=== PATIENT | male | born 1945 | race Caucasian/White ===

== ENCOUNTER 2016-06-21 17:43 | Inpatient (IN) | payer MEDICARE ==
[2016-06-21 18:20] LABS: Anisocytosis Slight; Basophils % (A) 0 %; CHCM 33.1; Eosinophils # (A) 0.1 k/uL (0-0.7); Eosinophils % (A) 1 %; HCT 38.8 % (39.0-53.0); HDW 3.35; HGB 12.5 gm/dL (13.0-17.5); Hypochromasia Slight; Luc % (Auto) 1; Lymphocytes # (A) 0.4 k/uL (1.0-4.8); Lymphocytes % (A) 4 %; MCH 30.6 pg (25.0-35.0); MCHC 32.2 g/dL (31.0-37.0); MCV 94.8 fL (80.0-100.0); Mean Platelet Volume 7.1; Monocytes # (A) 0.4 k/uL (0-1.0); Monocytes % (A) 4 %; Neutrophils # (A) 8.6 k/uL (1.3-7.7); Neutrophils % (A) 89 %; RBC 4.09 m/uL (4.30-5.90); RDW 16.4 % (11.5-15.5); WBC 9.7 k/uL (3.8-10.6)
[2016-06-21 18:33] LABS: ALT 31 U/L (21-72); AST 35 U/L (17-59); Alkaline Phosphatase 177 U/L (38-126); Anion Gap 12 mmol/L; Blood Urea Nitrogen 54 mg/dL (9-20); Carbon Dioxide 29 mmol/L (22-30); Chloride 91 mmol/L (98-107); Glucose 104 mg/dL (74-99); INR 1.4 (<1.1); Magnesium 2.4 mg/dL (1.6-2.3); Non-African American GFR(MDRD) 56 (>60 ml/min/1.73 sqM); Partial Thromboplastin Time 28.6 sec (22.0-30.0); Potassium 5.3 mmol/L (3.5-5.1); Sodium 132 mmol/L (137-145); Total Bilirubin 1.3 mg/dL (0.2-1.3)
[2016-06-21 18:52] LABS: Troponin I 0.028 ng/mL (0.000-0.034)
--- NOTE | 2016-06-21 19:21 | ED ---
General Adult HPI - General Chief complaint: Extremity Problem,Nontraumatic Stated complaint: SOB Time Seen by Provider: 06/21/16 17:52 Source: EMS, RN notes reviewed, old records reviewed Mode of arrival: EMS Limitations: physical limitation - History of Present Illness Initial comments: This is a 71-year-old male ER for this. Patient. This patient today presents for evaluation of heart failure. Patient has significant swelling significant shortness of breath and suspected fluid overload with history of heart failure. Patient does have history of liver failure, hypertension, high cholesterol, heart disease, A. fib with RVR and DVT. She has a sinus IHS pain, does admit to infection of his left arm and bilateral legs. Increased weight gain mostly in his abdomenhad prior abdominal paracentesis before. Patient believes his liver failure is due to a call. Patient denies any fevers at this time, mild shortness of breath and cough, patient is on home O2 - Related Data Home Medications Medication Instructions Recorded Confirmed Albuterol Nebulized [Ventolin 2.5 mg INHALATION RT-BID 06/21/16 06/21/16 Nebulized] Albuterol Sulfate [Proair Hfa] 2 puff INHALATION RT-Q6H PRN 06/21/16 06/21/16 Atorvastatin [Lipitor] 10 mg PO HS 06/21/16 06/21/16 Furosemide [Lasix] 80 mg PO BID 06/21/16 06/21/16 Metoprolol Tartrate [Lopressor] 50 mg PO Q12H 06/21/16 06/21/16 Spironolactone 50 mg PO DAILY 06/21/16 06/21/16 Allergies Allergy/AdvReac Type Severity Reaction Status Date / Time No Known Allergies Allergy Verified 06/21/16 18:33 Review of Systems ROS Statement: Those systems with pertinent positive or pertinent negative responses have been documented in the HPI. ROS Other: All systems not noted in ROS Statement are negative. Past Medical History Past Medical History: Atrial Fibrillation, Coronary Artery Disease (CAD), Heart Failure, Deep Vein Thrombosis (DVT), Hyperlipidemia, Hypertension, Liver Disease , Skin Disorder History of Any Multi-Drug Resistant Organisms: MRSA Past Surgical History: No Surgical Hx Reported Past Psychological History: No Psychological Hx Reported Smoking Status: Current every day smoker Past Alcohol Use History: Daily Past Drug Use History: None Reported General Exam Limitations: physical limitation General appearance: alert, in no apparent distress Head exam: Present: atraumatic, normocephalic, normal inspection Eye exam: Present: normal appearance, PERRL, EOMI. Absent: scleral icterus, conjunctival injection, periorbital swelling ENT exam: Present: normal exam, mucous membranes moist Neck exam: Present: normal inspection. Absent: tenderness, meningismus, lymphadenopathy Respiratory exam: Present: normal lung sounds bilaterally. Absent: respiratory distress, wheezes, rales, rhonchi, stridor Cardiovascular Exam: Present: regular rate, normal rhythm, normal heart sounds. Absent: systolic murmur, diastolic murmur, rubs, gallop, clicks GI/Abdominal exam: Present: soft, normal bowel sounds. Absent: distended, tenderness, guarding, rebound, rigid Extremities exam: Present: normal inspection, full ROM, normal capillary refill. Absent: tenderness, pedal edema, joint swelling, calf tenderness Back exam: Present: normal inspection Neurological exam: Present: alert, oriented X3, CN II-XII intact Psychiatric exam: Present: normal affect, normal mood Skin exam: Present: warm, dry, intact, normal color. Absent: rash Course Vital Signs 06/21/16 06/21/16 06/21/16 17:44 17:55 19:27 Temperature 96.7 F L Pulse Rate 94 128 H Respiratory 24 25 H 24 Rate Blood Pressure 142/76 107/68 O2 Sat by Pulse 100 90 L Oximetry EKG Findings - EKG Comments: EKG Findings:: EKG shows A. fib with RVR rate 1:30, QRS 132, QTC 518 Medical Decision Making - Medical Decision Making 71 male here for evaluation of some studs awaking, patient is of bilateral lower leg cellulitis with left arm cellulitis, patient also has kindly liver failure secondary to EtOH with diffuse ascites, severe weight gain, significant shortness of breath. Patient is on home O2 and currently requiring 5 L of oxygen to maintain pulse ox. Patient will be admitted for both cardiac and GI evaluation patient also in A. fib with RVR which is corrected with Cardizem push - Lab Data Result diagrams: 06/21/16 18:08 06/21/16 18:08 Lab Results 06/21/16 06/21/16 06/21/16 Range/Units 18:08 18:08 18:08 WBC 9.7 (3.8-10.6) k/uL RBC 4.09 L (4.30-5.90) m/uL Hgb 12.5 L (13.0-17.5) gm/dL Hct 38.8 L (39.0-53.0) % MCV 94.8 (80.0-100.0) fL MCH 30.6 (25.0-35.0) pg MCHC 32.2 (31.0-37.0) g/dL RDW 16.4 H (11.5-15.5) % Plt Count 267 (150-450) k/uL Neutrophils % 89 % Lymphocytes % 4 % Monocytes % 4 % Eosinophils % 1 % Basophils % 0 % Neutrophils # 8.6 H (1.3-7.7) k/uL Lymphocytes # 0.4 L (1.0-4.8) k/uL Monocytes # 0.4 (0-1.0) k/uL Eosinophils # 0.1 (0-0.7) k/uL Basophils # 0.0 (0-0.2) k/uL Hypochromasia Slight Anisocytosis Slight PT (9.0-12.0) sec INR (<1.1) APTT (22.0-30.0) sec Sodium 132 L (137-145) mmol/L Potassium 5.3 H (3.5-5.1) mmol/L Chloride 91 L (98-107) mmol/L Carbon Dioxide 29 (22-30) mmol/L Anion Gap 12 mmol/L BUN 54 H (9-20) mg/dL Creatinine 1.27 H (0.66-1.25) mg/dL Est GFR (MDRD) Af Amer >60 (>60 ml/min/1.73 sqM) Est GFR (MDRD) Non-Af 56 (>60 ml/min/1.73 sqM) Glucose 104 H (74-99) mg/dL Calcium 9.0 (8.4-10.2) mg/dL Phosphorus 4.0 (2.5-4.5) mg/dL Magnesium 2.4 H (1.6-2.3) mg/dL Total Bilirubin 1.3 (0.2-1.3) mg/dL AST 35 (17-59) U/L ALT 31 (21-72) U/L Alkaline Phosphatase 177 H (38-126) U/L Total Creatine Kinase 125 (55-170) U/L CK-MB (CK-2) 10.0 H* (0.0-2.4) ng/mL CK-MB (CK-2) Rel Index 8.0 Troponin I 0.028 (0.000-0.034) ng/mL NT-Pro-B Natriuret Pep pg/mL Total Protein 7.0 (6.3-8.2) g/dL Albumin 3.6 (3.5-5.0) g/dL 06/21/16 06/21/16 Range/Units 18:08 18:08 WBC (3.8-10.6) k/uL RBC (4.30-5.90) m/uL Hgb (13.0-17.5) gm/dL Hct (39.0-53.0) % MCV (80.0-100.0) fL MCH (25.0-35.0) pg MCHC (31.0-37.0) g/dL RDW (11.5-15.5) % Plt Count (150-450) k/uL Neutrophils % % Lymphocytes % % Monocytes % % Eosinophils % % Basophils % % Neutrophils # (1.3-7.7) k/uL Lymphocytes # (1.0-4.8) k/uL Monocytes # (0-1.0) k/uL Eosinophils # (0-0.7) k/uL Basophils # (0-0.2) k/uL Hypochromasia Anisocytosis PT 14.0 H (9.0-12.0) sec INR 1.4 (<1.1) APTT 28.6 (22.0-30.0) sec Sodium (137-145) mmol/L Potassium (3.5-5.1) mmol/L Chloride (98-107) mmol/L Carbon Dioxide (22-30) mmol/L Anion Gap mmol/L BUN (9-20) mg/dL Creatinine (0.66-1.25) mg/dL Est GFR (MDRD) Af Amer (>60 ml/min/1.73 sqM) Est GFR (MDRD) Non-Af (>60 ml/min/1.73 sqM) Glucose (74-99) mg/dL Calcium (8.4-10.2) mg/dL Phosphorus (2.5-4.5) mg/dL Magnesium (1.6-2.3) mg/dL Total Bilirubin (0.2-1.3) mg/dL AST (17-59) U/L ALT (21-72) U/L Alkaline Phosphatase (38-126) U/L Total Creatine Kinase (55-170) U/L CK-MB (CK-2) (0.0-2.4) ng/mL CK-MB (CK-2) Rel Index Troponin I (0.000-0.034) ng/mL NT-Pro-B Natriuret Pep 05629 pg/mL Total Protein (6.3-8.2) g/dL Albumin (3.5-5.0) g/dL - Radiology Data Radiology results: report reviewed (Chest x-ray negative for acute disease), image reviewed Disposition Clinical Impression: Cellulitis, Left arm cellulitis, Bilateral lower leg cellulitis, Ascites, CHF ( congestive heart failure), Atrial fibrillation with RVR Disposition: ADMITTED IP TO THIS HOSP Condition: Poor
[2016-06-21] MEDS ORDERED: IV VANCOMYCIN PER PHARMACY 1 EACH MISC MISCELLANE PRN (19:48)
[2016-06-21] MEDS: FUROSEMIDE 10 MG/ML 4 ML VIAL IV SCH (20:00)
[2016-06-21] MEDS ORDERED: VANCOMYCIN 1,750 MG in SODIUM CHLORIDE 0.9% 250 ML IVPB ONE (20:00)
[2016-06-21] MEDS ORDERED: HEPARIN SODIUM,PORCINE 5,000 UNIT/ML 1 ML VIAL IV PRN (20:15)
[2016-06-21] MEDS ORDERED: LEVALBUTEROL NEB 1.25 MG/3 ML AMP INHALATION STA (20:15)
[2016-06-21] MEDS ORDERED: HEPARIN SODIUM,PORCINE 5,000 UNIT/ML 1 ML VIAL IV ONE (20:15)
[2016-06-21] MEDS ORDERED: IPRATROPIUM 0.5 MG/2.5 ML NEBU INHALATION STA (20:15)
[2016-06-21] MEDS ORDERED: HEPARIN SODIUM,PORCINE/D5W PMX 25,000 UNIT in DEXTROSE/WATER 1 500ML.BAG IV SCH (20:15)
--- NOTE | 2016-06-21 20:15 | XR ---
EXAMINATION TYPE: XR chest 2V DATE OF EXAM: 06/21/2016 8:09 PM COMPARISON: NONE HISTORY: Shortness of breath TECHNIQUE: Frontal and lateral views of the chest are obtained. FINDINGS: Scattered senescent parenchymal changes noted. Hyperinflation compatible with COPD. Right basilar pleural effusion with associated atelectasis or infiltrate difficult to exclude. Heart size is enlarged without evidence for overt failure at this time. Mediastinal structures are stable and grossly unremarkable. No evidence for hilar prominence. Degenerative changes dorsal spine. IMPRESSION: 1. Right basilar pleural effusion with associated atelectasis or infiltrate difficult to exclude.
[2016-06-21] MEDS ORDERED: ALBUTEROL INHALER 60 PUFF/8 GM INHALER INHALATION PRN (21:52)
[2016-06-21] MEDS: METOPROLOL TARTRATE 50 MG TAB PO SCH (23:46)
[2016-06-21] MEDS: ATORVASTATIN 10 MG TAB PO SCH (23:47)
[2016-06-22] MEDS ORDERED: IPRATROPIUM-ALBUTEROL 3 ML NEB INHALATION SCH
[2016-06-22 02:35] LABS: Appearance,Urine Clear (Clear); Bilirubin,Urine Negative (Negative); Glucose,Urine (UA) Negative (Negative); Ketones,Urine Negative (Negative); Leukocyte Esterase,Urine Negative (Negative); Nitrite,Urine Negative (Negative); Protein,Urine Trace (Negative); Specific Gravity,Urine 1.011 (1.001-1.035); UA Billing (MACRO vs. MICRO) CHEM
[2016-06-22 02:44] LABS: Anisocytosis Slight; Basophils # (A) 0.1 k/uL (0-0.2); Basophils % (A) 1 %; CH 30.8; CHCM 31.4; Eosinophils # (A) 0.1 k/uL (0-0.7); Eosinophils % (A) 1 %; HDW 3.25; HGB 12.2 gm/dL (13.0-17.5); Hypochromasia Moderate; Luc # (Auto) 0.12; Luc % (Auto) 1; Lymphocytes # (A) 0.5 k/uL (1.0-4.8); Lymphocytes % (A) 4 %; MCH 29.6 pg (25.0-35.0); MCHC 29.9 g/dL (31.0-37.0); MCV 99.1 fL (80.0-100.0); Macrocytosis Slight; Mean Platelet Volume 7.9; Monocytes # (A) 0.6 k/uL (0-1.0); Monocytes % (A) 6 %; Neutrophils % (A) 87 %; RBC 4.13 m/uL (4.30-5.90); RDW 16.5 % (11.5-15.5); WBC 10.3 k/uL (3.8-10.6); WBC (Perox) 10.61
[2016-06-22] MEDS: FUROSEMIDE 10 MG/ML 4 ML VIAL IV SCH (07:23)
[2016-06-22] MEDS ORDERED: ALBUTEROL NEBULIZED 2.5 MG/3 ML INHALATION SCH (08:00)
[2016-06-22] MEDS: IPRATROPIUM-ALBUTEROL 3 ML NEB INHALATION SCH ×4 (08:21→20:45)
[2016-06-22] MEDS ORDERED: ENOXAPARIN 40 MG/0.4 ML SYRINGE SQ SCH (09:00)
[2016-06-22] MEDS ORDERED: SPIRONOLACTONE 25 MG TAB PO SCH ×2 (09:00)
[2016-06-22] MEDS: METOPROLOL TARTRATE 50 MG TAB PO SCH (09:50)
--- NOTE | 2016-06-22 10:08 | P.CRDCN ---
History of Present Illness Consult date: 06/22/16 Requesting physician: Constantin Zaldivar Consult reason: shortness of breath Chief complaint: Shortness of breath History of present illness: This is a 71-year-old gentleman with known history of EtOH abuse, nicotine dependence, ascites, liver failure, hypertension, hyperlipidemia, COPD with home O2 use,, he presents to the hospital with symptoms of progressive shortness of breath as well as significant fluid overload abdominally. Patient has undergone prior paracentesis in the past at [facility]. Cardiology consultation was requested because of a possible congestive cardiac failure. Patient also has history of chronic persistent atrial fibrillation, EKG on admission shows atrial fibrillation with rapid ventricular response and a right bundle branch block pattern. He is not on anticoagulation at home. Blood pressure on arrival here 142/76, temperature 96.7, heart rate initially in the 90s, up into the 120s, fluctuating. Lab data reviewed, hemoglobin 12.2, platelet count 240, calcium 5.3, BUN 54, creatinine 1.2. Magnesium level II.4. Troponin 0.028, 0.043, 0.052. BNP level 36,900. Chest x-ray reveals right basilar pleural effusion with associated atelectasis. Patient was initiated on IV Lasix in the emergency room, urine output is minimal. Past Medical History Past Medical History: Atrial Fibrillation, Coronary Artery Disease (CAD), Heart Failure, Deep Vein Thrombosis (DVT), Hyperlipidemia, Hypertension, Liver Disease , Skin Disorder History of Any Multi-Drug Resistant Organisms: MRSA Date of last positivie culture/infection: unknown MDRO Source:: unknown Past Surgical History: No Surgical Hx Reported Past Anesthesia/Blood Transfusion Reactions: No Reported Reaction Past Psychological History: No Psychological Hx Reported Smoking Status: Current every day smoker Past Alcohol Use History: Daily Past Drug Use History: None Reported - Past Family History Father History Unknown: Yes Mother History Unknown: Yes Brother(s) Additional Family Medical History / Comment(s): polio Medications and Allergies Home Medications Medication Instructions Recorded Confirmed Type Albuterol Nebulized [Ventolin 2.5 mg INHALATION RT-BID 06/21/16 06/21/16 History Nebulized] Albuterol Sulfate [Proair Hfa] 2 puff INHALATION RT-Q6H PRN 06/21/16 06/21/16 History Atorvastatin [Lipitor] 10 mg PO HS 06/21/16 06/21/16 History Furosemide [Lasix] 80 mg PO BID 06/21/16 06/21/16 History Metoprolol Tartrate [Lopressor] 50 mg PO Q12H 06/21/16 06/21/16 History Spironolactone 50 mg PO DAILY 06/21/16 06/21/16 History Allergies Allergy/AdvReac Type Severity Reaction Status Date / Time No Known Allergies Allergy Verified 06/21/16 22:31 Physical Exam Vitals: Vital Signs Temp Pulse Pulse Resp BP BP Pulse Ox 06/22/16 08:46 118 H 06/22/16 08:33 120 H 20 90 L 06/22/16 04:00 102 H 20 118/76 90 L 06/22/16 00:00 98.3 F 118 H 24 112/70 91 L 06/21/16 21:50 119 H 24 119/77 90 L 06/21/16 21:09 145 H 06/21/16 21:00 112 H 24 122/74 90 L Intake and Output 06/21/16 06/22/16 06/22/16 22:59 06:59 14:59 Intake Total 171.222 Output Total 150 Balance -150 171.222 Intake: IV 60 0.9 60 Intake, IV Titration 111.222 Amount Heparin Sodium,Porcine/ 111.222 D5w Pmx 25,000 unit In Dextrose/Water 1 500ml. bag @ 9.03 UNITS/KG/HR 19 .98 mls/hr IV .Q24H [facility] Rx#:[id number] Output: Urine 150 Other: Voiding Method Urinal # Voids 1 # Bowel Movements 1 Weight 111 kg PHYSICAL EXAMINATION: HEENT: Head is atraumatic, normocephalic. Pupils equal, round. Neck is supple. There is elevated jugular venous pressure. HEART EXAMINATION: Heart S1 and S2 irregular irregular a systolic murmur is heard. CHEST EXAMINATION: Lungs reveal scattered coarse wheezes throughout with diminished air entry to bilateral bases. ABDOMEN: Distended, firm, bowel sounds heard. . EXTREMITIES: 1+ peripheral pulses with 2+ evidence of peripheral edema and no calf tenderness noted. Evidence of venous stasis and chronic ulcerations bilaterally. NEUROLOGIC patient is awake, alert and oriented -3. . Results 06/22/16 02:24 06/21/16 18:08 Cardiac Enzymes 06/22/16 Range/Units 02:24 Troponin I 0.043 H* (0.000-0.034) ng/mL Coagulation 06/22/16 Range/Units 02:24 APTT 50.9 H (22.0-30.0) sec CBC 06/22/16 Range/Units 02:24 WBC 10.3 (3.8-10.6) k/uL RBC 4.13 L (4.30-5.90) m/uL Hgb 12.2 L (13.0-17.5) gm/dL Hct 41.0 (39.0-53.0) % Plt Count 240 (150-450) k/uL Current Medications Generic Name Dose Route Start Last Admin Trade Name Freq PRN Reason Stop Dose Admin Albuterol/Ipratropium 3 ml 06/22/16 08:00 06/22/16 08:21 Duoneb 0.5 Mg-3 Mg/3 Ml Soln INHALATION 3 ml RT-QID [facility] Administration Albuterol/Ipratropium 3 ml 06/21/16 20:29 Duoneb 0.5 Mg-3 Mg/3 Ml Soln INHALATION RT-Q2H PRN Shortness Of Breath Or Wheezing Atorvastatin Calcium 10 mg 06/21/16 22:00 06/21/16 23:47 Lipitor PO 10 mg HS [facility] Administration Furosemide 40 mg 06/21/16 19:45 06/22/16 07:23 Lasix IV 40 mg Q12H [facility] Administration Heparin Sodium (Porcine) 0 unit 06/21/16 20:15 Heparin IV PER PROTOCOL PRN Low PTT Protocol Vancomycin HCl 1,750 mg/ 250 mls @ 125 mls/hr 06/22/16 12:00 Sodium Chloride IVPB Q16H [facility] Heparin Sodium/Dextrose 25,000 500 mls @ 19.98 mls/hr 06/21/16 20:15 02:54 unit/ IV Solution IV 9.03 units/kg/hr .Q24H [facility] 19.98 mls/hr Protocol Titration 9.03 UNITS/KG/HR Metoprolol Tartrate 50 mg 06/21/16 22:00 06/21/16 23:46 Lopressor PO 50 mg Q12H [facility] Administration Spironolactone 25 mg 06/22/16 09:00 Aldactone PO DAILY [facility] Intake and Output 06/21/16 06/22/1606/22/17 22:59 06:59 14:59 Intake Total 171.222 Output Total 150 Balance -150 171.222 Intake: IV 60 0.9 60 Intake, IV Titration 111.222 Amount Heparin Sodium,Porcine/ 111.222 D5w Pmx 25,000 unit In Dextrose/Water 1 500ml. bag @ 9.03 UNITS/KG/HR 19 .98 mls/hr IV .Q24H [facility] Rx#:[id number] Output: Urine 150 Other: Voiding Method Urinal # Voids 1 # Bowel Movements 1 Weight 111 kg 06/22/16 02:24 EKG Interpretations (text) EKG shows atrial fibrillation with a rapid ventricular response, right bundle branch block pattern. Assessment and Plan Plan: Assessment and plan #1 congestive cardiac failure, unsure at this time if it is diastolic or systolic in nature. Patient is on IV Lasix. #2 ascites, patient has history of liver failure with prior paracentesis in the past. #3 hypertension #4 COPD # 5 hyperlipidemia #6 chronic persistent atrial fibrillation, not on anticoagulation at home. Currently on IV heparin. #7 nicotine dependence #8 EtOH abuse #9 hyperkalemia #10 troponin abnormality, not consistent with acute coronary syndrome, likely secondary to oxygen supply and demand mismatch. Plan We will obtain an echocardiogram with Doppler study. We will also discontinue the IV push Lasix and start the patient on a Lasix drip. Monitor intake and output and daily weights, along with daily lytes BUN and creatinine closely. Check free T4 and TSH. We will also hold the patient's Aldactone at this time because of elevated potassium. Patient was seen in consultation by GI service and plans are being made to perform paracentesis. Further recommendations to follow. DNP note has been reviewed, I agree with a documented findings and plan of care. Patient was seen and examined.
[2016-06-22] MEDS: FUROSEMIDE 250 MG in SODIUM CHLORIDE 0.9% 225 ML IVP SCH (10:55)
--- NOTE | 2016-06-22 11:39 | P.CONS ---
History of Present Illness - Reason for Consult Consult date: 06/22/16 ascites Requesting physician: Constantin Zaldivar - History of Present Illness 71-year-old gentleman patient of Dr. Andersen with a past medical history of chronic atrial fibrillation, alcohol liver cirrhosis, EtOH abuse with active daily alcohol consumption, portal hypertension, ascites with paracentesis, COPD O2 dependent, CAD, heart failure, DVT, hypertension, hyperlipidemia, MRSA, and nicotine cigarette dependency. Admitted with shortness of breath and ascites. He's had a few paracentesis is done over the last year at [facility] last paracentesis about 5-6 months ago. Patient requested for ascites. Patient has a distended abdomen as well as lower extremities. He is receiving intravenous heparin as well as diuretics. Troponin 0.028-0.052. BMP 36,000. Afebrile. No reports of hematemesis, hematochezia, or melena. Receiving IV vancomycin for suspected cellulitis of the extremities. Hemoglobin 12.2. Platelet 240. INR 1.4. BUN 54. Creatinine 1.2. Potassium 5.3. Magnesium 2.4. Repeat comprehensive metabolic panel pending today. Admission transaminases total bilirubin 1.3. AST 35. ALT 31. Alkaline phosphatase 177. Review of Systems All systems: negative (See HPI) Past Medical History Past Medical History: Atrial Fibrillation, Coronary Artery Disease (CAD), Heart Failure, Deep Vein Thrombosis (DVT), Hyperlipidemia, Hypertension, Liver Disease , Skin Disorder History of Any Multi-Drug Resistant Organisms: MRSA Year Discovered:: unknown MDRO Source:: unknown Past Surgical History: No Surgical Hx Reported Past Anesthesia/Blood Transfusion Reactions: No Reported Reaction Past Psychological History: No Psychological Hx Reported Smoking Status: Current every day smoker Past Alcohol Use History: Daily Past Drug Use History: None Reported - Past Family History Father History Unknown: Yes Mother History Unknown: Yes Brother(s) Additional Family Medical History / Comment(s): polio Medications and Allergies Home Medications Medication Instructions Recorded Confirmed Type Albuterol Nebulized [Ventolin 2.5 mg INHALATION RT-BID 06/21/16 06/21/16 History Nebulized] Albuterol Sulfate [Proair Hfa] 2 puff INHALATION RT-Q6H PRN 06/21/16 06/21/16 History Atorvastatin [Lipitor] 10 mg PO HS 06/21/16 06/21/16 History Furosemide [Lasix] 80 mg PO BID 06/21/16 06/21/16 History Metoprolol Tartrate [Lopressor] 50 mg PO Q12H 06/21/16 06/21/16 History Spironolactone 50 mg PO DAILY 06/21/16 06/21/16 History Allergies Allergy/AdvReac Type Severity Reaction Status Date / Time No Known Allergies Allergy Verified 06/21/16 22:31 Physical Exam Vitals: Vital Signs Temp Pulse Pulse Resp BP BP Pulse Ox 06/22/16 11:28 90 06/22/16 11:16 90 06/22/16 10:23 92 91 L 06/22/16 09:15 95 F L 92 20 100/58 85 L 06/22/16 08:46 118 H 06/22/16 08:33 120 H 20 90 L 06/22/16 08:00 20 06/22/16 04:00 102 H 20 118/76 90 L 06/22/16 00:00 98.3 F 118 H 24 112/70 91 L 06/21/16 21:50 119 H 24 119/77 90 L 06/21/16 21:09 145 H 06/21/16 21:00 112 H 24 122/74 90 L Intake and Output 06/21/16 06/22/16 06/22/16 22:59 06:59 14:59 Intake Total 171.222 Output Total 150 Balance -150 171.222 Intake: IV 60 0.9 60 Intake, IV Titration 111.222 Amount Heparin Sodium,Porcine/ 111.222 D5w Pmx 25,000 unit In Dextrose/Water 1 500ml. bag @ 9.03 UNITS/KG/HR 19 .98 mls/hr IV .Q24H [facility] Rx#:[id number] Output: Urine 150 Other: Voiding Method Urinal Urinal # Voids 1 # Bowel Movements 1 Weight 111 kg General appearance: The patient is alert, oriented, mild shortness of breath. HET: Head is normocephalic and atraumatic. Pupils are equal and reactive. Oropharynx is clear without lesions. Neck: Supple without lymphadenopathy. Trachea midline. Heart: S1 S2. Regular rate and rhythm. Lungs: Managed bilaterally. Abdomen: Distended tense with ascites with bowel sounds sounds. No peritoneal signs. No palpable organomegaly or masses. Extremities: Diffuse scaly skin multiple hyperkeratosis areas on all extremities , face with telangiectasia. No asterixis. +2/+3 bilaterally lower extremity edema. Neurological: No focal deficits. Strength and sensation are grossly intact. Results CBC & Chem 7: 06/22/16 02:24 06/21/16 18:08 Labs: Abnormal Lab Results - Last 24 Hours (Table) 06/22/16 06/22/16 06/22/16 Range/Units 00:00 02:24 02:24 RBC (4.30-5.90) m/uL Hgb (13.0-17.5) gm/dL MCHC (31.0-37.0) g/dL RDW (11.5-15.5) % Neutrophils # (1.3-7.7) k/uL Lymphocytes # (1.0-4.8) k/uL APTT 50.9 H (22.0-30.0) sec Troponin I 0.043 H* (0.000-0.034) ng/mL Urine Protein Trace H (Negative) 06/22/16 06/22/16 Range/Units 02:24 08:20 RBC 4.13 L (4.30-5.90) m/uL Hgb 12.2 L (13.0-17.5) gm/dL MCHC 29.9 L (31.0-37.0) g/dL RDW 16.5 H (11.5-15.5) % Neutrophils # 9.0 H (1.3-7.7) k/uL Lymphocytes # 0.5 L (1.0-4.8) k/uL APTT (22.0-30.0) sec Troponin I 0.052 H* (0.000-0.034) ng/mL Urine Protein (Negative) Assessment and Plan (1) Ascites Narrative/Plan: Acute on chronic Status: Chronic (2) Alcoholic liver disease Status: Chronic (3) Portal hypertension Status: Chronic (4) Coagulopathy Status: Chronic (5) ETOH abuse Status: Chronic (6) Atrial fibrillation with RVR Status: Acute (7) CHF (congestive heart failure) Status: Acute (8) MRSA (methicillin resistant Staphylococcus aureus) Narrative/Plan: History of MRSA Status: Chronic Plan: 1. IV diuretics. Recommend Aldactone 100 mg daily once potassium improves. 2. Consult interventional radiology. Ultrasound abdomen evaluation of ascites and proceed with therapeutic diagnostic paracentesis. 3. Ammonia level in the a.m. Supportive measures. Alcohol abstinence strongly advised. Thank you for this kind referral and the opportunity to participate in the care of your patient. This consultation was discussed with Dr. Rodríguez. The impression and plan of care have been directed as dictated.
[2016-06-22] MEDS: SPIRONOLACTONE 25 MG TAB PO SCH ×2 (12:21→22:29)
[2016-06-22] MEDS: VANCOMYCIN 1,750 MG in SODIUM CHLORIDE 0.9% 250 ML IVPB SCH (12:27)
[2016-06-22 12:30] LABS: INR 1.5 (<1.1); Prothrombin Time 14.4 sec (9.0-12.0)
--- NOTE | 2016-06-22 13:01 | HP ---
DATE OF ADMISSION: 06/21/2016 PRESENTING COMPLAINT: Short of breath, swelling. HISTORY OF PRESENTING COMPLAINT: This is a 71-year-old patient of Dr. Darien Andersen. Patient is a poor historian with ( ) medical history of hyperlipidemia, hypertension, liver disease. The patient is a smoker, says he drinks 2 beers but probably drank much more in the past. He has been told he had got liver disease. He did see Dr. Andersen about a month ago. Progressively his abdomen has got distended, lower extremity edema, short of breath. Patient is cyanosed. The patient is started on a Lasix drip. The patient is also short of breath. REVIEW OF SYSTEMS: CONSTITUTIONAL: Weak, tired. HEENT: None. RESPIRATORY: Short of breath slight cough. CARDIOVASCULAR: No chest pain. GASTROINTESTINAL: Abdominal distention. GENITOURINARY: None. MUSCULOSKELETAL: None. DERMATOLOGICAL: Chronic change lower extremity and some redness. PSYCHIATRY: None. NEUROLOGICAL: Decreased sensation in the feet. PAST MEDICAL HISTORY: Questionable atrial fibrillation, coronary artery disease, CHF, DVT, hyperlipidemia, hypertension, liver disease. PAST SURGICAL HISTORY: None reported. SOCIAL HISTORY: The patient smokes a pack and a half day and drinks 2 or 3 beers a day more so in the past. Lives by himself. FAMILY HISTORY: Reviewed noncontributory on presentation. HOME MEDICATIONS: 1. Aldactone 50 mg a day. 2. Lopressor 50 mg p.o. q.12. 3. Lasix 80 mg b.i.d. 4. Lipitor 10 mg q.h.s. 5. ProAir 2 puffs q.6 p.r.n. 6. Ventolin nebulizer b.i.d. ALLERGIES: None. ON EXAMINATION: VITAL SIGNS ON PRESENTATION: Temperature 96.7, pulse 120, respirations 25, blood pressure 142/76, pulse ox 100% on 2 L, repeat is 90% on 4 L. GENERAL APPEARANCE: Very disheveled. BMI 32.3. Lying in bed. EYES: Pupils equal. Conjunctivae ( ) appearing. HEENT: Patient got facial discoloration with scaling. Oral cavity poor dental hygiene. NECK: JVD. Neck veins are prominent. Mass not palpable. RESPIRATORY: Effort increased. LUNGS: Diminished breath sounds, poor air entry. CARDIOVASCULAR: Sounds are muffled. Edema present. ABDOMEN: Distended, tense, minimal tenderness. Liver and spleen unable to palpate. LYMPHATIC: No lymph node palpable in the neck or axillae. PSYCHIATRY: Awake, answering questions. DERMATOLOGICAL: Gross discoloration of lower extremity with cyanosis, central cyanosis and distal cyanosis. Nails are onychomycosis and also there is discoloration of lower extremity with lichenification. NEUROLOGICAL: Decreased sensation, especially distally. Also the patient upper extremity similar findings are present. INVESTIGATIONS: White count 9.7, hemoglobin 12.5, platelets 267. Pro time 14. Potassium 5.3. BUN 54, creatinine 1.27. Bilirubin 1.3. Pro-BNP 36,900. Albumin 3.6. EKG shows atrial fibrillation, rate about 130. Chest x-ray shows gross cardiomegaly, pulmonary edema. ASSESSMENT: 1. Acute on chronic congestive heart failure exacerbation, severe. 2. Acute respiratory failure, hypoxic, present on admission, from underlying chronic obstructive pulmonary disease/congestive heart failure. 3. Acute chronic obstructive pulmonary disease exacerbation in a smoker. 4. Chronic nicotine dependence. Patient is a smoker. 5. Persistent atrial fibrillation with rapid ventricular rate. 6. Possibly chronic kidney disease. 7. History of chronic alcoholism. 8. Troponin leak probably from hemodynamic mismatch. 9. Acute cellulitis, both upper in upper extremities and lower extremities. 10. Tense ascites, could be combination from cor pulmonale and from liver disease. PLAN: Patient was put on Lasix drip. Will also add ( ). A 2-D echocardiogram is ordered. Also, patient was put on nebulized bronchodilator, will give a nicotine patch. Patient clinically also got tense ascites, which will need to be tapped. The patient also got some evidence of cellulitis, will be put on antibiotics for the same.
--- NOTE | 2016-06-22 14:45 | P.CNPUL ---
History of Present Illness Consult date: 06/22/16 Requesting physician: Constantin Zaldivar Reason for consult: pleural effusion, abnormal CXR/CT Chief complaint: Lower extremity edema and shortness of breath History of present illness: This is a 71-year-old gentleman who follows with Dr. Andersen as his primary care physician. He has a past medical history of hyperlipidemia, hypertension, atrial fibrillation, congestive heart failure, DVT and alcoholic liver disease. He has had paracentesis in the past, most recently 5-6 months ago at [facility]. He also has a 50 pack per day smoking history and he only utilizes pro-air in the outpatient setting. He is oxygen dependent at home, usually 3-4 L. The patient appears chronically ill. He has significant lower extremity edema with weeping and redness with suspected cellulitis. He has significant abdominal distention. He is also found to be in atrial fibrillation with a rapid ventricular response. His proBNP level was greater than 36,000, TSH 11.0. His chest x-ray does reveal a right basilar pleural effusion with associated atelectasis and possible infiltrate. Abdominal ultrasound is pending. He may require paracentesis on this admission. Presently he is seen in the selective care unit. He is awake and alert and slight respiratory distress. He is maintaining O2 saturations in the low 90s on 10 L of high flow nasal cannula. His been initiated on Lasix drip currently at 10 mg per hour. He is also on Aldactone. We will continue with bronchodilators and antibiotics in the form of vancomycin. Review of Systems 14 point review of system was conducted. All negative other than as mentioned in HPI. Past Medical History Past Medical History: Atrial Fibrillation, Coronary Artery Disease (CAD), Heart Failure, Deep Vein Thrombosis (DVT), Hyperlipidemia, Hypertension, Liver Disease , Skin Disorder History of Any Multi-Drug Resistant Organisms: MRSA Date of last positivie culture/infection: unknown MDRO Source:: unknown Past Surgical History: No Surgical Hx Reported Past Anesthesia/Blood Transfusion Reactions: No Reported Reaction Past Psychological History: No Psychological Hx Reported Smoking Status: Current every day smoker Past Alcohol Use History: Daily Past Drug Use History: None Reported - Past Family History Father History Unknown: Yes Mother History Unknown: Yes Brother(s) Additional Family Medical History / Comment(s): polio Medications and Allergies Home Medications Medication Instructions Recorded Confirmed Type Albuterol Nebulized [Ventolin 2.5 mg INHALATION RT-BID 06/21/16 06/21/16 History Nebulized] Albuterol Sulfate [Proair Hfa] 2 puff INHALATION RT-Q6H PRN 06/21/16 06/21/16 History Atorvastatin [Lipitor] 10 mg PO HS 06/21/16 06/21/16 History Furosemide [Lasix] 80 mg PO BID 06/21/16 06/21/16 History Metoprolol Tartrate [Lopressor] 50 mg PO Q12H 06/21/16 06/21/16 History Spironolactone 50 mg PO DAILY 06/21/16 06/21/16 History Allergies Allergy/AdvReac Type Severity Reaction Status Date / Time No Known Allergies Allergy Verified 06/21/16 22:31 Physical Exam Vitals: Vital Signs Temp Pulse Pulse Resp BP BP Pulse Ox 06/22/16 12:20 100 93 L 06/22/16 11:35 98 24 102/65 75 L 06/22/16 11:28 90 06/22/16 11:16 90 06/22/16 10:23 92 91 L 06/22/16 09:15 95 F L 92 20 100/58 85 L 06/22/16 08:46 118 H 06/22/16 08:33 120 H 20 90 L 06/22/16 08:00 20 06/22/16 04:00 102 H 20 118/76 90 L 06/22/16 00:00 98.3 F 118 H 24 112/70 91 L 06/21/16 21:50 119 H 24 119/77 90 L 06/21/16 21:09 145 H 06/21/16 21:00 112 H 24 122/74 90 L Intake and Output 06/21/16 06/22/16 06/22/16 22:59 06:59 14:59 Intake Total 171.222 200 Output Total 150 Balance -150 171.222 200 Intake: IV 60 0.9 60 Intake, IV Titration 111.222 Amount Heparin Sodium,Porcine/ 111.222 D5w Pmx 25,000 unit In Dextrose/Water 1 500ml. bag @ 9.03 UNITS/KG/HR 19 .98 mls/hr IV .Q24H [facility] Rx#:[id number] Oral 200 Output: Urine 150 Other: Voiding Method Urinal Urinal # Voids 1 # Bowel Movements 1 Weight 111 kg GENERAL EXAM: Alert, comfortable at rest in no acute distress. HEAD: Normocephalic. EYES: Normal reaction of pupils, equal size. NOSE: Clear with pink turbinates. THROAT: No erythema or exudates. NECK: No masses, positive JVD. CHEST: No chest wall deformity. LUNGS: Equal air entry with crackles in the bilateral posterior bases, more so on the right. CVS: S1 and S2 normal with no audible murmurs, regular rhythm. ABDOMEN: Distended, positive fluid wave. Normal bowel sounds, no guarding or rigidity. Extremities: There is 2-3+ lower extremity peripheral edema. Redness and changes of chronic venous stasis. Peripheral pulses are intact. Results - Laboratory Findings CBC and BMP: 06/22/16 02:24 06/21/16 18:08 PT/INR, D-dimer PT 14.4 sec (9.0-12.0) H 06/22/16 02:24 INR 1.5 (<1.1) 06/22/16 02:24 Abnormal lab findings: Abnormal Labs 06/22/16 06/22/16 06/22/16 00:00 02:24 02:24 RBC Hgb MCHC RDW Neutrophils # Lymphocytes # PT APTT 50.9 H Troponin I 0.043 H* TSH Urine Protein Trace H 06/22/16 06/22/16 06/22/16 02:24 02:24 08:20 RBC 4.13 L Hgb 12.2 L MCHC 29.9 L RDW 16.5 H Neutrophils # 9.0 H Lymphocytes # 0.5 L PT 14.4 H APTT Troponin I 0.052 H* TSH Urine Protein 06/22/16 08:20 RBC Hgb MCHC RDW Neutrophils # Lymphocytes # PT APTT Troponin I TSH 11.000 H Urine Protein - Diagnostic Findings Chest x-ray: image reviewed Assessment and Plan Plan: Impression: #1 Dyspnea, multifactorial in a patient found to have significant abdominal ascites, acute exacerbation of chronic obstructive pulmonary disease complicated by suspected right lower lobe atelectasis/infiltrate, acute exacerbation of suspected diastolic congestive heart failure, atrial fibrillation with rapid ventricular response. #2 Acute exacerbation of suspected chronic obstructive pulmonary disease. #3 50+ year pack per day smoking history. #4 Basilar pleural effusion with associated atelectasis/infiltrate. #5 ascites secondary to alcoholic liver disease. #6 Daily alcohol use. #7 Atrial fibrillation with rapid ventricular response, not anticoagulated in the outpatient setting. #8 Chronic lower extremity edema or #9 Acute on chronic suspected diastolic versus systolic congestive heart failure. #10 Hyperlipidemia. #11 History of DVT. #12 Hyperlipidemia. #13 Coronary artery disease. #14 Poor overall functional performance secondary to the above-mentioned multiple comorbidities. Plan: The patient was seen and evaluated by Dr. Copeland. His chest x-ray and labs were reviewed. We suspect the patient has a significant amount of chronic obstructive pulmonary disease secondary to his chronic and ongoing tobacco dependence. We'll continue with bronchodilators for now. We'll add Pulmicort and Perforomist inhalations twice a day. A NicoDerm patch will be applied. He is educated regarding the importance of complete smoking cessation is along with complete alcohol cessation. He remains on vancomycin. We'll continue to diurese the patient. The plan is for a paracentesis to be performed by interventional radiology. Anticoagulants are on hold. We'll repeat his chest x -ray in the a.m. We'll continue to follow make further recommendations based on his clinical status.
--- NOTE | 2016-06-22 16:11 | US ---
Limited abdomen ultrasound HISTORY: Ascites Evaluation of the abdomen performed to evaluate for ascites. Moderate ascites is present. IMPRESSION: Ascites
[2016-06-22 16:34] LABS: ALT 33 U/L (21-72); AST 34 U/L (17-59); Alkaline Phosphatase 166 U/L (38-126); Anion Gap 15 mmol/L; Blood Urea Nitrogen 57 mg/dL (9-20); Calcium 9.2 mg/dL (8.4-10.2); Carbon Dioxide 25 mmol/L (22-30); Chloride 94 mmol/L (98-107); Glucose 94 mg/dL (74-99); Non-African American GFR(MDRD) 50 (>60 ml/min/1.73 sqM); Potassium 6.1 mmol/L (3.5-5.1); Sodium 134 mmol/L (137-145); Total Bilirubin 1.3 mg/dL (0.2-1.3); Total Protein 6.7 g/dL (6.3-8.2)
[2016-06-22] MEDS: NICOTINE 21MG/24HR PATCH TRANSDERM SCH (17:22)
[2016-06-22] MEDS ORDERED: SODIUM POLYSTYRENE SULFONATE 15 GM/60 ML BOTTLE PO STA (18:48)
[2016-06-22] MEDS: FORMOTEROL FUMARATE 20 MCG/2 ML NEBU INHALATION SCH (20:45)
[2016-06-22] MEDS: BUDESONIDE 1 MG/2 ML NEBU INHALATION SCH (20:45)
--- NOTE | 2016-06-22 21:40 | P.GSCN ---
History of Present Illness Consult date: 06/22/16 History of present illness: The patient is a 71-year-old gentleman whom I've been asked to place a Wilder catheter because of the inability to accurately determine his urine output due to his huge abdominal girth probably due to ascites and is marked lower extremity edema. The nursing staff has failed to place a catheter due to severe penile and scrotal edema. The patient is in the hospital with probable abdominal ascites, congestive failure exacerbation of his COPD among other things. The patient apparently has a history of BPH and is on Flomax and finasteride by Dr. Ganesh bruner. Patient states over the last 48 hours his urine output is diminished. He has marked ascites marked abdominal girth and lower extremity and significant general total edema. I will attempt to place a catheter. Review of Systems - Constitutional Reports weight gain - Cardiovascular Reports dyspnea on exertion - Respiratory Reports dyspnea - Gastrointestinal Reports abdominal pain, Reports bloating - Genitourinary Reports as per HPI - Integumentary Reports rash, Reports sores Past Medical History Past Medical History: Atrial Fibrillation, Coronary Artery Disease (CAD), Heart Failure, Deep Vein Thrombosis (DVT), Hyperlipidemia, Hypertension, Liver Disease , Skin Disorder History of Any Multi-Drug Resistant Organisms: MRSA Year Discovered:: unknown MDRO Source:: unknown Past Surgical History: No Surgical Hx Reported Past Anesthesia/Blood Transfusion Reactions: No Reported Reaction Past Psychological History: No Psychological Hx Reported Smoking Status: Current every day smoker Past Alcohol Use History: Daily Past Drug Use History: None Reported - Past Family History Father History Unknown: Yes Mother History Unknown: Yes Brother(s) Additional Family Medical History / Comment(s): polio Medications and Allergies Home Medications Medication Instructions Recorded Confirmed Type Albuterol Nebulized [Ventolin 2.5 mg INHALATION RT-BID 06/21/16 06/21/16 History Nebulized] Albuterol Sulfate [Proair Hfa] 2 puff INHALATION RT-Q6H PRN 06/21/16 06/21/16 History Atorvastatin [Lipitor] 10 mg PO HS 06/21/16 06/21/16 History Furosemide [Lasix] 80 mg PO BID 06/21/16 06/21/16 History Metoprolol Tartrate [Lopressor] 50 mg PO Q12H 06/21/16 06/21/16 History Spironolactone 50 mg PO DAILY 06/21/16 06/21/16 History Allergies Allergy/AdvReac Type Severity Reaction Status Date / Time No Known Allergies Allergy Verified 06/21/16 22:31 Surgical - Exam Vital Signs Temp Pulse Resp BP Pulse Ox 96.7 F L 94 24 142/76 100 06/21/16 17:44 06/21/16 17:44 06/21/16 17:44 06/21/16 17:44 06/21/16 17:44 - General moderate distress, chronically ill, obese - ENT no hearing loss - Neck trachea midline - Respiratory The patient is short of breath - Abdomen Abdomen: non tender, distended - Genitourinary Penile and scrotal edema. I can feel the penis deep within the edema but I cannot expose the urethral meatus or glans penis. Edema is the same edema that is causing his lower extremities to be so swollen. normal penis with no external lesions - Neurologic normal coordination, normal sensation - Musculoskeletal normal posture - Psychiatric oriented to time, oriented to person, oriented to place Results - Labs 06/22/16 02:24 06/22/16 16:01 Abnormal Lab Results - Last 24 Hours (Table) 06/22/16 06/22/16 06/22/16 Range/Units 00:00 02:24 02:24 RBC (4.30-5.90) m/uL Hgb (13.0-17.5) gm/dL MCHC (31.0-37.0) g/dL RDW (11.5-15.5) % Neutrophils # (1.3-7.7) k/uL Lymphocytes # (1.0-4.8) k/uL PT (9.0-12.0) sec APTT 50.9 H (22.0-30.0) sec Sodium (137-145) mmol/L Potassium (3.5-5.1) mmol/L Chloride (98-107) mmol/L BUN (9-20) mg/dL Creatinine (0.66-1.25) mg/dL Alkaline Phosphatase (38-126) U/L Troponin I 0.043 H* (0.000-0.034) ng/mL Albumin (3.5-5.0) g/dL TSH (0.465-4.680) mIU/L Urine Protein Trace H (Negative) 06/22/16 06/22/16 06/22/16 Range/Units 02:24 02:24 08:20 RBC 4.13 L (4.30-5.90) m/uL Hgb 12.2 L (13.0-17.5) gm/dL MCHC 29.9 L (31.0-37.0) g/dL RDW 16.5 H (11.5-15.5) % Neutrophils # 9.0 H (1.3-7.7) k/uL Lymphocytes # 0.5 L (1.0-4.8) k/uL PT 14.4 H (9.0-12.0) sec APTT (22.0-30.0) sec Sodium (137-145) mmol/L Potassium (3.5-5.1) mmol/L Chloride (98-107) mmol/L BUN (9-20) mg/dL Creatinine (0.66-1.25) mg/dL Alkaline Phosphatase (38-126) U/L Troponin I 0.052 H* (0.000-0.034) ng/mL Albumin (3.5-5.0) g/dL TSH (0.465-4.680) mIU/L Urine Protein (Negative) 06/22/16 06/22/16 Range/Units 08:20 16:01 RBC (4.30-5.90) m/uL Hgb (13.0-17.5) gm/dL MCHC (31.0-37.0) g/dL RDW (11.5-15.5) % Neutrophils # (1.3-7.7) k/uL Lymphocytes # (1.0-4.8) k/uL PT (9.0-12.0) sec APTT (22.0-30.0) sec Sodium 134 L (137-145) mmol/L Potassium 6.1 H (3.5-5.1) mmol/L Chloride 94 L (98-107) mmol/L BUN 57 H (9-20) mg/dL Creatinine 1.40 H (0.66-1.25) mg/dL Alkaline Phosphatase 166 H (38-126) U/L Troponin I (0.000-0.034) ng/mL Albumin 3.4 L (3.5-5.0) g/dL TSH 11.000 H (0.465-4.680) mIU/L Urine Protein (Negative) Diabetes panel 06/22/16 Range/Units 16:01 Sodium 134 L (137-145) mmol/L Potassium 6.1 H (3.5-5.1) mmol/L Chloride 94 L (98-107) mmol/L Carbon Dioxide 25 (22-30) mmol/L BUN 57 H (9-20) mg/dL Creatinine 1.40 H (0.66-1.25) mg/dL Glucose 94 (74-99) mg/dL Calcium 9.2 (8.4-10.2) mg/dL AST 34 (17-59) U/L ALT 33 (21-72) U/L Alkaline Phosphatase 166 H (38-126) U/L Total Protein 6.7 (6.3-8.2) g/dL Albumin 3.4 L (3.5-5.0) g/dL Thyroid panel 06/22/16 Range/Units 08:20 TSH 11.000 H (0.465-4.680) mIU/L Calcium panel 06/22/16 Range/Units 16:01 Calcium 9.2 (8.4-10.2) mg/dL Albumin 3.4 L (3.5-5.0) g/dL Pituitary panel 06/22/16 06/22/16 Range/Units 08:20 16:01 Sodium 134 L (137-145) mmol/L Potassium 6.1 H (3.5-5.1) mmol/L Chloride 94 L (98-107) mmol/L Carbon Dioxide 25 (22-30) mmol/L BUN 57 H (9-20) mg/dL Creatinine 1.40 H (0.66-1.25) mg/dL Glucose 94 (74-99) mg/dL Calcium 9.2 (8.4-10.2) mg/dL TSH 11.000 H (0.465-4.680) mIU/L Adrenal panel 06/22/16 Range/Units 16:01 Sodium 134 L (137-145) mmol/L Potassium 6.1 H (3.5-5.1) mmol/L Chloride 94 L (98-107) mmol/L Carbon Dioxide 25 (22-30) mmol/L BUN 57 H (9-20) mg/dL Creatinine 1.40 H (0.66-1.25) mg/dL Glucose 94 (74-99) mg/dL Calcium 9.2 (8.4-10.2) mg/dL Total Bilirubin 1.3 (0.2-1.3) mg/dL AST 34 (17-59) U/L ALT 33 (21-72) U/L Alkaline Phosphatase 166 H (38-126) U/L Total Protein 6.7 (6.3-8.2) g/dL Albumin 3.4 L (3.5-5.0) g/dL Assessment and Plan Plan: Impression: Abdominal ascites, congestive heart failure, COPD, inability to pass a catheter, BPH Recommendations catheter placement and if necessary cystoscopy guided catheter placement
--- NOTE | 2016-06-22 21:43 | P.PCN ---
Date of Procedure: 06/22/16 Preoperative Diagnosis: Congestive heart failure ascites, inability to place catheter Postoperative Diagnosis: Same secondary to edema Procedure(s) Performed: Attempted catheter placement, cystoscopy guided catheter placement Surgeon: Tad Hu Indications for Procedure: The patient is in renal failure, has significant ascites and edema. He is on a Lasix drip and is not urinating. I been asked to place a catheter is nursing staff cannot Description of Procedure: The patient was prepped and draped sterilely. I attempted to manually pass a Wilder catheter into the urethra but failed to do so due to the marked scrotal and penile edema. I thus take the flexible cystoscope and passed through the foreskin till identify the glans penis. Unfortunately able to manipulate the scope into the glans penis into the fossa navicularis through the anterior urethra through the posterior urethra. The prostatic urethra is somewhat obstructing and then antrum of the bladder. The bladder does not appear to be too full. I then pass an 035 wire through the scope into the bladder. I removed the scope and attempted pass a 16-Spanish Wilder over the wire but this fails. I reintroduced the scope into the foreskin through the urethra into the bladder. I replaced the 035 wire and this time take a 14 coud-tip catheter over the 035 wire and able to pass it in the bladder. While doing this the patient urinates approximately 3 ounces around the scope. I then with the 14 coud-tip catheter in the bladder insufflate the balloon and irrigated with a Valarie syringe and it irrigates freely. The difficulty placing the catheter is due to the marked edema. I suspect the edema is due to both ascites and congestive failure. Urine output is minimal which is due to the marked third spacing that the patient has. Unfortunately does not apparently appear to be responding to the Lasix drip. The catheter can be removed in the medical staff deems it necessary. Further urologic care is required please feel free to contact us.
[2016-06-22] MEDS: ATORVASTATIN 10 MG TAB PO SCH (22:28)
[2016-06-22] MEDS: METOPROLOL TARTRATE 12.5 MG TAB PO SCH (22:28)
[2016-06-22] MEDS: SODIUM CHLORIDE 0.9% 1,000 ML IV SCH (22:45)
[2016-06-22] MEDS ORDERED: DEXTROSE 50%-WATER 50 ML SYRINGE IVP STA (22:46)
[2016-06-22] MEDS ORDERED: INSULIN REGULAR 100 UNIT/ML VIAL IV ONE (22:47)
[2016-06-22] MEDS: PIPERACILLIN-TAZOBACTAM 3.375 GM in DEXTROSE/WATER 1 50ML.BAG IVPB SCH (23:29)
[2016-06-22] MEDS: ALBUMIN HUMAN 5% 250 ML in EMPTY BAG 1 BAG IVPB SCH (23:47)
[2016-06-23] MEDS: PIPERACILLIN-TAZOBACTAM 3.375 GM in DEXTROSE/WATER 1 50ML.BAG IVPB SCH ×4 (00:30→23:57)
[2016-06-23] MEDS: IPRATROPIUM-ALBUTEROL 3 ML NEB INHALATION SCH ×6 (01:03→20:24)
[2016-06-23] MEDS: ALBUMIN HUMAN 5% 250 ML in EMPTY BAG 1 BAG IVPB SCH (01:13)
[2016-06-23] MEDS: VANCOMYCIN 1,750 MG in SODIUM CHLORIDE 0.9% 250 ML IVPB SCH ×3 (03:39→21:31)
[2016-06-23 06:03] LABS: Anisocytosis Slight; Basophils % (A) 0 %; CH 30.8; CHCM 32.3; Eosinophils # (A) 0.1 k/uL (0-0.7); Eosinophils % (A) 1 %; HCT 36.7 % (39.0-53.0); HGB 11.8 gm/dL (13.0-17.5); Hypochromasia Slight; Luc # (Auto) 0.14; Luc % (Auto) 2; Lymphocytes # (A) 0.4 k/uL (1.0-4.8); Lymphocytes % (A) 5 %; MCH 30.9 pg (25.0-35.0); MCHC 32.2 g/dL (31.0-37.0); MCV 96.1 fL (80.0-100.0); Macrocytosis Slight; Mean Platelet Volume 7.4; Monocytes # (A) 0.4 k/uL (0-1.0); Monocytes % (A) 5 %; Neutrophils % (A) 87 %; RBC 3.82 m/uL (4.30-5.90); RDW 16.5 % (11.5-15.5); WBC (Perox) 8.72
[2016-06-23 06:25] LABS: Calcium 9.1 mg/dL (8.4-10.2); Magnesium 2.3 mg/dL (1.6-2.3); Potassium 5.3 mmol/L (3.5-5.1); Total Bilirubin 1.3 mg/dL (0.2-1.3); Total Protein 6.7 g/dL (6.3-8.2)
--- NOTE | 2016-06-23 07:40 | XR ---
EXAMINATION TYPE: XR chest 1V DATE OF EXAM: 06/23/2016 7:23 AM COMPARISON: 06/21/2016 HISTORY: Pneumonia TECHNIQUE: Single frontal view of the chest is obtained. FINDINGS: Bilateral areas of consolidation and right-sided pleural effusion noted with global cardio megaly. Interstitium prominent. No pneumothorax. IMPRESSION: 1. Bilateral infiltrate and small right effusion stable. Underlying venous congestion not excluded.
[2016-06-23] MEDS: BUDESONIDE 1 MG/2 ML NEBU INHALATION SCH ×2 (07:48→20:24)
[2016-06-23] MEDS: FORMOTEROL FUMARATE 20 MCG/2 ML NEBU INHALATION SCH ×2 (07:48→20:24)
[2016-06-23] MEDS: FUROSEMIDE 250 MG in SODIUM CHLORIDE 0.9% 225 ML IVP SCH (08:26)
[2016-06-23] MEDS: NICOTINE 21MG/24HR PATCH TRANSDERM SCH (08:32)
[2016-06-23] MEDS: METOPROLOL TARTRATE 12.5 MG TAB PO SCH ×2 (08:32→21:24)
[2016-06-23 09:04] LABS: INR 1.5 (<1.1); Prothrombin Time 14.6 sec (9.0-12.0)
--- NOTE | 2016-06-23 09:27 | P.PN ---
Subjective Principal diagnosis: Ascites 71-year-old male with a history of alcohol liver cirrhosis portal hypertension and ascites. Paracentesis scheduled today at 2 PM. Wilder catheter inserted yesterday by urology with low urine output. IV Lasix. Ammonia 23. Objective - Vital Signs Vital signs: Vital Signs Temp 96.9 F L 06/23/16 08:25 Pulse 128 H 06/23/16 08:25 Resp 24 06/23/16 08:25 BP 113/62 06/23/16 08:25 Pulse Ox 93 L 06/23/16 08:25 Intake & Output 06/22/16 06/23/16 06/23/16 18:59 06:59 18:59 Intake Total 690 700 215.167 Output Total 275 Balance 690 425 215.167 Weight 111 kg Intake: IV 390 700 0.9 70 700 Furosemide 250 mg In 70 Sodium Chloride 0.9% 225 ml @ 10 MG/HR 10 mls/hr IVP .Q24H [facility] Rx#: [id number] Vancomycin 1,750 mg In 250 Sodium Chloride 0.9% 250 ml @ 125 mls/hr IVPB ONCE ONE Rx#:[id number] Intake, IV Titration 215.167 Amount Furosemide 250 mg In 215.167 Sodium Chloride 0.9% 225 ml @ 10 MG/HR 10 mls/hr IVP .Q24H [facility] Rx#: [id number] Oral 300 Output: Urine 275 Other: Voiding Method Urinal Indwelling Catheter - Exam General appearance: The patient is alert, oriented, mild shortness of breath. HET: Head is normocephalic and atraumatic. Pupils are equal and reactive. Oropharynx is clear without lesions. Neck: Supple without lymphadenopathy. Trachea midline. Heart: S1 S2. Regular rate and rhythm. Lungs: Managed bilaterally. Abdomen: Distended tense with ascites with bowel sounds sounds. No peritoneal signs. No palpable organomegaly or masses. Extremities: Diffuse scaly skin multiple hyperkeratosis areas on all extremities , face with telangiectasia. No asterixis. +2/+3 bilaterally lower extremity edema. Wilder with minimal Ashlyn clear urine. Neurological: No focal deficits. Strength and sensation are grossly intact. - Labs CBC & Chem 7: 06/23/16 05:51 06/23/16 05:51 Labs: Abnormal Lab Results - Last 24 Hours (Table) 06/22/16 06/22/16 06/22/16 Range/Units 02:24 08:20 08:20 RBC (4.30-5.90) m/uL Hgb (13.0-17.5) gm/dL Hct (39.0-53.0) % RDW (11.5-15.5) % Lymphocytes # (1.0-4.8) k/uL PT 14.4 H (9.0-12.0) sec Sodium (137-145) mmol/L Potassium (3.5-5.1) mmol/L Chloride (98-107) mmol/L BUN (9-20) mg/dL Creatinine (0.66-1.25) mg/dL Glucose (74-99) mg/dL Alkaline Phosphatase (38-126) U/L Troponin I 0.052 H* (0.000-0.034) ng/mL Albumin (3.5-5.0) g/dL TSH 11.000 H (0.465-4.680) mIU/L 06/22/16 06/23/16 06/23/16 Range/Units 16:01 05:51 05:51 RBC 3.82 L (4.30-5.90) m/uL Hgb 11.8 L (13.0-17.5) gm/dL Hct 36.7 L (39.0-53.0) % RDW 16.5 H (11.5-15.5) % Lymphocytes # 0.4 L (1.0-4.8) k/uL PT (9.0-12.0) sec Sodium 134 L 133 L (137-145) mmol/L Potassium 6.1 H 5.3 H (3.5-5.1) mmol/L Chloride 94 L 94 L (98-107) mmol/L BUN 57 H 54 H (9-20) mg/dL Creatinine 1.40 H 1.48 H (0.66-1.25) mg/dL Glucose 126 H (74-99) mg/dL Alkaline Phosphatase 166 H 155 H (38-126) U/L Troponin I (0.000-0.034) ng/mL Albumin 3.4 L (3.5-5.0) g/dL TSH (0.465-4.680) mIU/L 06/23/16 Range/Units 05:51 RBC (4.30-5.90) m/uL Hgb (13.0-17.5) gm/dL Hct (39.0-53.0) % RDW (11.5-15.5) % Lymphocytes # (1.0-4.8) k/uL PT 14.6 H (9.0-12.0) sec Sodium (137-145) mmol/L Potassium (3.5-5.1) mmol/L Chloride (98-107) mmol/L BUN (9-20) mg/dL Creatinine (0.66-1.25) mg/dL Glucose (74-99) mg/dL Alkaline Phosphatase (38-126) U/L Troponin I (0.000-0.034) ng/mL Albumin (3.5-5.0) g/dL TSH (0.465-4.680) mIU/L Assessment and Plan (1) Ascites Narrative/Plan: Acute on chronic Status: Chronic (2) Alcoholic liver disease Status: Chronic (3) Portal hypertension Status: Chronic (4) Coagulopathy Status: Chronic (5) ETOH abuse Status: Chronic (6) Atrial fibrillation with RVR Status: Acute (7) CHF (congestive heart failure) Status: Acute (8) MRSA (methicillin resistant Staphylococcus aureus) Narrative/Plan: History of MRSA Status: Chronic Plan: 1. IV diuretics. Recommend Aldactone 100 mg daily once potassium improves. 2. Therapeutic diagnostic paracentesis today. 3. We'll check hepatitis panel and AFP level. Supportive measures. Alcohol abstinence strongly advised. Assessment and plan of care discussed with Dr. Rodríguez.
--- NOTE | 2016-06-23 10:54 | ECHOF ---
Referral Reason:CHF MEASUREMENTS -------- HEIGHT: 182.9 cm WEIGHT: 110.7 kg BP: RVIDd: 4.1 cm (< 3.3) IVSd: 1.2 cm (0.6 - 1.1) LVIDd: 5.1 cm (3.9 - 5.3) LVPWd: 1.4 cm (0.6 - 1.1) IVSs: 1.3 cm LVIDs: 5.3 cm LVPWs: 1.0 cm LA Diam: 5.4 cm (2.7 - 3.8) LAESV Index (A-L): 82.10 ml/m Ao Diam: 4.3 cm (2.0 - 3.7) AV Cusp: 2.4 cm (1.5 - 2.6) LA Diam: 4.8 cm (2.7 - 3.8) MV EXCURSION: 15.228 mm (> 18.000) MV EF SLOPE: 75 mm/s (70 - 150) EPSS: 0.7 cm MV E Gustabo: 0.67 m/s MV DecT: 217 ms MV A Gustabo: 0.20 m/s MV E/A Ratio: 3.42 RAP: 15.00 mmHg RVSP: 25.84 mmHg FINDINGS -------- Undetermined rhythm. This was a technically adequate study. Left ventricular wall thickness is normal. There is severe global hypokinesis of LV . Overall left ventricular systolic function is severely impaired with, an EF between 20 - 25 %. The right ventricle is moderate to severely enlarged. The right ventricular septal wall is flattened in diastole and systole which is consistent with right ventricular volume and pressure overload. LA is severely dilated >40 ml/m2 The right atrium is moderately enlarged. There is mild aortic valve sclerosis. There is no evidence of aortic regurgitation. Mild mitral annular calcification present. Mild mitral regurgitation is present. Moderate tricuspid regurgitation present. There is no evidence of pulmonary hypertension. The right ventricular systolic pressure, as measured by Doppler, is 25.84mmHg. Trace/mild (physiologic) pulmonic regurgitation. The aortic root size is normal. There is a small pericardial effusion is located near the right atrium. CONCLUSIONS -------- 1. Left ventricular wall thickness is normal. 2. Mild mitral regurgitation is present. 3. Moderate tricuspid regurgitation present. 4. There is no evidence of pulmonary hypertension. 5. The right ventricular systolic pressure, as measured by Doppler, is 25.84mmHg. 6. Trace/mild (physiologic) pulmonic regurgitation. 7. The aortic root size is normal. 8. There is a small pericardial effusion is located near the right atrium. 9. There is severe global hypokinesis of LV . 10. Overall left ventricular systolic function is severely impaired with, an EF between 20 - 25 %. 11. The right ventricle is moderate to severely enlarged. 12. The right ventricular septal wall is flattened in diastole and systole which is consistent with right ventricular volume and pressure overload. 13. LA is severely dilated >40 ml/m2 14. The right atrium is moderately enlarged. 15. There is mild aortic valve sclerosis. 16. Mild mitral annular calcification present. EVS TECH: Calli Fairbanks RDCS
[2016-06-23] MEDS: SODIUM CHLORIDE 0.9% 1,000 ML IV SCH ×2 (11:11→19:00)
--- NOTE | 2016-06-23 11:23 | P.PN ---
Subjective The patient required a cystoscopic placement of a urethral catheter last night because of the need in assessing his urine output associated with his ascites, major edema, congestive heart failure. Due to the significant penile scrotal edema cystoscopy was needed place the Wilder catheter. It is draining. The urine output has not been great which is a medical issue that is being attended to. From a urologic standpoint nothing further needs to be done. The catheter can be removed when ever the medical staff feels they are ready to remove it. Objective - Vital Signs Vital signs: Vital Signs Temp 95.4 F L 06/23/16 11:20 Pulse 120 H 06/23/16 11:20 Resp 16 06/23/16 11:20 BP 94/63 06/23/16 11:20 Pulse Ox 93 L 06/23/16 11:20 Intake & Output 06/22/16 06/23/16 06/23/16 18:59 06:59 18:59 Intake Total 690 700 215.167 Output Total 275 Balance 690 425 215.167 Weight 111 kg Intake: IV 390 700 0.9 70 700 Furosemide 250 mg In 70 Sodium Chloride 0.9% 225 ml @ 10 MG/HR 10 mls/hr IVP .Q24H [facility] Rx#: [id number] Vancomycin 1,750 mg In 250 Sodium Chloride 0.9% 250 ml @ 125 mls/hr IVPB ONCE ONE Rx#:[id number] Intake, IV Titration 215.167 Amount Furosemide 250 mg In 215.167 Sodium Chloride 0.9% 225 ml @ 10 MG/HR 10 mls/hr IVP .Q24H [facility] Rx#: [id number] Oral 300 Output: Urine 275 Other: Voiding Method Urinal Indwelling Catheter Indwelling Catheter - Labs CBC & Chem 7: 06/23/16 05:51 06/23/16 05:51 Labs: Abnormal Lab Results - Last 24 Hours (Table) 06/22/16 06/22/16 06/22/16 Range/Units 02:24 08:20 16:01 RBC (4.30-5.90) m/uL Hgb (13.0-17.5) gm/dL Hct (39.0-53.0) % RDW (11.5-15.5) % Lymphocytes # (1.0-4.8) k/uL PT 14.4 H (9.0-12.0) sec Sodium 134 L (137-145) mmol/L Potassium 6.1 H (3.5-5.1) mmol/L Chloride 94 L (98-107) mmol/L BUN 57 H (9-20) mg/dL Creatinine 1.40 H (0.66-1.25) mg/dL Glucose (74-99) mg/dL Alkaline Phosphatase 166 H (38-126) U/L Albumin 3.4 L (3.5-5.0) g/dL TSH 11.000 H (0.465-4.680) mIU/L 06/23/16 06/23/16 06/23/16 Range/Units 05:51 05:51 05:51 RBC 3.82 L (4.30-5.90) m/uL Hgb 11.8 L (13.0-17.5) gm/dL Hct 36.7 L (39.0-53.0) % RDW 16.5 H (11.5-15.5) % Lymphocytes # 0.4 L (1.0-4.8) k/uL PT 14.6 H (9.0-12.0) sec Sodium 133 L (137-145) mmol/L Potassium 5.3 H (3.5-5.1) mmol/L Chloride 94 L (98-107) mmol/L BUN 54 H (9-20) mg/dL Creatinine 1.48 H (0.66-1.25) mg/dL Glucose 126 H (74-99) mg/dL Alkaline Phosphatase 155 H (38-126) U/L Albumin (3.5-5.0) g/dL TSH (0.465-4.680) mIU/L
--- NOTE | 2016-06-23 11:27 | P.PN ---
Subjective This is a 71-year-old gentleman who follows with Dr. Andersen as his primary care physician. He has a past medical history of hyperlipidemia, hypertension, atrial fibrillation, congestive heart failure, DVT and alcoholic liver disease. He has had paracentesis in the past, most recently 5-6 months ago at [facility]. He also has a 50 pack per day smoking history and he only utilizes pro-air in the outpatient setting. He is oxygen dependent at home, usually 3-4 L. The patient appears chronically ill. He has significant lower extremity edema with weeping and redness with suspected cellulitis. He has significant abdominal distention. He is also found to be in atrial fibrillation with a rapid ventricular response. His proBNP level was greater than 36,000, TSH 11.0. His chest x-ray does reveal a right basilar pleural effusion with associated atelectasis and possible infiltrate. Abdominal ultrasound is pending. He may require paracentesis on this admission. Presently he is seen in the selective care unit. He is awake and alert and slight respiratory distress. He is maintaining O2 saturations in the low 90s on 10 L of high flow nasal cannula. His been initiated on Lasix drip currently at 10 mg per hour. He is also on Aldactone. We will continue with bronchodilators and antibiotics in the form of vancomycin. I would also go ahead and add Zosyn in conjunction with vancomycin regarding the right lower lobe pulmonary infiltrates/pneumonia. On 06/23/2016, the patient is being seen in follow-up. He is still on IV Lasix drip at 10 mg an hour. His urine output is however rather slow and is producing approximately 2 70 mL over the past 12 hours. As such as urine output is somewhat limited. His abdomen remains quite distended and he will be undergoing a therapeutic paracentesis this morning. This will be done by interventional radiology. The patient also has a right lower lobe consolidation for which she is still on a combination of Zosyn and vancomycin. He has a congested cough. No leukocytosis. No fever. His renal function is impaired with a creatinine of 1.48. Potassium level is at 5.3 and the patient is still on Aldactone. Hemoglobin is 11.8. Objective - Vital Signs Vital signs: Vital Signs Temp 95.4 F L 06/23/16 11:20 Pulse 120 H 06/23/16 11:20 Resp 16 06/23/16 11:20 BP 94/63 06/23/16 11:20 Pulse Ox 93 L 06/23/16 11:20 Intake & Output 06/22/16 06/23/16 06/23/16 18:59 06:59 18:59 Intake Total 690 700 215.167 Output Total 275 Balance 690 425 215.167 Weight 111 kg Intake: IV 390 700 0.9 70 700 Furosemide 250 mg In 70 Sodium Chloride 0.9% 225 ml @ 10 MG/HR 10 mls/hr IVP .Q24H [facility] Rx#: [id number] Vancomycin 1,750 mg In 250 Sodium Chloride 0.9% 250 ml @ 125 mls/hr IVPB ONCE ONE Rx#:[id number] Intake, IV Titration 215.167 Amount Furosemide 250 mg In 215.167 Sodium Chloride 0.9% 225 ml @ 10 MG/HR 10 mls/hr IVP .Q24H [facility] Rx#: [id number] Oral 300 Output: Urine 275 Other: Voiding Method Urinal Indwelling Catheter Indwelling Catheter - Exam GENERAL EXAM: Alert, comfortable at rest in no acute distress. HEAD: Normocephalic. EYES: Normal reaction of pupils, equal size. NOSE: Clear with pink turbinates. THROAT: No erythema or exudates. NECK: No masses, positive JVD. CHEST: No chest wall deformity. LUNGS: Equal air entry with crackles in the bilateral posterior bases, more so on the right. CVS: S1 and S2 normal with no audible murmurs, regular rhythm. ABDOMEN: Distended, positive fluid wave. Normal bowel sounds, no guarding or rigidity. Extremities: There is 2-3+ lower extremity peripheral edema. Redness and changes of chronic venous stasis. Peripheral pulses are intact. - Labs CBC & Chem 7: 06/23/16 05:51 06/23/16 05:51 Labs: Abnormal Lab Results - Last 24 Hours (Table) 06/22/16 06/22/16 06/22/16 Range/Units 02:24 08:20 16:01 RBC (4.30-5.90) m/uL Hgb (13.0-17.5) gm/dL Hct (39.0-53.0) % RDW (11.5-15.5) % Lymphocytes # (1.0-4.8) k/uL PT 14.4 H (9.0-12.0) sec Sodium 134 L (137-145) mmol/L Potassium 6.1 H (3.5-5.1) mmol/L Chloride 94 L (98-107) mmol/L BUN 57 H (9-20) mg/dL Creatinine 1.40 H (0.66-1.25) mg/dL Glucose (74-99) mg/dL Alkaline Phosphatase 166 H (38-126) U/L Albumin 3.4 L (3.5-5.0) g/dL TSH 11.000 H (0.465-4.680) mIU/L 06/23/16 06/23/16 06/23/16 Range/Units 05:51 05:51 05:51 RBC 3.82 L (4.30-5.90) m/uL Hgb 11.8 L (13.0-17.5) gm/dL Hct 36.7 L (39.0-53.0) % RDW 16.5 H (11.5-15.5) % Lymphocytes # 0.4 L (1.0-4.8) k/uL PT 14.6 H (9.0-12.0) sec Sodium 133 L (137-145) mmol/L Potassium 5.3 H (3.5-5.1) mmol/L Chloride 94 L (98-107) mmol/L BUN 54 H (9-20) mg/dL Creatinine 1.48 H (0.66-1.25) mg/dL Glucose 126 H (74-99) mg/dL Alkaline Phosphatase 155 H (38-126) U/L Albumin (3.5-5.0) g/dL TSH (0.465-4.680) mIU/L Assessment and Plan Plan: Plan: Impression: #1 Dyspnea, multifactorial in a patient found to have significant abdominal ascites, acute exacerbation of chronic obstructive pulmonary disease complicated by right lower lobe atelectasis/infiltrate, acute exacerbation of suspected diastolic congestive heart failure, atrial fibrillation with rapid ventricular response. The patient is awaiting a diagnostic and neuropathic paracentesis this morning. Meanwhile he is right lung pneumonia is also being treated with a combination of Zosyn and vancomycin. There is persistent infiltration of the right lung base along with possibly development of a small right-sided pleural effusion. #2 Acute exacerbation of suspected chronic obstructive pulmonary disease. #3 renal failure with a creatinine of 1.4. Urine output is marginal despite aggressive diuresis with Lasix drip at 10 mg an hour. He is also on Aldactone. #4 Basilar pleural effusion with associated atelectasis/infiltrate. #5 ascites secondary to alcoholic liver disease. #6 Daily alcohol use. #7 Atrial fibrillation with rapid ventricular response, not anticoagulated in the outpatient setting. #8 Chronic lower extremity edema or #9 Acute on chronic suspected diastolic versus systolic congestive heart failure. #10 Hyperlipidemia. #11 History of DVT. #12 Hyperlipidemia. #13 Coronary artery disease. #14 Poor overall functional performance secondary to the above-mentioned multiple comorbidities. #15 nicotine addiction/smoking is the patient carries more than [id number] smoking history. Plan The patient shortness of breath is multifactorial. He is an acute COPD exacerbation and he has a right lower lobe pneumonia. Nevertheless his abdomen is quite tense due to massive ascites and fluid overload. He will benefit from immediate large volume paracentesis was done by interventional radiology. Continue same antibiotic coverage. Continue the diuretics. Monitor renal output. We'll continue to follow. Repeat chest x-ray in a.m.
--- NOTE | 2016-06-23 12:01 | P.PN ---
Subjective Principal diagnosis: Congestive heart failure This is a 71-year-old gentleman with known history of EtOH abuse, nicotine dependence, ascites, liver failure, hypertension, hyperlipidemia, COPD with home O2 use,, he presents to the hospital with symptoms of progressive shortness of breath as well as significant fluid overload abdominally. Patient has undergone prior paracentesis in the past at [facility]. Cardiology consultation was requested because of a possible congestive cardiac failure. Patient also has history of chronic persistent atrial fibrillation, EKG on admission shows atrial fibrillation with rapid ventricular response and a right bundle branch block pattern. He is not on anticoagulation at home. Heparin was placed on hold yesterday because the patient was going to be scheduled to undergo a paracentesis, this will be performed this afternoon. He was initiated on IV Lasix drip yesterday, putting out to moderate amounts of urine. Creatinine today 1.4, same as yesterday. Overall the patient does state that he is feeling mildly better today. Objective - Vital Signs Vital signs: Vital Signs Temp 95.4 F L 06/23/16 11:20 Pulse 110 H 06/23/16 11:42 Resp 16 06/23/16 11:20 BP 94/63 06/23/16 11:20 Pulse Ox 93 L 06/23/16 11:20 Intake & Output 06/22/16 06/23/16 06/23/16 18:59 06:59 18:59 Intake Total 690 700 215.167 Output Total 275 Balance 690 425 215.167 Weight 111 kg Intake: IV 390 700 0.9 70 700 Furosemide 250 mg In 70 Sodium Chloride 0.9% 225 ml @ 10 MG/HR 10 mls/hr IVP .Q24H [facility] Rx#: [id number] Vancomycin 1,750 mg In 250 Sodium Chloride 0.9% 250 ml @ 125 mls/hr IVPB ONCE ONE Rx#:[id number] Intake, IV Titration 215.167 Amount Furosemide 250 mg In 215.167 Sodium Chloride 0.9% 225 ml @ 10 MG/HR 10 mls/hr IVP .Q24H [facility] Rx#: [id number] Oral 300 Output: Urine 275 Other: Voiding Method Urinal Indwelling Catheter Indwelling Catheter - Exam PHYSICAL EXAMINATION: HEENT: Head is atraumatic, normocephalic. Pupils equal, round. Neck is supple. There is elevated jugular venous pressure. HEART EXAMINATION: Heart S1 and S2 irregular irregular a systolic murmur is heard. CHEST EXAMINATION: Lungs reveal scattered coarse wheezes throughout with diminished air entry to bilateral bases. ABDOMEN: Distended, firm, bowel sounds heard. . EXTREMITIES: 1+ peripheral pulses with 2+ evidence of peripheral edema and no calf tenderness noted. Evidence of venous stasis and chronic ulcerations bilaterally. NEUROLOGIC patient is awake, alert and oriented -3. . - Labs CBC & Chem 7: 06/23/16 05:51 06/23/16 05:51 Labs: Abnormal Lab Results - Last 24 Hours (Table) 06/22/16 06/22/16 06/23/16 Range/Units 02:24 16:01 05:51 RBC 3.82 L (4.30-5.90) m/uL Hgb 11.8 L (13.0-17.5) gm/dL Hct 36.7 L (39.0-53.0) % RDW 16.5 H (11.5-15.5) % Lymphocytes # 0.4 L (1.0-4.8) k/uL PT 14.4 H (9.0-12.0) sec Sodium 134 L (137-145) mmol/L Potassium 6.1 H (3.5-5.1) mmol/L Chloride 94 L (98-107) mmol/L BUN 57 H (9-20) mg/dL Creatinine 1.40 H (0.66-1.25) mg/dL Glucose (74-99) mg/dL Alkaline Phosphatase 166 H (38-126) U/L Albumin 3.4 L (3.5-5.0) g/dL 06/23/16 06/23/16 Range/Units 05:51 05:51 RBC (4.30-5.90) m/uL Hgb (13.0-17.5) gm/dL Hct (39.0-53.0) % RDW (11.5-15.5) % Lymphocytes # (1.0-4.8) k/uL PT 14.6 H (9.0-12.0) sec Sodium 133 L (137-145) mmol/L Potassium 5.3 H (3.5-5.1) mmol/L Chloride 94 L (98-107) mmol/L BUN 54 H (9-20) mg/dL Creatinine 1.48 H (0.66-1.25) mg/dL Glucose 126 H (74-99) mg/dL Alkaline Phosphatase 155 H (38-126) U/L Albumin (3.5-5.0) g/dL Assessment and Plan Plan: Assessment and plan #1 systolic congestive cardiac failure, acute on chronic. Patient is on IV Lasix drip. #2 ascites, patient has history of liver failure with prior paracentesis in the past. #3 hypertension #4 COPD # 5 hyperlipidemia #6 chronic persistent atrial fibrillation, not on anticoagulation at home. Currently on IV heparin. #7 nicotine dependence #8 EtOH abuse #9 hyperkalemia #10 troponin abnormality, not consistent with acute coronary syndrome, likely secondary to oxygen supply and demand mismatch. Plan Echo cardiac gram with Doppler study was performed which revealed an ejection fraction of 20-25%. Severely dilated left atrium. Severe global hypokinesia. Small pericardial effusion noted. Moderate tricuspid regurgitation. From cardiology's perspective, we will recommend to continue IV Lasix drip, metoprolol tartrate milligrams one tablet by mouth twice a day, decrease IV fluids to KVO. Once the patient's potassium and creatinine normalized, consider the addition of DANIELA inhibitor and Aldactone. DNP note has been reviewed, I agree with a documented findings and plan of care. Patient was seen and examined.
[2016-06-23 14:09] LABS: Hepatitis B Surface Ag Index 0.05
[2016-06-23 14:13] LABS: Hepatitis B Core IgM Index 0.01
[2016-06-23 14:25] LABS: Hepatitis C Virus IgG Index 0.07
[2016-06-23 14:26] LABS: Hepatitis C Virus IgG Ab Negative (Negative)
--- NOTE | 2016-06-23 15:34 | US ---
Therapeutic and diagnostic paracentesis. CLINICAL HISTORY: Ascites The procedure was discussed with the patient. The risks, complications, benefits, and alternatives we re discussed and any questions were answered. Informed consent was obtained. The patient was placed s upine on the ultrasound table and prepped and draped in the usual sterile fashion. All elements of maximal barrier technique were utilized. Under ultrasound guidance, access into the left lower quadrant was obtained, via the paracentesis catheter system and direct ultrasound guidance . Approximately 12 liters of straw-colored fluid was removed. The patient was stable throughout the pro cedure and remained stable upon discharge from Department of Radiology. Sample sent to pathology for analysis. IMPRESSION: Successful paracentesis under ultrasound guidance.
[2016-06-23] MEDS: ALBUMIN HUMAN 25% 50 ML in EMPTY BAG 1 BAG IVPB SCH ×2 (16:10→16:26)
--- NOTE | 2016-06-23 17:20 | P.NPCON ---
History of Present Illness - Reason for Consult Consult date: 06/23/16 acute renal failure - Chief Complaint Acute kidney injury with liver cirrhosis and severe cardiomyopathy - History of Present Illness This is a 71-year-old male known with liver cirrhosis, alcoholism, severe cardio myopathy ejection fraction 20% and is admitted with sinusitis. He just had 12 L of fluid taken off from his ascites. He seen because of acute kidney injury Patient denies any nonsteroidal use, antibiotics, history of prostatism. No history of nausea vomiting diarrhea abdominal pain fever chills cough shortness of breath dizziness. No changes in medications recently. He has had done every 3 months. Supposedly last time he was supposed to get it done but did not until last week on 06/18/2016. He had it done again today and 12 L were taken off. Is known with possible history of atrial fibrillation coronary artery disease, cardio myopathy with poor ejection fraction of 20%. No history of GI bleeding No history of seizures syncope. No history of falls. Past Medical History Past Medical History: Atrial Fibrillation, Coronary Artery Disease (CAD), Heart Failure, Deep Vein Thrombosis (DVT), Hyperlipidemia, Hypertension, Liver Disease , Skin Disorder History of Any Multi-Drug Resistant Organisms: MRSA Date of last positivie culture/infection: unknown MDRO Source:: unknown Past Surgical History: No Surgical Hx Reported Past Anesthesia/Blood Transfusion Reactions: No Reported Reaction Past Psychological History: No Psychological Hx Reported Smoking Status: Current every day smoker Past Alcohol Use History: Daily Past Drug Use History: None Reported - Past Family History Father History Unknown: Yes Mother History Unknown: Yes Brother(s) Additional Family Medical History / Comment(s): polio Medications and Allergies Home Medications Medication Instructions Recorded Confirmed Type Albuterol Nebulized [Ventolin 2.5 mg INHALATION RT-BID 06/21/16 06/21/16 History Nebulized] Albuterol Sulfate [Proair Hfa] 2 puff INHALATION RT-Q6H PRN 06/21/16 06/21/16 History Atorvastatin [Lipitor] 10 mg PO HS 06/21/16 06/21/16 History Furosemide [Lasix] 80 mg PO BID 06/21/16 06/21/16 History Metoprolol Tartrate [Lopressor] 50 mg PO Q12H 06/21/16 06/21/16 History Spironolactone 50 mg PO DAILY 06/21/16 06/21/16 History Allergies Allergy/AdvReac Type Severity Reaction Status Date / Time No Known Allergies Allergy Verified 06/21/16 22:31 Physical Exam Vitals: Vital Signs Temp Pulse Pulse Resp BP BP Pulse Ox 06/23/16 16:30 124 H 20 93/72 95 06/23/16 16:25 78 06/23/16 16:15 145 H 107/73 06/23/16 16:14 90 06/23/16 16:00 129 H 20 90/68 94 L 06/23/16 15:45 96.8 F L 126 H 16 100/73 99 06/23/16 15:18 130 H 16 84/56 96 06/23/16 14:35 130 H 16 80/58 93 L 06/23/16 13:35 57 L 16 129/74 92 L 06/23/16 11:42 110 H 06/23/16 11:30 110 H 06/23/16 11:20 95.4 F L 120 H 16 94/63 93 L 06/23/16 08:25 96.9 F L 128 H 24 113/62 93 L 06/23/16 07:59 120 H 06/23/16 07:49 120 H 06/23/16 04:00 97 F L 105 H 18 125/70 92 L 06/23/16 00:00 97 F L 100 18 92/54 91 L 06/22/16 21:00 102 H 06/22/16 20:49 102 H 06/22/16 20:48 100 06/22/16 20:40 100 06/22/16 20:00 96.9 F L 74 20 110/53 90 L Intake and Output 06/23/16 06/23/16 06/23/16 06:59 14:59 22:59 Intake Total 700 415.167 930 Output Total 275 91830 Balance 425 169.597 -70944 Intake: IV 700 880 0.9 700 800 Furosemide 250 mg In 80 Sodium Chloride 0.9% 225 ml @ 10 MG/HR 10 mls/hr IVP .Q24H [facility] Rx#: [id number] Intake, IV Titration 215.167 50 Amount Furosemide 250 mg In 215.167 Sodium Chloride 0.9% 225 ml @ 10 MG/HR 10 mls/hr IVP .Q24H [facility] Rx#: [id number] Piperacillin-Tazobactam 3 50 .375 gm In Dextrose/Water 1 50ml.bag @ 12.5 mls/hr IVPB Q8HR [facility] Rx#: [id number] Oral 200 Output: Urine 275 425 Other [id number] Other: Voiding Method Indwelling Catheter Indwelling Catheter Weight 111 kg On examination is awake alert oriented. No asterixis, but looks ill. HEENT exam no JVP neck is supple no facial asymmetry Lungs are clear to auscultation percussion good air entry bilaterally. Heart sounds unremarkable no murmur rub gallop. Abdomen soft nontender no organomegaly, mild ascites. No masses. No rebound tenderness. Extremity exam reveals chronic scaly skin with mild edema. Neurologically awake alert oriented no asterixis. No focal Motor deficit Results - Lab Results Most recent lab results Calcium 9.1 mg/dL (8.4-10.2) 06/23/16 05:51 Phosphorus 4.0 mg/dL (2.5-4.5) 06/21/16 18:08 Magnesium 2.3 mg/dL (1.6-2.3) 06/23/16 05:51 06/23/16 05:51 06/23/16 05:51 Assessment and Plan Plan: Impression. 1. Acute kidney injury secondary possible compartment syndrome with tight ascites. Creatinine 1.27 on 06/21/2016, went up yesterday up to 1.4 and further up to 1.48 this morning. Cannot rule out hepatorenal syndrome. Expect renal recovery post tap. 2. Possible chronic kidney disease but no previous creatinines available etiology could be chronic liver disease. 3. Severe ascites status post paracentesis of 12 L. Vital signs are stable. 4. History of liver cirrhosis pulse is 1 year with any drinking although patient denies it relatives confirmed. I spoke to 2 [id number]. Bilirubin is 1.3 AST and AST are normal PT/INR is 1.5 and PTT is 50.9. Albumin is 3.5 and ammonia is 23. 5. Mild hyponatremia secondary to chronic liver disease and acute kidney injury. 6. Hyperkalemia with potassium of 6.1, improved to 5.3 this morning. Etiology is Aldactone. Recommendation. 1. Maintain IV fluids normal saline at 100 mL an hour. I have given him IV albumin last night and immediately. Today's 25 g each. 2. Watch potassium., 3. 2 g potassium diet. 4. Discontinue Aldactone. 5. Hold off any diuretics for right now. 6. He may need hepatorenal syndrome cocktail if she does not respond by tomorrow.
[2016-06-23] MEDS ORDERED: VANCOMYCIN TROUGH DUE 1 EACH MISC MISCELLANE ONE (19:00)
[2016-06-23] MEDS: ATORVASTATIN 10 MG TAB PO SCH (21:24)
[2016-06-23 21:34] LABS: RBC, Body Fluid 325 /uL
--- NOTE | 2016-06-23 21:46 | PN ---
DATE OF SERVICE: 06/23/2016 PRESENTING COMPLAINT: Short of breath, swelling. INTERVAL HISTORY: This is a patient with multiple problems including possible cirrhosis alcohol induced, severe ascites, had 2 liters of fluid removed today. I did speak with two sister in laws at the bedside. He was drinking heavy alcohol in the past. At least 6 to 8 beers a day. Urine output has not been much. Review of systems done for constitutional, cardiovascular, GI, pulmonary; relevant findings as above. Current medications are reviewed and include IV Lasix drip and IV Zosyn and vancomycin. On examination, temperature 96.8, pulse 120. Respiratory rate 16, blood pressure 100/73, pulse ox 99% on 10 liters. GENERAL APPEARANCE: Propped up in bed, short of breath with cyanosis. EYES: Pupils equal. Conjunctivae normal. NECK: JVD raised. Mass not palpable. RESPIRATORY: Effort increased. LUNGS: Decreased breath sounds. Prolonged expiration. CARDIOVASCULAR: Heart sounds irregular. Edema present. ABDOMEN: Distended. Liver and spleen not palpable. PSYCHIATRY: Alert and oriented x3. Mood and affect anxious. Dermatological: Diffuse cellulitis both upper and lower extremities. INVESTIGATIONS: White count 8, hemoglobin 11.8, potassium 5.3, BUN 54, creatinine 1.48, hepatitis screen is negative. Two-D echocardiogram shows moderate tricuspid regurgitation, small pericardial effusion, severe global hypokinesia; ejection fraction 20% to 25%. Abdominal ultrasound showed moderate ascites. ASSESSMENT: 1. Acute on chronic congestive heart failure exacerbation from systolic dysfunction, severe slow to respond. Could be underlying alcoholic cardiomyopathy, ischemia cannot be ruled out. 2. Acute respiratory failure, hypoxic, present on admission, from underlying chronic obstructive pulmonary disease, congestive heart failure. 3. Acute chronic obstructive pulmonary disease exacerbation in a smoker. 4. Chronic nicotine dependence. Patient is a smoker. 5. Persistent atrial fibrillation with rapid ventricular rate uncontrolled. 6. Possible acute renal failure, could be prerenal with chronic component. 7. Chronic alcoholism. 8. Troponin leak due to hemodynamic mismatch. 9. Acute severe cellulitis of both upper and lower extremity. 10. Dense ascites status post paracentesis 12 liters was removed. 11. Possible acute cor pulmonale. 12. Suspect alcoholic liver disease/cirrhosis. 13. Hyperkalemia could be possibly from Aldactone. PLAN: Aldactone was discontinued. Diuresis was to continue. Continue supportive care. Care was discussed with the patient and family members at the bedside. Silvadene will be applied to the skin. Overall prognosis remains guarded. Continue with antibiotics.
[2016-06-24] MEDS: SODIUM CHLORIDE 0.9% 1,000 ML IV SCH (04:52)
[2016-06-24 06:40] LABS: Anisocytosis Slight; Basophils # (A) 0.1 k/uL (0-0.2); Basophils % (A) 1 %; CH 30.3; CHCM 30.7; Eosinophils # (A) 0.1 k/uL (0-0.7); Eosinophils % (A) 1 %; HCT 41.3 % (39.0-53.0); HDW 3.24; HGB 12.7 gm/dL (13.0-17.5); Hypochromasia Marked; Luc # (Auto) 0.23; Luc % (Auto) 2; Lymphocytes # (A) 0.4 k/uL (1.0-4.8); Lymphocytes % (A) 4 %; MCH 30.6 pg (25.0-35.0); MCHC 30.7 g/dL (31.0-37.0); MCV 99.5 fL (80.0-100.0); Macrocytosis Slight; Mean Platelet Volume 7.7; Monocytes # (A) 0.8 k/uL (0-1.0); Monocytes % (A) 7 %; Neutrophils # (A) 9.3 k/uL (1.3-7.7); Neutrophils % (A) 85 %; RBC 4.15 m/uL (4.30-5.90); RDW 16.4 % (11.5-15.5); WBC 10.9 k/uL (3.8-10.6); WBC (Perox) 11.27
[2016-06-24] MEDS: FORMOTEROL FUMARATE 20 MCG/2 ML NEBU INHALATION SCH ×2 (07:55→19:36)
[2016-06-24] MEDS: IPRATROPIUM-ALBUTEROL 3 ML NEB INHALATION SCH ×4 (07:55→19:36)
[2016-06-24] MEDS: BUDESONIDE 1 MG/2 ML NEBU INHALATION SCH ×2 (07:55→19:37)
[2016-06-24 08:25] LABS: Anion Gap 16 mmol/L; Blood Urea Nitrogen 51 mg/dL (9-20); Calcium 8.6 mg/dL (8.4-10.2); Carbon Dioxide 23 mmol/L (22-30); Chloride 97 mmol/L (98-107); Glucose 92 mg/dL (74-99); Non-African American GFR(MDRD) 51 (>60 ml/min/1.73 sqM); Sodium 136 mmol/L (137-145)
[2016-06-24] MEDS: PIPERACILLIN-TAZOBACTAM 3.375 GM in DEXTROSE/WATER 1 50ML.BAG IVPB SCH ×2 (08:29→15:49)
[2016-06-24] MEDS: METOPROLOL TARTRATE 12.5 MG TAB PO SCH ×2 (08:29→20:56)
[2016-06-24] MEDS: FUROSEMIDE 250 MG in SODIUM CHLORIDE 0.9% 225 ML IVP SCH (08:29)
[2016-06-24] MEDS: NICOTINE 21MG/24HR PATCH TRANSDERM SCH (08:29)
--- NOTE | 2016-06-24 08:29 | XR ---
EXAMINATION TYPE: XR chest 1V portable DATE OF EXAM: 06/24/2016 7:27 AM COMPARISON: Prior chest x-ray 23 June 2016 HISTORY: Effusion, cardiomegaly, infiltrates TECHNIQUE: Single frontal view of the chest is obtained. FINDINGS: The heart remains markedly enlarged. Abnormal increased density present at the lung bases, there is blunting of the right costophrenic angle. Central vascularity is prominent. Some improvemen t in aeration is suspected. There is no pneumothorax. IMPRESSION: Suspect improvement in volume status. Marked cardiomegaly. There may be chronic pleural r eaction, pleural effusions, basilar atelectasis versus edema or pneumonia. Follow-up recommended.
[2016-06-24 08:35] LABS: Potassium 4.8 mmol/L (3.5-5.1)
--- NOTE | 2016-06-24 08:48 | P.PN ---
Subjective Principal diagnosis: Ascites 71-year-old male with a history of alcohol liver cirrhosis portal hypertension and ascites. Status post Paracentesis yesterday with 12 L removal. Received 25 g of albumin yesterday. Increased urine output. Morning labs pending. Receiving IV Lasix. Objective - Vital Signs Vital signs: Vital Signs Temp 97 F L 06/24/16 08:26 Pulse 115 H 06/24/16 08:26 Resp 18 06/24/16 08:26 BP 100/65 06/24/16 08:26 Pulse Ox 97 06/24/16 08:26 Intake & Output 06/23/16 06/24/16 06/24/16 18:59 06:59 18:59 Intake Total 8739.601 4273 Output Total 68226 2000 Balance -28513.833 310 Weight 105.5 kg Intake: IV 880 2160 0.9 800 1600 Albumin Human 25% 50 ml 100 In Empty Bag 1 bag @ 200 mls/hr IVPB Q15M [facility] Rx#: [id number] Furosemide 250 mg In 80 160 Sodium Chloride 0.9% 225 ml @ 10 MG/HR 10 mls/hr IVP .Q24H [facility] Rx#: [id number] Piperacillin-Tazobactam 3 50 .375 gm In Dextrose/Water 1 50ml.bag @ 12.5 mls/hr IVPB Q8HR [facility] Rx#: [id number] Vancomycin 1,750 mg In 250 Sodium Chloride 0.9% 250 ml @ 125 mls/hr IVPB Q16H [facility] Rx#:[id number] Intake, IV Titration 265.167 Amount Furosemide 250 mg In 215.167 Sodium Chloride 0.9% 225 ml @ 10 MG/HR 10 mls/hr IVP .Q24H [facility] Rx#: [id number] Piperacillin-Tazobactam 3 50 .375 gm In Dextrose/Water 1 50ml.bag @ 12.5 mls/hr IVPB Q8HR [facility] Rx#: [id number] Oral 200 150 Output: Urine 425 2000 Other [id number] Other: Voiding Method Indwelling Catheter Indwelling Catheter Indwelling Catheter - Exam General appearance: The patient is alert, oriented, mild shortness of breath. HET: Head is normocephalic and atraumatic. Pupils are equal and reactive. Oropharynx is clear without lesions. Neck: Supple without lymphadenopathy. Trachea midline. Heart: S1 S2. Regular rate and rhythm. Lungs: Managed bilaterally. Abdomen: Less distended with mild ascites much improved from yesterday's exam bowel sounds present. No peritoneal signs. No palpable organomegaly or masses. Extremities: Diffuse scaly skin multiple hyperkeratosis areas on all extremities , face with telangiectasia. No asterixis. +2 bilaterally lower extremity edema. Wilder with morelia clear urine. Neurological: No focal deficits. Strength and sensation are grossly intact. - Labs CBC & Chem 7: 06/24/16 05:45 06/24/16 05:45 Labs: Abnormal Lab Results - Last 24 Hours (Table) 06/23/16 06/24/16 06/24/16 Range/Units 05:51 05:45 05:45 WBC 10.9 H (3.8-10.6) k/uL RBC 4.15 L (4.30-5.90) m/uL Hgb 12.7 L (13.0-17.5) gm/dL MCHC 30.7 L (31.0-37.0) g/dL RDW 16.4 H (11.5-15.5) % Neutrophils # 9.3 H (1.3-7.7) k/uL Lymphocytes # 0.4 L (1.0-4.8) k/uL PT 14.6 H (9.0-12.0) sec Sodium 136 L (137-145) mmol/L Chloride 97 L (98-107) mmol/L BUN 51 H (9-20) mg/dL Creatinine 1.39 H (0.66-1.25) mg/dL Microbiology - Last 24 Hours (Table) 06/23/16 13:45 Gram Stain - Preliminary Ascites Fluid Body Fluid Culture - Preliminary Assessment and Plan (1) Ascites Narrative/Plan: Acute on chronic status post therapeutic diagnostic paracentesis Status: Chronic (2) Alcoholic liver disease Status: Chronic (3) Portal hypertension Status: Chronic (4) Coagulopathy Status: Chronic (5) ETOH abuse Status: Chronic (6) Atrial fibrillation with RVR Status: Acute (7) CHF (congestive heart failure) Status: Acute (8) MRSA (methicillin resistant Staphylococcus aureus) Narrative/Plan: History of MRSA Status: Chronic Plan: 1. Continue diuretics per nephrology recommendations. 2. Low-salt diet. 3. Hepatitis panel and AFP level reviewed and within normal limits. Supportive measures. Alcohol abstinence strongly advised. Assessment and plan of care discussed with Dr. Rodríguez.
--- NOTE | 2016-06-24 09:50 | P.PN ---
Rosamaria Becerra is a 71-year-old male with acute kidney injury secondary to likely compartment syndrome. He had ascites have yesterday 12 L were taken off dated 06/23/2016. His urine output picked up. He was given albumin 25 g twice once before and once after the tap. 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 He is on IV fluids as well as Lasix drip. He was started on IV fluids because of the risk of hepatorenal syndrome with large volume tap. Additionally he has possible pneumonia on the right lower lung zone. This morning is awake alert supposedly eating and feeling well somewhat sleepy. Denies any complaints Objective - Vital Signs Vital signs: Vital Signs Temp 9. 7 F L 06/24/16 08:26 Pulse 115 H 06/24/16 08:26 Resp 18 06/24/16 08:26 BP 100/65 06/24/16 08:26 Pulse Ox 97 06/24/16 08:26 Intake & Output 06/23/16 06/24/16 06/24/16 18:59 06:59 18:59 Intake Total 2866.735 7231 Output Total 75799 2000 Balance -80959.833 310 Weight 105.5 kg Intake: IV 880 2160 0.9 800 1600 Albumin Human 25% 50 ml 100 In Empty Bag 1 bag @ 200 mls/hr IVPB Q15M [facility] Rx#: [id number] Furosemide 250 mg In 80 160 Sodium Chloride 0.9% 225 ml @ 10 MG/HR 10 mls/hr IVP .Q24H [facility] Rx#: [id number] Piperacillin-Tazobactam 3 50 .375 gm In Dextrose/Water 1 50ml.bag @ 12.5 mls/hr IVPB Q8HR [facility] Rx#: [id number] Vancomycin 1,750 mg In 250 Sodium Chloride 0.9% 250 ml @ 125 mls/hr IVPB Q16H [facility] Rx#:[id number] Intake, IV Titration 265.167 Amount Furosemide 250 mg In 215.167 Sodium Chloride 0.9% 225 ml @ 10 MG/HR 10 mls/hr IVP .Q24H [facility] Rx#: [id number] Piperacillin-Tazobactam 3 50 .375 gm In Dextrose/Water 1 50ml.bag @ 12.5 mls/hr IVPB Q8HR [facility] Rx#: [id number] Oral 200 150 Output: Urine 425 2000 Other [id number] Other: Voiding Method Indwelling Catheter Indwelling Catheter Indwelling Catheter On examination he is sleepy but arousable. A chin exam no JVP neck is supple no facial asymmetry Lungs are clear to auscultation and there air entry bilaterally. His chest x- ray does show right small pleural effusion and possible infiltrate. Heart sounds are unremarkable for any murmur rub gallop. Abdomen is mildly distended and there is still ascites remaining. Extremity exam was minimal edema next There is mild asterixis he is awake alert oriented usually according to nursing staff but of the time of my exam is sleepy. He follows commands. No focal motor deficit - Labs CBC & Chem 7: 06/24/16 05:45 06/24/16 05:45 Labs: Abnormal Lab Results - Last 24 Hours (Table) 06/24/16 06/24/16 Range/Units 05:45 05:45 WBC 10.9 H (3.8-10.6) k/uL RBC 4.15 L (4.30-5.90) m/uL Hgb 12.7 L (13.0-17.5) gm/dL MCHC 30.7 L (31.0-37.0) g/dL RDW 16.4 H (11.5-15.5) % Neutrophils # 9.3 H (1.3-7.7) k/uL Lymphocytes # 0.4 L (1.0-4.8) k/uL Sodium 136 L (137-145) mmol/L Chloride 97 L (98-107) mmol/L BUN 51 H (9-20) mg/dL Creatinine 1.39 H (0.66-1.25) mg/dL Microbiology - Last 24 Hours (Table) 06/23/16 13:45 Gram Stain - Preliminary Ascites Fluid Body Fluid Culture - Preliminary Assessment and Plan Plan: Impression. 1. Acute kidney injury secondary tocompartment syndrome with tight ascites. Creatinine 1.27 on 06/21/2016, went up yesterday up to 1.4 and further up to 1.48 on 06/23/2016 and is is down to 1.39 after the tap off 12 L of ascites this morning. 2. Possible chronic kidney disease but no previous creatinines available etiology could be chronic liver disease. 3. Severe ascites status post paracentesis of 12 L dated 06/23/2016. Vital signs are stable. 4. History of liver cirrhosis for the last 1 year with ascites needing frequent paracentesis. Last paracentesis before this was supposedly 06/18/2016. Bilirubin is 1.3 AST and AST are normal PT/INR is 1.5 and PTT is 50.9. Albumin is 3.5 and ammonia is 23. 5. Mild hyponatremia secondary to chronic liver disease and acute kidney injury. 6. Hyperkalemia with potassium of 6.1, improved to 5.3 yesterday 06/23/2016 and down to 4.8 this morning . Etiology is Aldactone. He is off of it Recommendation. 1. Discontinue IV fluids. Discontinue IV Lasix drip. He is comfortable and is not requiring any oxygen. 2. Watch potassium., 3. 2 g potassium diet. 4. Hold Aldactone for now 5. Hold off any diuretics for right now because of the fear of hepatorenal syndrome. 6. Discontinue vancomycin for the fear of causing acute kidney injury, he can be maintained on Zosyn. The combination of vancomycin and Zosyn specially nephrotoxic
[2016-06-24] MEDS ORDERED: DIGOXIN 250 MCG/ML 2 ML AMP IVP ONE (10:42)
--- NOTE | 2016-06-24 14:51 | P.PN ---
Subjective Principal diagnosis: Congestive heart failure This is a 71-year-old gentleman with known history of EtOH abuse, nicotine dependence, ascites, liver failure, hypertension, hyperlipidemia, COPD with home O2 use,, he presents to the hospital with symptoms of progressive shortness of breath as well as significant fluid overload abdominally. Patient has undergone prior paracentesis in the past at [facility]. Cardiology consultation was requested because of a possible congestive cardiac failure. Patient also has history of chronic persistent atrial fibrillation, EKG on admission shows atrial fibrillation with rapid ventricular response and a right bundle branch block pattern. He is not on anticoagulation at home. Heparin was placed on hold because the patient was going to be scheduled to undergo a paracentesis, this was performed yesterday, 12 L was removed. Lasix was placed on hold today by nephrology. Overall patient states he is feeling much better. Patient has been resumed on his Eliquis. Objective - Vital Signs Vital signs: Vital Signs Temp 97 F L 06/24/16 08:26 Pulse 108 H 06/24/16 12:00 Resp 16 06/24/16 12:00 BP 108/59 06/24/16 12:00 Pulse Ox 93 L 06/24/16 12:00 Intake & Output 06/23/16 06/24/16 06/24/16 18:59 06:59 18:59 Intake Total 3652.058 7022 480 Output Total 58929 2000 500 Balance -61916.833 310 -20 Weight 105.5 kg 105.5 kg Intake: IV 880 2160 480 0.9 800 1600 400 Albumin Human 25% 50 ml 100 In Empty Bag 1 bag @ 200 mls/hr IVPB Q15M [facility] Rx#: [id number] Furosemide 250 mg In 80 160 30 Sodium Chloride 0.9% 225 ml @ 10 MG/HR 10 mls/hr IVP .Q24H [facility] Rx#: [id number] Piperacillin-Tazobactam 3 50 50 .375 gm In Dextrose/Water 1 50ml.bag @ 12.5 mls/hr IVPB Q8HR [facility] Rx#: [id number] Vancomycin 1,750 mg In 250 Sodium Chloride 0.9% 250 ml @ 125 mls/hr IVPB Q16H [facility] Rx#:[id number] Intake, IV Titration 265.167 Amount Furosemide 250 mg In 215.167 Sodium Chloride 0.9% 225 ml @ 10 MG/HR 10 mls/hr IVP .Q24H [facility] Rx#: [id number] Piperacillin-Tazobactam 3 50 .375 gm In Dextrose/Water 1 50ml.bag @ 12.5 mls/hr IVPB Q8HR [facility] Rx#: [id number] Oral 200 150 Output: Urine 425 2000 500 Other [id number] Other: Voiding Method Indwelling Catheter Indwelling Catheter Indwelling Catheter - Exam PHYSICAL EXAMINATION: HEENT: Head is atraumatic, normocephalic. Pupils equal, round. Neck is supple. There is elevated jugular venous pressure. HEART EXAMINATION: Heart S1 and S2 irregular irregular a systolic murmur is heard. CHEST EXAMINATION: Lungs reveal scattered coarse wheezes throughout with diminished air entry to bilateral bases. ABDOMEN: Distended, firm, bowel sounds heard. . EXTREMITIES: 1+ peripheral pulses with 2+ evidence of peripheral edema and no calf tenderness noted. Evidence of venous stasis and chronic ulcerations bilaterally. NEUROLOGIC patient is awake, alert and oriented -3. . - Labs CBC & Chem 7: 06/24/16 05:45 06/24/16 05:45 Labs: Abnormal Lab Results - Last 24 Hours (Table) 06/24/16 06/24/16 Range/Units 05:45 05:45 WBC 10.9 H (3.8-10.6) k/uL RBC 4.15 L (4.30-5.90) m/uL Hgb 12.7 L (13.0-17.5) gm/dL MCHC 30.7 L (31.0-37.0) g/dL RDW 16.4 H (11.5-15.5) % Neutrophils # 9.3 H (1.3-7.7) k/uL Lymphocytes # 0.4 L (1.0-4.8) k/uL Sodium 136 L (137-145) mmol/L Chloride 97 L (98-107) mmol/L BUN 51 H (9-20) mg/dL Creatinine 1.39 H (0.66-1.25) mg/dL Microbiology - Last 24 Hours (Table) 06/23/16 13:45 Gram Stain - Preliminary Ascites Fluid Body Fluid Culture - Preliminary Assessment and Plan Plan: Assessment and plan #1 systolic congestive cardiac failure, acute on chronic. Lasix currently on hold. #2 ascites, patient has history of liver failure with prior paracentesis in the past. Patient underwent a paracentesis yesterday for 12 L. #3 hypertension #4 COPD # 5 hyperlipidemia #6 chronic persistent atrial fibrillation, not on anticoagulation at home. Eliquis has been resumed.. #7 nicotine dependence #8 EtOH abuse #9 hyperkalemia #10 troponin abnormality, not consistent with acute coronary syndrome, likely secondary to oxygen supply and demand mismatch. Plan Check daily lytes BUN and creatinine. DNP note has been reviewed, I agree with a documented findings and plan of care. Patient was seen and examined.
[2016-06-24 15:10] LABS: Body Fluid Comment Few Mesothelial
--- NOTE | 2016-06-24 16:46 | P.PN ---
Subjective This is a 71-year-old gentleman who follows with Dr. Andersen as his primary care physician. He has a past medical history of hyperlipidemia, hypertension, atrial fibrillation, congestive heart failure, DVT and alcoholic liver disease. He has had paracentesis in the past, most recently 5-6 months ago at [facility]. He also has a 50 pack per day smoking history and he only utilizes pro-air in the outpatient setting. He is oxygen dependent at home, usually 3-4 L. The patient appears chronically ill. He has significant lower extremity edema with weeping and redness with suspected cellulitis. He has significant abdominal distention. He is also found to be in atrial fibrillation with a rapid ventricular response. His proBNP level was greater than 36,000, TSH 11.0. His chest x-ray does reveal a right basilar pleural effusion with associated atelectasis and possible infiltrate. Abdominal ultrasound is pending. He may require paracentesis on this admission. Presently he is seen in the selective care unit. He is awake and alert and slight respiratory distress. He is maintaining O2 saturations in the low 90s on 10 L of high flow nasal cannula. His been initiated on Lasix drip currently at 10 mg per hour. He is also on Aldactone. We will continue with bronchodilators and antibiotics in the form of vancomycin. I would also go ahead and add Zosyn in conjunction with vancomycin regarding the right lower lobe pulmonary infiltrates/pneumonia. On 06/23/2016, the patient is being seen in follow-up. He is still on IV Lasix drip at 10 mg an hour. His urine output is however rather slow and is producing approximately 2 70 mL over the past 12 hours. As such as urine output is somewhat limited. His abdomen remains quite distended and he will be undergoing a therapeutic paracentesis this morning. This will be done by interventional radiology. The patient also has a right lower lobe consolidation for which she is still on a combination of Zosyn and vancomycin. He has a congested cough. No leukocytosis. No fever. His renal function is impaired with a creatinine of 1.48. Potassium level is at 5.3 and the patient is still on Aldactone. Hemoglobin is 11.8. On 06/24/2016, the patient is doing much better. His chest x-ray from today shows improvement in the volume status and the right lower lobe pulmonary infiltration. The patient underwent a large volume paracentesis and a total of 12 L of ascitic fluid was drained from the abdomen. Subsequently his condition improved. His abdomen is less tense on today's evaluation. He is less short of breath. No cough or sputum production. No chest that is no wheezing. No other complaints otherwise for now. He still has some edema in lower extremity is bilaterally. No chills. No night sweats. He is on empiric antibiotic coverage with IV Zosyn. Objective - Vital Signs Vital signs: Vital Signs Temp 96.5 F L 06/24/16 15:45 Pulse 108 H 06/24/16 16:00 Resp 16 06/24/16 16:00 BP 95/74 06/24/16 15:45 Pulse Ox 97 06/24/16 15:45 Intake & Output 06/23/16 06/24/16 06/24/16 18:59 06:59 18:59 Intake Total 0428.707 7320 480 Output Total 91870 2000 500 Balance -51885.833 310 -20 Weight 105.5 kg 105.5 kg Intake: IV 880 2160 480 0.9 800 1600 400 Albumin Human 25% 50 ml 100 In Empty Bag 1 bag @ 200 mls/hr IVPB Q15M [facility] Rx#: [id number] Furosemide 250 mg In 80 160 30 Sodium Chloride 0.9% 225 ml @ 10 MG/HR 10 mls/hr IVP .Q24H [facility] Rx#: [id number] Piperacillin-Tazobactam 3 50 50 .375 gm In Dextrose/Water 1 50ml.bag @ 12.5 mls/hr IVPB Q8HR [facility] Rx#: [id number] Vancomycin 1,750 mg In 250 Sodium Chloride 0.9% 250 ml @ 125 mls/hr IVPB Q16H [facility] Rx#:[id number] Intake, IV Titration 265.167 Amount Furosemide 250 mg In 215.167 Sodium Chloride 0.9% 225 ml @ 10 MG/HR 10 mls/hr IVP .Q24H [facility] Rx#: [id number] Piperacillin-Tazobactam 3 50 .375 gm In Dextrose/Water 1 50ml.bag @ 12.5 mls/hr IVPB Q8HR [facility] Rx#: [id number] Oral 200 150 Output: Urine 425 2000 500 Other [id number] Other: Voiding Method Indwelling Catheter Indwelling Catheter Indwelling Catheter - Exam GENERAL EXAM: Alert, comfortable at rest in no acute distress. HEAD: Normocephalic. EYES: Normal reaction of pupils, equal size. NOSE: Clear with pink turbinates. THROAT: No erythema or exudates. NECK: No masses, positive JVD. CHEST: No chest wall deformity. LUNGS: Equal air entry with crackles in the bilateral posterior bases, more so on the right. CVS: S1 and S2 normal with no audible murmurs, regular rhythm. ABDOMEN: Less Distended compared to yesterday and there has been marked improvement in the ascitic fluid, positive fluid wave. Normal bowel sounds, no guarding or rigidity. Extremities: There is 2-3+ lower extremity peripheral edema. Redness and changes of chronic venous stasis. Peripheral pulses are intact. - Labs CBC & Chem 7: 06/24/16 05:45 06/24/16 05:45 Labs: Abnormal Lab Results - Last 24 Hours (Table) 06/24/16 06/24/16 Range/Units 05:45 05:45 WBC 10.9 H (3.8-10.6) k/uL RBC 4.15 L (4.30-5.90) m/uL Hgb 12.7 L (13.0-17.5) gm/dL MCHC 30.7 L (31.0-37.0) g/dL RDW 16.4 H (11.5-15.5) % Neutrophils # 9.3 H (1.3-7.7) k/uL Lymphocytes # 0.4 L (1.0-4.8) k/uL Sodium 136 L (137-145) mmol/L Chloride 97 L (98-107) mmol/L BUN 51 H (9-20) mg/dL Creatinine 1.39 H (0.66-1.25) mg/dL Microbiology - Last 24 Hours (Table) 06/23/16 13:45 Gram Stain - Preliminary Ascites Fluid Body Fluid Culture - Preliminary Assessment and Plan Plan: Plan: Impression: #1 Dyspnea, multifactorial in a patient found to have significant abdominal ascites, acute exacerbation of chronic obstructive pulmonary disease complicated by right lower lobe atelectasis/infiltrate, acute exacerbation of suspected diastolic congestive heart failure, atrial fibrillation with rapid ventricular response. The patient is awaiting a diagnostic and neuropathic paracentesis this morning. Meanwhile he is right lung pneumonia is also being treated with a combination of Zosyn and vancomycin. There is persistent infiltration of the right lung base along with possibly development of a small right-sided pleural effusion. On 06/24/2016, the patient is status post large volume paracentesis. His all her status improved significantly. His abdomen is less tense. Less short of breath. We are in the process of weaning his FiO2 down and currently is on 8 L/ m nasal cannula and his saturations around 97% and I think is more room for improvement. #2 Acute exacerbation of suspected chronic obstructive pulmonary disease. #3 renal failure with a creatinine of 1.4. On 06/24/2016, the renal function remains stable on diuretics in the creatinine remains stable at 1.39. #4 Basilar pleural effusion with associated atelectasis/infiltrate. #5 ascites secondary to alcoholic liver disease, status post large void paracentesis #6 Daily alcohol use. #7 Atrial fibrillation with rapid ventricular response, not anticoagulated in the outpatient setting. #8 Chronic lower extremity edema or #9 Acute on chronic suspected diastolic versus systolic congestive heart failure. #10 Hyperlipidemia. #11 History of DVT. #12 Hyperlipidemia. #13 Coronary artery disease. #14 Poor overall functional performance secondary to the above-mentioned multiple comorbidities. #15 nicotine addiction/smoking is the patient carries more than [id number] smoking history. Plan The patient shortness of breath is multifactorial and it has improved significantly with large volume paracentesis. On today's chest x-ray there is improvement in the right lower lobe pulmonary infiltration in addition. Abdomen is less tense. FiO2 has been dropped down to 8 L per minute nasal cannula and there is further room for wean and this will be done over the next 24 hours. Continued IV Zosyn. We'll continue to follow
[2016-06-24] MEDS ORDERED: ARTIFICIAL TEARS-HYPROMELLOSE DROPS 15 ML BTL BOTH EYES PRN (17:38)
--- NOTE | 2016-06-24 19:36 | P.CONS ---
History of Present Illness - Reason for Consult Consult date: 06/24/16 - Chief Complaint Edema - History of Present Illness 71-year-old male with chronic alcoholism who has many medical troubles include alcoholic cardiomyopathy with ejection fraction of 20%, cirrhosis with recurrent ascites and chronic upper and lower extremity edema. Presents to Hospital feeling very poorly. Having significant worsening overall edema and much worsening ascites. Because of this he presented to Hospital. He relates in the past he was having paracentesis performed on an ongoing basis. But has now been several months since occurred she's had a marked worsening of his status. At presentation there is evidence of the extensive ascites, acute on chronic renal failure as well as extensive edema with changes to his skin. The patient is somewhat of a poor historian. Relates that he just feels poorly overall but does feel better after the 12 L high-volume paracentesis. Review of Systems HEENT:Denies headache or acute visual change. Denies sinus discomforts. Denies neck stiffness or pain. Denies significant oral cavity pain. Denies difficulty on swallowing. Mouth is dry, dentition is poor Lungs: Was having shortness of breath which is now improved. Denying colostrum production or hemoptysis. Cardiovascular: Denies significant chest pain, chest wall pain, orthopnea, dyspnea on exertion, syncope Gastrointestinal: As per the HPI his extensive ascites has poor appetite but denies nausea or emesis hematemesis melena or hematochezia. Has intermittent jaundice Musculoskeletal: denies significant myalgias or arthralgias. No new joint swelling. Denies new back pain. Skin: Skin is dry discolored and has significant dyshidrosis Neuro: Denies headache or visual change. Feels very poorly overall difficulties with walking but no falls Psychiatric:Denies anxiety or depression. 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 No experience. No international travel. Denies injection drug use. No animal exposures Smoking Status: Current every day smoker Past Alcohol Use History: Daily Past Drug Use History: None Reported - Past Family History Father History Unknown: Yes Mother History Unknown: Yes Brother(s) Additional Family Medical History / Comment(s): polio Medications and Allergies Home Medications and Allergies Comment(s): Current Medications Albuterol/Ipratropium (Duoneb 0.5 Mg-3 Mg/3 Ml Soln) 3 ml INHALATION RT-Q2H PRN PRN Reason: Shortness Of Breath Or Wheezing Albuterol/Ipratropium (Duoneb 0.5 Mg-3 Mg/3 Ml Soln) 3 ml INHALATION RT-QID [facility] Last Admin: 06/24/16 15:48 Dose: 3 ml Artificial Tears (Artificial Tear Drops) 1 drops BOTH EYES TID PRN PRN Reason: Dry Eye(s) Atorvastatin Calcium (Lipitor) 10 mg PO HS [facility] Last Admin: 06/23/16 21:24 Dose: 10 mg Budesonide (Pulmicort) 1 mg INHALATION RT-BID [facility] Last Admin: 06/24/16 07:55 Dose: 1 mg Formoterol Fumarate (Perforomist) 20 mcg INHALATION RT-BID [facility] Last Admin: 06/24/16 07:55 Dose: 20 mcg Piperacillin/Tazobactam/ (Dextrose 3.375 gm/ IV Solution) 50 mls @ 12.5 mls/hr IVPB Q8HR [facility] Last Admin: 06/24/16 15:49 Dose: 12.5 mls/hr Metoprolol Tartrate (Lopressor) 12.5 mg PO BID [facility] Last Admin: 06/24/16 08:29 Dose: 12.5 mg Nicotine (Habitrol 21mg/24hr Patch) 1 patch TRANSDERM DAILY [facility] Last Admin: 06/24/16 08:29 Dose: 1 patch Silver Sulfadiazine (Silvadene Cream) 1 applic TOPICAL BID [facility] Last Admin: 06/24/16 12:01 Dose: 1 applic Home Medications Medication Instructions Recorded Confirmed Type Albuterol Nebulized [Ventolin 2.5 mg INHALATION RT-BID 06/21/16 06/21/16 History Nebulized] Albuterol Sulfate [Proair Hfa] 2 puff INHALATION RT-Q6H PRN 06/21/16 06/21/16 History Atorvastatin [Lipitor] 10 mg PO HS 06/21/16 06/21/16 History Furosemide [Lasix] 80 mg PO BID 06/21/16 06/21/16 History Metoprolol Tartrate [Lopressor] 50 mg PO Q12H 06/21/16 06/21/16 History Spironolactone 50 mg PO DAILY 06/21/16 06/21/16 History Allergies Allergy/AdvReac Type Severity Reaction Status Date / Time No Known Allergies Allergy Verified 06/21/16 22:31 Physical Exam Vitals: Vital Signs Temp Pulse Pulse Resp BP Pulse Ox 06/24/16 16:00 108 H 16 06/24/16 15:55 92 06/24/16 15:50 90 06/24/16 15:45 96.5 F L 117 H 16 95/74 97 06/24/16 12:00 108 H 16 108/59 93 L 06/24/16 11:32 96 06/24/16 11:22 92 06/24/16 08:26 97 F L 115 H 18 100/65 97 06/24/16 08:25 90 06/24/16 08:20 18 06/24/16 08:05 92 06/24/16 08:02 92 06/24/16 07:57 96 94 L 06/24/16 04:15 96.9 F L 117 H 18 84/60 94 L 06/24/16 00:00 96.8 F L 119 H 20 95/54 94 L 06/23/16 21:17 96.8 F L 109 H 20 103/61 96 06/23/16 20:45 94 06/23/16 20:32 90 06/23/16 20:31 90 06/23/16 20:21 92 Intake and Output 06/24/16 06/24/16 06/24/16 06:59 14:59 22:59 Intake Total 1080 480 222 Output Total 7303 349 8200 Balance -220 -20 -903 Intake: IV 930 480 0.9 800 400 Furosemide 250 mg In 80 30 Sodium Chloride 0.9% 225 ml @ 10 MG/HR 10 mls/hr IVP .Q24H [facility] Rx#: [id number] Piperacillin-Tazobactam 3 50 50 .375 gm In Dextrose/Water 1 50ml.bag @ 12.5 mls/hr IVPB Q8HR [facility] Rx#: [id number] Oral 150 222 Output: Urine 5500 785 4525 Other: Voiding Method Indwelling Catheter Indwelling Catheter Indwelling Catheter Weight 105.5 kg 105.5 kg Patient Weight 06/25/16 06:59 Weight 105.5 kg 71-year-old male doing very poorly due to his chronic alcoholism. HEENT: Mildly icteric conjunctiva are pink and moist nasal mucosa grossly intact without significant lesions, there is no thrush. Dentition very poor Neck: The neck is supple without significant lymphadenopathy or thyromegaly. Lungs: Symmetrical air entry with few basilar crackles and expiratory wheezes are scattered no egophony or changes of tactile fremitus Heart: Irregular with an audible S1-S2, no S3 positive S4. 2 over 6 systolic murmur is noted without click or rub Abdomen: Positive bowel sounds soft and nontender without palpable masses or organomegaly. There was no guarding or rebound. Extremities: The upper and lower extremities show evidence of significant edema. The skin is dry and cracked with significant flaking. Evaluation there is no sticking open or weeping areas. The skin however has generalized erythema. He relates it's minimally pruritic and just feels dry. Neuro: Awake alert oriented to person place and time. Is aware that his sister in law and daughter have come to visit. He however is very slow and a poor historian Results CBC & Chem 7: 06/24/16 05:45 06/24/16 05:45 Labs: Abnormal Lab Results - Last 24 Hours (Table) 06/24/16 06/24/16 Range/Units 05:45 05:45 WBC 10.9 H (3.8-10.6) k/uL RBC 4.15 L (4.30-5.90) m/uL Hgb 12.7 L (13.0-17.5) gm/dL MCHC 30.7 L (31.0-37.0) g/dL RDW 16.4 H (11.5-15.5) % Neutrophils # 9.3 H (1.3-7.7) k/uL Lymphocytes # 0.4 L (1.0-4.8) k/uL Sodium 136 L (137-145) mmol/L Chloride 97 L (98-107) mmol/L BUN 51 H (9-20) mg/dL Creatinine 1.39 H (0.66-1.25) mg/dL Microbiology - Last 24 Hours (Table) 06/23/16 13:45 Gram Stain - Preliminary Ascites Fluid Body Fluid Culture - Preliminary Laboratory Results WBC 10.9 k/uL (3.8-10.6) H 06/24/16 05:45 RBC 4.15 m/uL (4.30-5.90) L 06/24/16 05:45 Hgb 12.7 gm/dL (13.0-17.5) L 06/24/16 05:45 Hct 41.3 % (39.0-53.0) 06/24/16 05:45 MCV 99.5 fL (80.0-100.0) 06/24/16 05:45 MCH 30.6 pg (25.0-35.0) 06/24/16 05:45 MCHC 30.7 g/dL (31.0-37.0) L 06/24/16 05:45 RDW 16.4 % (11.5-15.5) H 06/24/16 05:45 Plt Count 200 k/uL (150-450) 06/24/16 05:45 Neutrophils % 85 % 06/24/16 05:45 Lymphocytes % 4 % 06/24/16 05:45 Monocytes % 7 % 06/24/16 05:45 Eosinophils % 1 % 06/24/16 05:45 Basophils % 1 % 06/24/16 05:45 Neutrophils # 9.3 k/uL (1.3-7.7) H 06/24/16 05:45 Lymphocytes # 0.4 k/uL (1.0-4.8) L 06/24/16 05:45 Monocytes # 0.8 k/uL (0-1.0) 06/24/16 05:45 Eosinophils # 0.1 k/uL (0-0.7) 06/24/16 05:45 Basophils # 0.1 k/uL (0-0.2) 06/24/16 05:45 Hypochromasia Marked 06/24/16 05:45 Anisocytosis Slight 06/24/16 05:45 Macrocytosis Slight 06/24/16 05:45 PT 14.6 sec (9.0-12.0) H 06/23/16 05:51 INR 1.5 (<1.1) 06/23/16 05:51 APTT 50.9 sec (22.0-30.0) H 06/22/16 02:24 Sodium 136 mmol/L (137-145) L 06/24/16 05:45 Potassium 4.8 mmol/L (3.5-5.1) 06/24/16 05:45 Chloride 97 mmol/L (98-107) L 06/24/16 05:45 Carbon Dioxide 23 mmol/L (22-30) 06/24/16 05:45 Anion Gap 16 mmol/L 06/24/16 05:45 BUN 51 mg/dL (9-20) H 06/24/16 05:45 Creatinine 1.39 mg/dL (0.66-1.25) H 06/24/16 05:45 Est GFR (MDRD) Af Amer >60 (>60 ml/min/1.73 sqM) 06/24/16 05:45 Est GFR (MDRD) Non-Af 51 (>60 ml/min/1.73 sqM) 06/24/16 05:45 Glucose 92 mg/dL (74-99) 06/24/16 05:45 Calcium 8.6 mg/dL (8.4-10.2) 06/24/16 05:45 Phosphorus 4.0 mg/dL (2.5-4.5) 06/21/16 18:08 Magnesium 2.3 mg/dL (1.6-2.3) 06/23/16 05:51 Total Bilirubin 1.3 mg/dL (0.2-1.3) 06/23/16 05:51 AST 28 U/L (17-59) 06/23/16 05:51 ALT 32 U/L (21-72) 06/23/16 05:51 Alkaline Phosphatase 155 U/L (38-126) H 06/23/16 05:51 Ammonia 23 umol/L (<30) 06/23/16 05:51 Total Creatine Kinase 125 U/L (55-170) 06/21/16 18:08 CK-MB (CK-2) 10.0 ng/mL (0.0-2.4) H* 06/21/16 18:08 CK-MB (CK-2) Rel Index 8.0 06/21/16 18:08 Troponin I 0.052 ng/mL (0.000-0.034) H* 06/22/16 08:20 NT-Pro-B Natriuret Pep 36400 pg/mL 06/21/16 18:08 Total Protein 6.7 g/dL (6.3-8.2) 06/23/16 05:51 Albumin 3.5 g/dL (3.5-5.0) 06/23/16 05:51 Tumor Marker AFP 2.3 ng/mL (0.0-7.9) 06/23/16 09:27 TSH 11.000 mIU/L (0.465-4.680) H 06/22/16 08:20 Free T4 1.33 ng/dL (0.78-2.19) 06/22/16 08:20 Urine Color Yellow 06/22/16 00:00 Urine Appearance Clear (Clear) 06/22/16 00:00 Urine pH 5.0 (5.0-8.0) 06/22/16 00:00 Ur Specific [place] 1.011 (1.001-1.035) 06/22/16 00:00 Urine Protein Trace (Negative) H 06/22/16 00:00 Urine Glucose (UA) Negative (Negative) 06/22/16 00:00 Urine Ketones Negative (Negative) 06/22/16 00:00 Urine Blood Negative (Negative) 06/22/16 00:00 Urine Nitrate Negative (Negative) 06/22/16 00:00 Urine Bilirubin Negative (Negative) 06/22/16 00:00 Urine Urobilinogen 3.0 mg/dL (<2.0) 06/22/16 00:00 Ur Leukocyte Esterase Negative (Negative) 06/22/16 00:00 Fluid Source Peritoneal 06/23/16 13:45 Fluid Appearance Clear 06/23/16 13:45 Fluid RBC 325 /uL 06/23/16 13:45 Fluid Nucleated Cells 65 /uL 06/23/16 13:45 Fluid Polynuclear WBCs 28 % 06/23/16 13:45 Fluid Mononuclear WBCs 72 % 06/23/16 13:45 Fluid Comment Few Mesothelial 06/23/16 13:45 Vancomycin Trough 21.0 ug/mL 06/23/16 19:16 Hepatitis A IgM Ab NEGATIVE 06/23/16 05:51 Hep Bs Antigen Negative 06/23/16 05:51 Hep B Core IgM Ab NEGATIVE 06/23/16 05:51 Hep C IgG Ab Negative (Negative) 06/23/16 05:51 Microbiology 06/23/16 13:45 Ascites Fluid Gram Stain - Preliminary 06/23/16 13:45 Ascites Fluid Body Fluid Culture - Preliminary Assessment and Plan (1) Bilateral lower leg cellulitis Narrative/Plan: 71-year-old male presents to Hospital with worsening of his overall status especially of his ascites and the effects was having on him. Because of the been quite sometime since his last paracentesis sought care for this. He is now status post a high-volume 12 L paracentesis and he relates he feels considerably better. Still feels a bit bloated. He has been seen by nephrology because of his acute renal failure concerns of the hepatorenal syndrome. Fortunately showing some slight improvement today. He has hypoalbuminemia, alcoholism and significant chronic edema. This is cause significant changes to his skin which is resulted in the very dried cracking appearance. At this time local skin care with moisturizer should be utilize Silvadene is being applied and is reasonable and can be wrapped into place of the lower extremities. He been on Aldactone that is now discontinued. The patient did have a paracentesis and that fluid has been sent to the laboratory. While cultures are pending antibiotic therapy has begun. When utilize ceftriaxone which will give us coverage for both infection of the peritoneal cavity as well as difficulties with his skin. If he becomes febrile blood cultures will be helpful. Overall the patient has quite a poor prognosis. Status: Acute (2) Alcoholic liver disease Status: Chronic (3) Leukocytosis Status: Acute
[2016-06-24] MEDS: ATORVASTATIN 10 MG TAB PO SCH (20:56)
--- NOTE | 2016-06-24 21:42 | PN ---
DATE OF SERVICE: 06/24/2016 PRESENTING COMPLAINT: Short of breath. INTERVAL HISTORY: This patient presented with multiple problems, including cirrhosis, alcohol-induced, severe ascites, status post 12 liters of fluid being removed; also acute renal failure. Patient's Lasix has been discontinued. He is also being treated for cellulitis. Because of nephrotoxicity, vancomycin has been continued. Continued on Zosyn. Patient did tolerate some diet. Review of systems done for constitutional, cardiovascular, GI, pulmonary; relevant findings as above. Current medications are reviewed that include IV Zosyn. Lasix and vancomycin were discontinued. Patient also has Silvadene cream. On examination, temperature 96.5, pulse 90, respiration 16, blood pressure 95/74, pulse ox 97% on 8 L. GENERAL APPEARANCE: A bit more awake. Sitting up. EYES: Pupils equal. Conjunctivae normal. NECK: JVD not raised. Mass not palpable. RESPIRATORY: Effort increased. LUNGS: Diminished breath sounds. CARDIOVASCULAR: Heart sounds irregular. Edema present. ABDOMEN: Less distended, soft. Liver and spleen not palpable. PSYCHIATRY: Far more awake. Talking more appropriately. INVESTIGATIONS: White count 10.9, hemoglobin 12.7. Potassium 4.8. BUN 51, creatinine 1.39. Chest x-ray; right lower infiltrate is somewhat better. Fluid status has also improved. ASSESSMENT: 1. Acute and chronic congestive heart failure exacerbation from systolic dysfunction; could be from underlying alcoholic cardiomyopathy. 2. Acute respiratory failure, hypoxic, present on admission, from underlying chronic obstructive pulmonary disease. 3. Congestive heart failure, slow to respond. Still requiring 8 L oxygen. 4. Acute chronic obstructive pulmonary disease exacerbation in a current smoker. 5. Chronic nicotine dependence. Patient is an active smoker. 6. Persistent atrial fibrillation with rapid ventricular rate on presentation. 7. Possible acute renal failure; could be prerenal; cannot rule out a chronic component. 8. Chronic alcoholism. 9. Troponin leak; could be hemodynamic mismatch. 10. Acute cellulitis in all 4 extremities. 11. Tense ascites on presentation from alcoholic cirrhosis, status post 12 liters being removed. 12. Possible acute cor pulmonale on chronic cor pulmonale. 13. Alcoholic liver disease/cirrhosis. 14. Hyperkalemia, improved. 15. Medical debility. PLAN: Care was discussed with the patient as well as the family members. Prognosis is guarded. Continue current medication and treatment plan, supportive care. Patient does seem to have underlying chronic component. Will repeat abdominal ultrasound to look at the patient's liver and kidneys.
[2016-06-25 06:40] LABS: Anisocytosis Slight; Basophils % (A) 0 %; CH 30.9; CHCM 32.7; Eosinophils # (A) 0.2 k/uL (0-0.7); Eosinophils % (A) 2 %; HCT 39.6 % (39.0-53.0); HDW 3.41; HGB 12.9 gm/dL (13.0-17.5); Hypochromasia Slight; Luc # (Auto) 0.33; Luc % (Auto) 3; Lymphocytes # (A) 0.6 k/uL (1.0-4.8); Lymphocytes % (A) 5 %; MCH 31.1 pg (25.0-35.0); MCHC 32.6 g/dL (31.0-37.0); MCV 95.3 fL (80.0-100.0); Mean Platelet Volume 8.6; Monocytes % (A) 8 %; Neutrophils # (A) 10.7 k/uL (1.3-7.7); Neutrophils % (A) 84 %; Poikilocytosis Slight; RBC 4.16 m/uL (4.30-5.90); RDW 16.5 % (11.5-15.5); WBC 12.9 k/uL (3.8-10.6); WBC (Perox) 12.72
--- NOTE | 2016-06-25 08:01 | US ---
EXAMINATION TYPE: US abdomen complete DATE OF EXAM: 06/25/2016 7:45 AM COMPARISON: NONE CLINICAL HISTORY: Ascites, evaluate for cirrhosis and CKD. EXAM MEASUREMENTS: Liver Length: 17.5cm Gallbladder Wall: 1.2cm CBD: 0.3cm Spleen: 11.6cm Right Kidney: 11.1 x 5.7 x 5.6cm Left Kidney: 11.3 x 7.1 x 5.0cm ANATOMY: Findings: Patient has a large volume of ascites, large abdomen and pitting edema in abdomen, exam technically d ifficult and somewhat limited Pancreas: Obscured by bowel gas Liver: lobular, enlarged, somewhat heterogeneous Gallbladder: thickened wall Evidence for sonographic Casanova's sign: no CBD: Within normal limits Spleen: limited visualizaton Right Kidney: No hydronephrosis or masses seen Left Kidney: lower pole obscured by bowel gas Upper IVC: Within normal limits Abd Aorta: Obscured by overlying bowel gas IMPRESSION: 1. Ascites. 2. Suspect underlying cirrhotic liver disease without distinct lesion. 3. Gallbladder wall thickening. Normal Values: Liver Length: < 16cm wnl, 17-18cm upper limits, >18cm enlarged Spleen Length = < 13cm Renal Length = 9 - 12cm GB Wall: < 0.3cm CBD: < 0.6cm or < 1.0cm post cholecystectomy
--- NOTE | 2016-06-25 08:49 | P.PN ---
Rosamaria Becerra is a 71-year-old male with acute kidney injury secondary to likely compartment syndrome from tight ascites. He had paracentesis 12 L were taken off dated 06/23/2016. His urine output picked up. He was given albumin 25 g twice once before and once after the tap. Since then he is doing well. Awake alert oriented. Has fair appetite. No nausea vomiting diarrhea. Yesterday his Lasix was discontinued and his IV fluids were discontinued. His urine output is 2725 this morning last 12 hours 16 25 mL urine output Does have cough but no shortness of breath no chest pain. His abdomen continues to distended with ascites. 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 Additionally he has possible pneumonia on the right lower lung zone. Objective - Vital Signs Vital signs: Vital Signs Temp 97 F L 06/25/16 04:00 Pulse 111 H 06/25/16 04:00 Resp 20 06/25/16 04:00 BP 88/57 06/25/16 04:00 Pulse Ox 92 L 06/25/16 04:00 Intake & Output 06/24/16 06/25/16 06/25/16 18:59 06:59 18:59 Intake Total 702 50 Output Total 1625 1100 Balance -923 -1050 Weight 105.5 kg 105 kg Intake: IV 480 50 0.9 400 Furosemide 250 mg In 30 Sodium Chloride 0.9% 225 ml @ 10 MG/HR 10 mls/hr IVP .Q24H JOSLYN Rx#: [id number] Piperacillin-Tazobactam 3 50 50 .375 gm In Dextrose/Water 1 50ml.bag @ 12.5 mls/hr IVPB Q8HR JOSLYN Rx#: [id number] Oral 222 Output: Urine 1625 1100 Other: Voiding Method Indwelling Catheter Indwelling Catheter On examination awake alert oriented. HEENT exam JVP is elevated. Neck is supple no facial asymmetry Lungs are significant for bilateral expiratory wheezing fair air entry no dullness percussion Chest x-ray yesterday 06/24/2016 shows improved lung findings, cardiomegaly by basilar atelectasis. Heart sounds are unremarkable no murmur rub gallop Abdomen is soft nontender slightly distended the site is Extremity exam was mild edema Neurologically awake alert oriented. - Labs CBC & Chem 7: 06/25/16 05:41 06/24/16 05:45 Labs: Abnormal Lab Results - Last 24 Hours (Table) 06/25/16 Range/Units 05:41 WBC 12.9 H (3.8-10.6) k/uL RBC 4.16 L (4.30-5.90) m/uL Hgb 12.9 L (13.0-17.5) gm/dL RDW 16.5 H (11.5-15.5) % Neutrophils # 10.7 H (1.3-7.7) k/uL Lymphocytes # 0.6 L (1.0-4.8) k/uL Microbiology - Last 24 Hours (Table) 06/23/16 13:45 Gram Stain - Preliminary Ascites Fluid Body Fluid Culture - Preliminary Assessment and Plan Plan: Impression. 1. Acute kidney injury secondary to compartment syndrome with tight ascites. Creatinine 1.27 on 06/21/2016, went up up to 1.4 and further up to 1.48 on 04/2017 and is is down to 1.39 after the tap off 12 L of ascites dated 2016. And creatinine this morning is pending. this morning. 2. Possible chronic kidney disease but no previous creatinines available etiology could be chronic liver disease. 3. Severe ascites status post paracentesis of 12 L dated 06/23/2016. Vital signs are stable. Ascites is the accumulating. 4. History of liver cirrhosis for the last 1 year with ascites needing frequent paracentesis. Last paracentesis before this was supposedly 06/18/2016. Labs dated 06/23/2016 Bilirubin is 1.3 AST and AST are normal PT/INR is 1.5 and PTT is 50.9. Albumin is 3.5 and ammonia is 23. 5. Mild hyponatremia secondary to chronic liver disease and acute kidney injury. 6. Hyperkalemia with potassium of 6.1, improved to 5.3 yesterday 06/23/2016 and down to 4.8 this morning . Etiology is Aldactone. He is off of it Recommendation. 1. Because of the edema and recommendation of bursitis was trying more Lasix 20 mg once a day and see if his blood pressure will hold and his creatinine will be stable and hope to see an increase in urine output, and reduction in ascites and edema. Watch for hepatorenal syndrome., Given that his ascites reaccumulating rapidly his prognosis very guarded
[2016-06-25] MEDS ORDERED: FUROSEMIDE 20 MG TAB PO SCH ×2 (09:00→18:10)
[2016-06-25] MEDS: BUDESONIDE 1 MG/2 ML NEBU INHALATION SCH ×2 (09:03→20:21)
[2016-06-25] MEDS: FORMOTEROL FUMARATE 20 MCG/2 ML NEBU INHALATION SCH ×2 (09:03→20:21)
[2016-06-25] MEDS: IPRATROPIUM-ALBUTEROL 3 ML NEB INHALATION SCH ×4 (09:04→20:22)
--- NOTE | 2016-06-25 09:46 | P.PN ---
Subjective Principal diagnosis: Ascites 71-year-old male with a history of alcohol liver cirrhosis portal hypertension and ascites. Status post Paracentesis 2 days ago with 12 L removal. Tolerating diet. Denies abdominal pain. Afebrile. Objective - Vital Signs Vital signs: Vital Signs Temp 97 F L 06/25/16 04:00 Pulse 111 H 06/25/16 04:00 Resp 20 06/25/16 04:00 BP 88/57 06/25/16 04:00 Pulse Ox 92 L 06/25/16 04:00 Intake & Output 06/24/16 06/25/16 06/25/16 18:59 06:59 18:59 Intake Total 702 50 118 Output Total 1625 1100 Balance -923 -1050 118 Weight 105.5 kg 105 kg Intake: IV 480 50 0.9 400 Furosemide 250 mg In 30 Sodium Chloride 0.9% 225 ml @ 10 MG/HR 10 mls/hr IVP .Q24H JOSLYN Rx#: [id number] Piperacillin-Tazobactam 3 50 50 .375 gm In Dextrose/Water 1 50ml.bag @ 12.5 mls/hr IVPB Q8HR JOSLYN Rx#: [id number] Oral 222 118 Output: Urine 1625 1100 Other: Voiding Method Indwelling Catheter Indwelling Catheter - Exam General appearance: The patient is alert, oriented, mild shortness of breath. HET: Head is normocephalic and atraumatic. Pupils are equal and reactive. Oropharynx is clear without lesions. Neck: Supple without lymphadenopathy. Trachea midline. Heart: S1 S2. Regular rate and rhythm. Lungs: Managed bilaterally. Abdomen: Less distended with mild ascites.much improved from yesterday's exam bowel sounds present. No peritoneal signs. No palpable organomegaly or masses. Extremities: Diffuse scaly skin multiple hyperkeratosis areas on all extremities , face with telangiectasia. No asterixis. +2 bilaterally lower extremity edema. Wilder with morelia clear urine. Neurological: No focal deficits. Strength and sensation are grossly intact. - Labs CBC & Chem 7: 06/25/16 05:41 06/24/16 05:45 Labs: Abnormal Lab Results - Last 24 Hours (Table) 06/25/16 Range/Units 05:41 WBC 12.9 H (3.8-10.6) k/uL RBC 4.16 L (4.30-5.90) m/uL Hgb 12.9 L (13.0-17.5) gm/dL RDW 16.5 H (11.5-15.5) % Neutrophils # 10.7 H (1.3-7.7) k/uL Lymphocytes # 0.6 L (1.0-4.8) k/uL Microbiology - Last 24 Hours (Table) 06/23/16 13:45 Gram Stain - Preliminary Ascites Fluid Body Fluid Culture - Preliminary Assessment and Plan (1) Ascites Narrative/Plan: Acute on chronic status post therapeutic diagnostic paracentesis Status: Chronic (2) Alcoholic liver disease Status: Chronic (3) Portal hypertension Status: Chronic (4) Coagulopathy Status: Chronic (5) ETOH abuse Status: Chronic (6) Atrial fibrillation with RVR Status: Acute (7) CHF (congestive heart failure) Status: Acute (8) MRSA (methicillin resistant Staphylococcus aureus) Narrative/Plan: History of MRSA Status: Chronic Plan: 1. Continue diuretics per nephrology recommendations. 2. Low-salt diet. Ascites fluid pathology pending. 3. Supportive measures. RTO 1-2 weeks after discharge for reevaluation. Assessment and plan of care discussed with Dr. Bush.
[2016-06-25] MEDS: NICOTINE 21MG/24HR PATCH TRANSDERM SCH (10:20)
[2016-06-25] MEDS: METOPROLOL TARTRATE 12.5 MG TAB PO SCH ×2 (10:20→21:09)
--- NOTE | 2016-06-25 15:14 | P.PN ---
Subjective This is a 71-year-old gentleman who follows with Dr. Andersen as his primary care physician. He has a past medical history of hyperlipidemia, hypertension, atrial fibrillation, congestive heart failure, DVT and alcoholic liver disease. He has had paracentesis in the past, most recently 5-6 months ago at [facility]. He also has a 50 pack per day smoking history and he only utilizes pro-air in the outpatient setting. He is oxygen dependent at home, usually 3-4 L. The patient appears chronically ill. He has significant lower extremity edema with weeping and redness with suspected cellulitis. He has significant abdominal distention. He is also found to be in atrial fibrillation with a rapid ventricular response. His proBNP level was greater than 36,000, TSH 11.0. His chest x-ray does reveal a right basilar pleural effusion with associated atelectasis and possible infiltrate. Abdominal ultrasound is pending. He may require paracentesis on this admission. Presently he is seen in the selective care unit. He is awake and alert and slight respiratory distress. He is maintaining O2 saturations in the low 90s on 10 L of high flow nasal cannula. His been initiated on Lasix drip currently at 10 mg per hour. He is also on Aldactone. We will continue with bronchodilators and antibiotics in the form of vancomycin. I would also go ahead and add Zosyn in conjunction with vancomycin regarding the right lower lobe pulmonary infiltrates/pneumonia. On 06/23/2016, the patient is being seen in follow-up. He is still on IV Lasix drip at 10 mg an hour. His urine output is however rather slow and is producing approximately 2 70 mL over the past 12 hours. As such as urine output is somewhat limited. His abdomen remains quite distended and he will be undergoing a therapeutic paracentesis this morning. This will be done by interventional radiology. The patient also has a right lower lobe consolidation for which she is still on a combination of Zosyn and vancomycin. He has a congested cough. No leukocytosis. No fever. His renal function is impaired with a creatinine of 1.48. Potassium level is at 5.3 and the patient is still on Aldactone. Hemoglobin is 11.8. On 06/24/2016, the patient is doing much better. His chest x-ray from today shows improvement in the volume status and the right lower lobe pulmonary infiltration. The patient underwent a large volume paracentesis and a total of 12 L of ascitic fluid was drained from the abdomen. Subsequently his condition improved. His abdomen is less tense on today's evaluation. He is less short of breath. No cough or sputum production. No chest that is no wheezing. No other complaints otherwise for now. He still has some edema in lower extremity is bilaterally. No chills. No night sweats. He is on empiric antibiotic coverage with IV Zosyn. On 06/25/2016 the patient is being seen in follow-up. He is doing better. His FiO2 has been cut down to 5 L of oxygen by nasal cannula and his saturation is order of 94-95%. His baseline oxygen requirement is at 3 L/m nasal cannula. His abdomen is less distended. He underwent a large volume paracentesis yesterday. He is responding to oral Lasix and there is a negative fluid balance of more than 1 L over the past 24 hours. No chest pain. No cough or sputum production. Antibiotics have been switched to IV Rocephin per IDs recommendations. Objective - Vital Signs Vital signs: Vital Signs Temp 97.1 F L 06/25/16 09:35 Pulse 100 06/25/16 12:15 Resp 16 06/25/16 12:15 BP 98/58 06/25/16 12:15 Pulse Ox 98 06/25/16 12:15 Intake & Output 06/24/16 06/25/16 06/25/16 18:59 06:59 18:59 Intake Total 702 50 765 Output Total 1625 1100 200 Balance -923 -1050 565 Weight 105.5 kg 105 kg Intake: IV 480 50 50 0.9 400 Furosemide 250 mg In 30 Sodium Chloride 0.9% 225 ml @ 10 MG/HR 10 mls/hr IVP .Q24H JOSLYN Rx#: [id number] Piperacillin-Tazobactam 3 50 50 .375 gm In Dextrose/Water 1 50ml.bag @ 12.5 mls/hr IVPB Q8HR JOSLYN Rx#: [id number] cefTRIAXone 1,000 mg In 50 Sodium Chloride 0.9% 50 ml @ 100 mls/hr IVPB Q24HR JOSLYN Rx#:[id number] Oral 222 715 Output: Urine 1625 1100 200 Other: Voiding Method Indwelling Catheter Indwelling Catheter Indwelling Catheter - Exam GENERAL EXAM: Alert, comfortable at rest in no acute distress. HEAD: Normocephalic. EYES: Normal reaction of pupils, equal size. NOSE: Clear with pink turbinates. THROAT: No erythema or exudates. NECK: No masses, positive JVD. CHEST: No chest wall deformity. LUNGS: Equal air entry with crackles in the bilateral posterior bases, more so on the right. CVS: S1 and S2 normal with no audible murmurs, regular rhythm. ABDOMEN: Less Distended compared to yesterday and there has been marked improvement in the ascitic fluid, positive fluid wave. Normal bowel sounds, no guarding or rigidity. Extremities: There is 2-3+ lower extremity peripheral edema. Redness and changes of chronic venous stasis. Peripheral pulses are intact. - Labs CBC & Chem 7: 06/25/16 05:41 06/24/16 05:45 Labs: Abnormal Lab Results - Last 24 Hours (Table) 06/25/16 Range/Units 05:41 WBC 12.9 H (3.8-10.6) k/uL RBC 4.16 L (4.30-5.90) m/uL Hgb 12.9 L (13.0-17.5) gm/dL RDW 16.5 H (11.5-15.5) % Neutrophils # 10.7 H (1.3-7.7) k/uL Lymphocytes # 0.6 L (1.0-4.8) k/uL Microbiology - Last 24 Hours (Table) 06/23/16 13:45 Gram Stain - Preliminary Ascites Fluid Body Fluid Culture - Preliminary Assessment and Plan Plan: Plan: Impression: #1 Dyspnea, multifactorial in a patient found to have significant abdominal ascites, acute exacerbation of chronic obstructive pulmonary disease complicated by right lower lobe atelectasis/infiltrate, acute exacerbation of suspected diastolic congestive heart failure, atrial fibrillation with rapid ventricular response. The patient is awaiting a diagnostic and neuropathic paracentesis this morning. Meanwhile he is right lung pneumonia is also being treated with a combination of Zosyn and vancomycin. There is persistent infiltration of the right lung base along with possibly development of a small right-sided pleural effusion. On 06/24/2016, the patient is status post large volume paracentesis. His all her status improved significantly. His abdomen is less tense. Less short of breath. We are in the process of weaning his FiO2 down and currently is on 8 L/ m nasal cannula and his saturations around 97% and I think is more room for improvement. On 06/25/2016, the patient is still quite stable and his FiO2 is been gradually weaned down to 5 L of oxygen by nasal cannula. No major respiratory distress. He is on IV Rocephin. He is on oral Lasix. He is diuresing well and he is producing adequate amount of urine output and is a negative fluid balance. #2 Acute exacerbation of suspected chronic obstructive pulmonary disease. #3 renal failure with a creatinine of 1.4. On 06/24/2016, the renal function remains stable on diuretics in the creatinine remains stable at 1.39. #4 Basilar pleural effusion with associated atelectasis/infiltrate. #5 ascites secondary to alcoholic liver disease, status post large void paracentesis #6 Daily alcohol use. #7 Atrial fibrillation with rapid ventricular response, not anticoagulated in the outpatient setting. #8 Chronic lower extremity edema or #9 Acute on chronic suspected diastolic versus systolic congestive heart failure. #10 Hyperlipidemia. #11 History of DVT. #12 Hyperlipidemia. #13 Coronary artery disease. #14 Poor overall functional performance secondary to the above-mentioned multiple comorbidities. #15 nicotine addiction/smoking is the patient carries more than [id number] smoking history. Plan Continue oral Lasix. Keep the patient in a negative fluid balance. Cut down the salt intake. The Fluid Intake. Monitor the Renal Function. Wean down the FiO2 As Tolerated. Sit up on a Chair. We'll Continue to Follow.
[2016-06-25 16:11] LABS: Anion Gap 11 mmol/L; Blood Urea Nitrogen 42 mg/dL (9-20); Calcium 8.4 mg/dL (8.4-10.2); Carbon Dioxide 33 mmol/L (22-30); Chloride 92 mmol/L (98-107); Glucose 112 mg/dL (74-99); Non-African American GFR(MDRD) 55 (>60 ml/min/1.73 sqM); Potassium 4.4 mmol/L (3.5-5.1); Sodium 136 mmol/L (137-145)
[2016-06-25] MEDS: DIGOXIN 125 MCG TAB PO SCH (17:39)
--- NOTE | 2016-06-25 17:40 | P.PN ---
Progress Note - Text This is a pleasant 71-year-old gentleman with a past medical history significant for alcohol abuse, cardiomyopathy, COPD, chronic kidney disease, and multiple comorbid conditions who was admitted to the hospital with fluid overload and evidence of congestive heart failure. Initially he was started on Lasix IV without significant improvement in the symptoms. He was found to have a site this and he underwent paracentesis with significant improvement in the shortness of breath. Hemodynamically, he continues to be stable with a slightly uncontrolled heart rates. The pressure has been marginal. I am going to add digoxin to the current medical regimen. He is in atrial fibrillation which seems to be chronic atrial fibrillation. I will continue the current medical treatment. Continue monitor the kidney function and electrolytes. He underwent an echocardiogram which showed severely impaired LV function with an ejection fraction of 25%. In review of that I am adding lisinopril and Aldactone to the current medical treatment and continue following up with the patient. At certain points, the patient need to be started on anticoagulation.
[2016-06-25] MEDS ORDERED: FUROSEMIDE 40 MG TAB PO SCH (18:12)
--- NOTE | 2016-06-25 20:24 | PN ---
DATE OF SERVICE: 06/25/2016 PRESENTING COMPLAINT: Shortness of breath. INTERVAL HISTORY: This is a patient with multiple issues including alcohol-induced cirrhosis and severe ascites, status post paracentesis of 12 liters, acute renal failure, COPD, pneumonia and cellulitis. Patient abdomen is again getting distended. Tolerating some diet. Patient is put on 20 mg of Lasix, ( ) Dr. Grijalva. Review of systems done for constitutional, cardiovascular, GI, pulmonary; dermatologic; relevant findings as above. There is some improvement in cellulitis. Current medications are reviewed that include IV ceftriaxone and p.o. Lasix. On examination, temperature 97.1, pulse 72, respirations 16, blood pressure 95/60, pulse ox 95% on ( ) L. GENERAL APPEARANCE: Sitting up, more awake. EYES: Pupils equal. Conjunctivae normal. NECK: JVD raised.. LUNGS: Crackles at the left base. CARDIOVASCULAR: Heart sounds regular. Edema present. ABDOMEN: More distended. Liver and spleen not palpable. PSYCHIATRY: Awake, answering questions. INVESTIGATIONS: White count 12.9, hemoglobin 12.9, potassium 4.4. BUN 42, creatinine 1.29. Abdominal ultrasound shows ascites yet again. ASSESSMENT: 1. Acute on chronic congestive heart failure exacerbation from systolic dysfunction could be from underlying alcoholic cardiomyopathy. Patient's ejection fraction is 20% to 25%. 2. Acute respiratory failure, hypoxic, present on admission, from underlying chronic obstructive pulmonary disease, slow to respond. 3. Acute chronic obstructive pulmonary disease exacerbation in a smoker. 4. Chronic nicotine dependence. Patient is an active cigarette smoker. 5. Persistent atrial fibrillation. 6. Acute on chronic renal failure, probably multifactorial. 7. Chronic alcoholism. 8. Troponin leak from hemodynamic mismatch. 9. Acute cellulitis in all 4 extremities. 10. Dense ascites on presentation, from alcoholic cirrhosis, status post 12 liters being removed. Patient's abdomen was distended, yet again. 11. Possible acute cor pulmonale on chronic cor pulmonale. 12. Alcoholic liver disease/cirrhosis. 13. Hyperkalemia in the setting of renal failure. PLAN: Discussed with Dr. Grijalva. We will increase the dose of Lasix. We will put him on fluid restriction of 500 mL a day. DANIELA inhibitor and Aldactone will give him hyperkalemia as previously. Overall prognosis is not good. The patient does not seem to be have understanding and keeps joking about his condition and wanted to go home.
[2016-06-25] MEDS: ATORVASTATIN 10 MG TAB PO SCH (21:09)
--- NOTE | 2016-06-25 21:31 | P.PN ---
Subjective Principal diagnosis: edema 11-year-old male with chronic alcoholism who has many medical troubles include alcoholic cardiomyopathy with ejection fraction of 20%, cirrhosis with recurrent ascites and chronic upper and lower extremity edema. Presents to Hospital feeling very poorly. Having significant worsening overall edema and much worsening ascites. Because of this he presented to Hospital. He relates in the past he was having paracentesis performed on an ongoing basis. But has now been several months since occurred she's had a marked worsening of his status. At presentation there is evidence of the extensive ascites, acute on chronic renal failure as well as extensive edema with changes to his skin. The patient is somewhat of a poor historian. Relates that he just feels poorly overall but does feel better after the 12 L high-volume paracentesis.he is denying fevers chills or rigors. Appetite somewhat improved today and is eating his meals better. Objective - Vital Signs Vital signs: Vital Signs Temp 97 F L 06/25/16 16:54 Pulse 104 H 06/25/16 20:44 Resp 16 06/25/16 16:54 BP 90/54 06/25/16 16:54 Pulse Ox 94 L 06/25/16 16:54 Intake & Output 06/25/16 06/25/16 06/26/16 06:59 18:59 06:59 Intake Total 50 987 Output Total 1100 200 700 Balance -1050 787 -700 Weight 105 kg Intake: IV 50 50 Piperacillin-Tazobactam 3 50 .375 gm In Dextrose/Water 1 50ml.bag @ 12.5 mls/hr IVPB Q8HR [facility] Rx#: [id number] cefTRIAXone 1,000 mg In 50 Sodium Chloride 0.9% 50 ml @ 100 mls/hr IVPB Q24HR [facility] Rx#:[id number] Oral 937 Output: Urine 1100 200 700 Other: Voiding Method Indwelling Catheter Indwelling Catheter - Exam 71-year-old male doing very poorly due to his chronic alcoholism. HEENT: Mildly icteric conjunctiva are pink and moist nasal mucosa grossly intact without significant lesions, there is no thrush. Dentition very poor Neck: The neck is supple without significant lymphadenopathy or thyromegaly. Lungs: Symmetrical air entry with few basilar crackles and expiratory wheezes are scattered no egophony or changes of tactile fremitus Heart: Irregular with an audible S1-S2, no S3 positive S4. 2 over 6 systolic murmur is noted without click or rub Abdomen: Positive bowel sounds soft and nontender without palpable masses or organomegaly. There was no guarding or rebound. Extremities: The upper and lower extremities show evidence of significant edema. The skin is dry and cracked with significant flaking. Evaluation there is no sticking open or weeping areas. The skin however has generalized erythema. He relates it's minimally pruritic and just feels dry. Neuro: Awake alert oriented to person place and time. Is aware that his sister in law and daughter have come to visit. He however is very slow and a poor historian - Labs CBC & Chem 7: 06/25/16 05:41 06/25/16 15:41 Labs: Abnormal Lab Results - Last 24 Hours (Table) 06/25/16 06/25/16 Range/Units 05:41 15:41 WBC 12.9 H (3.8-10.6) k/uL RBC 4.16 L (4.30-5.90) m/uL Hgb 12.9 L (13.0-17.5) gm/dL RDW 16.5 H (11.5-15.5) % Neutrophils # 10.7 H (1.3-7.7) k/uL Lymphocytes # 0.6 L (1.0-4.8) k/uL Sodium 136 L (137-145) mmol/L Chloride 92 L (98-107) mmol/L Carbon Dioxide 33 H (22-30) mmol/L BUN 42 H (9-20) mg/dL Creatinine 1.29 H (0.66-1.25) mg/dL Glucose 112 H (74-99) mg/dL Microbiology - Last 24 Hours (Table) 06/23/16 13:45 Gram Stain - Preliminary Ascites Fluid Body Fluid Culture - Preliminary Laboratory Results WBC 12.9 k/uL (3.8-10.6) H 06/25/16 05:41 RBC 4.16 m/uL (4.30-5.90) L 06/25/16 05:41 Hgb 12.9 gm/dL (13.0-17.5) L 06/25/16 05:41 Hct 39.6 % (39.0-53.0) 06/25/16 05:41 MCV 95.3 fL (80.0-100.0) 06/25/16 05:41 MCH 31.1 pg (25.0-35.0) 06/25/16 05:41 MCHC 32.6 g/dL (31.0-37.0) 06/25/16 05:41 RDW 16.5 % (11.5-15.5) H 06/25/16 05:41 Plt Count 225 k/uL (150-450) 06/25/16 05:41 Neutrophils % 84 % 06/25/16 05:41 Lymphocytes % 5 % 06/25/16 05:41 Monocytes % 8 % 06/25/16 05:41 Eosinophils % 2 % 06/25/16 05:41 Basophils % 0 % 06/25/16 05:41 Neutrophils # 10.7 k/uL (1.3-7.7) H 06/25/16 05:41 Lymphocytes # 0.6 k/uL (1.0-4.8) L 06/25/16 05:41 Monocytes # 1.0 k/uL (0-1.0) 06/25/16 05:41 Eosinophils # 0.2 k/uL (0-0.7) 06/25/16 05:41 Basophils # 0.0 k/uL (0-0.2) 06/25/16 05:41 Hypochromasia Slight 06/25/16 05:41 Poikilocytosis Slight 06/25/16 05:41 Anisocytosis Slight 06/25/16 05:41 Macrocytosis Slight 06/24/16 05:45 PT 14.6 sec (9.0-12.0) H 06/23/16 05:51 INR 1.5 (<1.1) 06/23/16 05:51 APTT 50.9 sec (22.0-30.0) H 06/22/16 02:24 Sodium 136 mmol/L (137-145) L 06/25/16 15:41 Potassium 4.4 mmol/L (3.5-5.1) 06/25/16 15:41 Chloride 92 mmol/L (98-107) L 06/25/16 15:41 Carbon Dioxide 33 mmol/L (22-30) H 06/25/16 15:41 Anion Gap 11 mmol/L 06/25/16 15:41 BUN 42 mg/dL (9-20) H 06/25/16 15:41 Creatinine 1.29 mg/dL (0.66-1.25) H 06/25/16 15:41 Est GFR (MDRD) Af Amer >60 (>60 ml/min/1.73 sqM) 06/25/16 15:41 Est GFR (MDRD) Non-Af 55 (>60 ml/min/1.73 sqM) 06/25/16 15:41 Glucose 112 mg/dL (74-99) H 06/25/16 15:41 Calcium 8.4 mg/dL (8.4-10.2) 06/25/16 15:41 Phosphorus 4.0 mg/dL (2.5-4.5) 06/21/16 18:08 Magnesium 2.3 mg/dL (1.6-2.3) 06/23/16 05:51 Total Bilirubin 1.3 mg/dL (0.2-1.3) 06/23/16 05:51 AST 28 U/L (17-59) 06/23/16 05:51 ALT 32 U/L (21-72) 06/23/16 05:51 Alkaline Phosphatase 155 U/L (38-126) H 06/23/16 05:51 Ammonia 23 umol/L (<30) 06/23/16 05:51 Total Creatine Kinase 125 U/L (55-170) 06/21/16 18:08 CK-MB (CK-2) 10.0 ng/mL (0.0-2.4) H* 06/21/16 18:08 CK-MB (CK-2) Rel Index 8.0 06/21/16 18:08 Troponin I 0.052 ng/mL (0.000-0.034) H* 06/22/16 08:20 NT-Pro-B Natriuret Pep 05335 pg/mL 06/21/16 18:08 Total Protein 6.7 g/dL (6.3-8.2) 06/23/16 05:51 Albumin 3.5 g/dL (3.5-5.0) 06/23/16 05:51 Tumor Marker AFP 2.3 ng/mL (0.0-7.9) 06/23/16 09:27 TSH 11.000 mIU/L (0.465-4.680) H 06/22/16 08:20 Free T4 1.33 ng/dL (0.78-2.19) 06/22/16 08:20 Urine Color Yellow 06/22/16 00:00 Urine Appearance Clear (Clear) 06/22/16 00:00 Urine pH 5.0 (5.0-8.0) 06/22/16 00:00 Ur Specific Hoagland 1.011 (1.001-1.035) 06/22/16 00:00 Urine Protein Trace (Negative) H 06/22/16 00:00 Urine Glucose (UA) Negative (Negative) 06/22/16 00:00 Urine Ketones Negative (Negative) 06/22/16 00:00 Urine Blood Negative (Negative) 06/22/16 00:00 Urine Nitrate Negative (Negative) 06/22/16 00:00 Urine Bilirubin Negative (Negative) 06/22/16 00:00 Urine Urobilinogen 3.0 mg/dL (<2.0) 06/22/16 00:00 Ur Leukocyte Esterase Negative (Negative) 06/22/16 00:00 Fluid Source Peritoneal 06/23/16 13:45 Fluid Appearance Clear 06/23/16 13:45 Fluid RBC 325 /uL 06/23/16 13:45 Fluid Nucleated Cells 65 /uL 06/23/16 13:45 Fluid Polynuclear WBCs 28 % 06/23/16 13:45 Fluid Mononuclear WBCs 72 % 06/23/16 13:45 Fluid Comment Few Mesothelial 06/23/16 13:45 Vancomycin Trough 21.0 ug/mL 06/23/16 19:16 Hepatitis A IgM Ab NEGATIVE 06/23/16 05:51 Hep Bs Antigen Negative 06/23/16 05:51 Hep B Core IgM Ab NEGATIVE 06/23/16 05:51 Hep C IgG Ab Negative (Negative) 06/23/16 05:51 Microbiology 06/23/16 13:45 Ascites Fluid Gram Stain - Preliminary 06/23/16 13:45 Ascites Fluid Body Fluid Culture - Preliminary Assessment and Plan (1) Bilateral lower leg cellulitis Narrative/Plan: 71-year-old male presents to Hospital with worsening of his overall status especially of his ascites and the effects was having on him. Because of the been quite sometime since his last paracentesis sought care for this. He is now status post a high-volume 12 L paracentesis and he relates he feels considerably better. Still feels a bit bloated. He has been seen by nephrology because of his acute renal failure concerns of the hepatorenal syndrome. Fortunately showing some slight improvement today. He has hypoalbuminemia, alcoholism and significant chronic edema. This is cause significant changes to his skin which is resulted in the very dried cracking appearance. At this time local skin care with moisturizer should be utilize Silvadene is being applied and is reasonable and can be wrapped into place of the lower extremities. He been on Aldactone that is now discontinued. The patient did have a paracentesis and that fluid has been sent to the laboratory. While cultures are pending antibiotic therapy has begun. When utilize ceftriaxone which will give us coverage for both infection of the peritoneal cavity as well as difficulties with his skin. If he becomes febrile blood cultures will be helpful. Overall the patient has quite a poor prognosis. seems to doing well with the current antibiotic therapy Peritoneal culture is negative so far.will likely need some follow-up therapy for the very dry skin Status: Acute (2) Alcoholic liver disease Status: Chronic (3) Leukocytosis Status: Acute
[2016-06-26] MEDS: IPRATROPIUM-ALBUTEROL 3 ML NEB INHALATION PRN (06:15)
[2016-06-26] MEDS: METOPROLOL TARTRATE 12.5 MG TAB PO SCH (06:16)
[2016-06-26 06:18] LABS: Anisocytosis Slight; Basophils # (A) 0.1 k/uL (0-0.2); Basophils % (A) 1 %; CH 30.8; CHCM 32.2; Eosinophils # (A) 0.2 k/uL (0-0.7); Eosinophils % (A) 1 %; HCT 40.4 % (39.0-53.0); HDW 3.41; HGB 12.7 gm/dL (13.0-17.5); Hypochromasia Moderate; Luc # (Auto) 0.15; Luc % (Auto) 2; Lymphocytes # (A) 0.4 k/uL (1.0-4.8); Lymphocytes % (A) 4 %; MCH 30.5 pg (25.0-35.0); MCHC 31.5 g/dL (31.0-37.0); MCV 96.8 fL (80.0-100.0); Macrocytosis Slight; Mean Platelet Volume 7.8; Monocytes # (A) 0.7 k/uL (0-1.0); Monocytes % (A) 7 %; Neutrophils # (A) 8.9 k/uL (1.3-7.7); Neutrophils % (A) 86 %; Poikilocytosis Slight; RBC 4.17 m/uL (4.30-5.90); RDW 16.7 % (11.5-15.5); WBC 10.3 k/uL (3.8-10.6); WBC (Perox) 10.93
[2016-06-26 06:34] LABS: Anion Gap 9 mmol/L; Blood Urea Nitrogen 38 mg/dL (9-20); Calcium 8.8 mg/dL (8.4-10.2); Carbon Dioxide 32 mmol/L (22-30); Chloride 95 mmol/L (98-107); Glucose 110 mg/dL (74-99); Non-African American GFR(MDRD) >60 (>60 ml/min/1.73 sqM); Potassium 4.4 mmol/L (3.5-5.1); Sodium 136 mmol/L (137-145)
[2016-06-26] MEDS: BUDESONIDE 1 MG/2 ML NEBU INHALATION SCH ×2 (07:44→20:15)
[2016-06-26] MEDS: FORMOTEROL FUMARATE 20 MCG/2 ML NEBU INHALATION SCH ×2 (07:44→20:15)
[2016-06-26] MEDS: IPRATROPIUM-ALBUTEROL 3 ML NEB INHALATION SCH ×4 (07:58→20:15)
[2016-06-26] MEDS: DIGOXIN 125 MCG TAB PO SCH (08:34)
[2016-06-26] MEDS: NICOTINE 21MG/24HR PATCH TRANSDERM SCH (08:35)
[2016-06-26] MEDS ORDERED: LISINOPRIL 2.5 MG TAB PO SCH (09:00)
[2016-06-26] MEDS ORDERED: FUROSEMIDE 40 MG TAB PO SCH (09:00)
[2016-06-26] MEDS ORDERED: SPIRONOLACTONE 25 MG TAB PO SCH (09:00)
--- NOTE | 2016-06-26 11:11 | P.PN ---
Rosamaria Becerra is a 71-year-old male with acute kidney injury secondary to likely compartment syndrome from tight ascites. He had paracentesis 12 L were taken off dated 06/23/2016. His urine output picked up. He was given albumin 25 g twice once before and once after the tap. Since then although subjectively he is doing well, his ascites is recovering rapidly. On yesterday 06/25/2016 Lasix was resumed. This morning he is feeling fairly well. Has a good appetite. Denies any cough fever chills abdominal pain. Abdomen remains distended. His urine output is 1356 this morning with Lasix 40 mg by mouth daily. Also this morning on 06/26/2016 he was started on Aldactone. He did have significant hyperkalemia with potassium of 6.1 a few days ago. 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 Additionally he has possible pneumonia on the right lower lung zone. Objective - Vital Signs Vital signs: Vital Signs Temp 97.1 F L 06/26/16 10:00 Pulse 112 H 06/26/16 10:00 Resp 20 06/26/16 10:00 BP 112/64 06/26/16 10:00 Pulse Ox 92 L 06/26/16 10:00 Intake & Output 06/25/16 06/26/16 06/26/16 18:59 06:59 18:59 Intake Total 987 400 298 Output Total 200 1150 Balance 787 -750 298 Intake: IV 50 cefTRIAXone 1,000 mg In 50 Sodium Chloride 0.9% 50 ml @ 100 mls/hr IVPB Q24HR [facility] Rx#:[id number] Oral 937 400 298 Output: Urine 200 1150 Other: Voiding Method Indwelling Catheter Indwelling Catheter Indwelling Catheter # Bowel Movements 1 On examination he is awake alert oriented A chin exam no JVP neck is supple no facial asymmetry Lungs are significant for bilateral wheezing with good air entry no dullness percussion Heart sounds are unremarkable no murmur rub gallop Abdomen is distended and moderate ascites is present Extremity exam was minimal edema. With skin erythema. Neurologically awake alert oriented no asterixis. - Labs CBC & Chem 7: 06/26/16 06:00 06/26/16 06:00 Labs: Abnormal Lab Results - Last 24 Hours (Table) 06/25/16 06/26/16 06/26/16 Range/Units 15:41 06:00 06:00 RBC 4.17 L (4.30-5.90) m/uL Hgb 12.7 L (13.0-17.5) gm/dL RDW 16.7 H (11.5-15.5) % Neutrophils # 8.9 H (1.3-7.7) k/uL Lymphocytes # 0.4 L (1.0-4.8) k/uL Sodium 136 L 136 L (137-145) mmol/L Chloride 92 L 95 L (98-107) mmol/L Carbon Dioxide 33 H 32 H (22-30) mmol/L BUN 42 H 38 H (9-20) mg/dL Creatinine 1.29 H (0.66-1.25) mg/dL Glucose 112 H 110 H (74-99) mg/dL Microbiology - Last 24 Hours (Table) 06/23/16 13:45 Gram Stain - Preliminary Ascites Fluid Body Fluid Culture - Preliminary Assessment and Plan Plan: Impression. 1. Acute kidney injury secondary to compartment syndrome with tight ascites. Creatinine 1.27 on 06/21/2016, went up up to 1.4 and further up to 1.48 on 04/2017 and is is down to 1.39 after the tap off 12 L of ascites dated 2016. And creatinine this morning is improved to 1.19. Urine output is moderate on 40 Lasix by mouth. Additionally he is started on Aldactone. First dose will be today. 2. Possible chronic kidney disease but no previous creatinines available etiology could be chronic liver disease. 3. Severe ascites status post paracentesis of 12 L dated 06/23/2016. Vital signs are stable. Ascites is the rapidly reaccumulating. 4. History of liver cirrhosis for the last 1 year with ascites needing frequent paracentesis. Last paracentesis before this was supposedly 06/18/2016. Labs dated 06/23/2016 Bilirubin is 1.3 AST and AST are normal PT/INR is 1.5 and PTT is 50.9. Albumin is 3.5 and ammonia is 23. 5. Mild hyponatremia secondary to chronic liver disease and acute kidney injury. Sodium is 136 6. Hyperkalemia with potassium of 6.1, improved to 5.3 06/23/2016 and down to 4.4 this morning . Etiology is Aldactone. He was off of it, has been resumed on 06/26/2016 today Recommendation. 1. Maintain current diuretic regimen of Lasix 40 mg po. 2. He is on Aldactone as of this morning and because of previous hyperkalemia he will need to have extremely close watch of his electrolytes. 3. He might need more Lasix but because of the Aldactone was just watch and see how he responds.
--- NOTE | 2016-06-26 11:50 | P.PN ---
Subjective Principal diagnosis: CHF/cardiomyopathy This is a pleasant 71-year-old gentleman with a past medical history significant for alcohol abuse, nicotine abuse, cardiomyopathy, chronic atrial fib ablation, COPD, chronic kidney disease, and multiple comorbid conditions who was admitted to the hospital with fluid overload and evidence of congestive heart failure. Initially he was started on Lasix IV without significant improvement in the symptoms. He was found to have a site this and he underwent paracentesis with significant improvement in the shortness of breath. He underwent an echocardiogram which showed severe cardiomyopathy with an ejection fraction off 25%. Hemodynamically, he continues to be stable with a slightly uncontrolled heart rates. The blood pressure has been marginal. I will continue the current medical treatment. Continue monitor the kidney function and electrolytes. If the patient is not going to have any other procedure I would consider starting him on anticoagulation. Objective - Vital Signs Vital signs: Vital Signs Temp 97.1 F L 06/26/16 10:00 Pulse 118 H 06/26/16 11:36 Resp 20 06/26/16 10:00 BP 112/64 06/26/16 10:00 Pulse Ox 92 L 06/26/16 10:00 Intake & Output 06/25/16 06/26/16 06/26/16 18:59 06:59 18:59 Intake Total 987 400 298 Output Total 200 1150 Balance 787 -750 298 Intake: IV 50 cefTRIAXone 1,000 mg In 50 Sodium Chloride 0.9% 50 ml @ 100 mls/hr IVPB Q24HR [facility] Rx#:[id number] Oral 937 400 298 Output: Urine 200 1150 Other: Voiding Method Indwelling Catheter Indwelling Catheter Indwelling Catheter # Bowel Movements 1 - Constitutional General appearance: Present: no acute distress - Labs CBC & Chem 7: 06/26/16 06:00 06/26/16 06:00 Labs: Abnormal Lab Results - Last 24 Hours (Table) 06/25/16 06/26/16 06/26/16 Range/Units 15:41 06:00 06:00 RBC 4.17 L (4.30-5.90) m/uL Hgb 12.7 L (13.0-17.5) gm/dL RDW 16.7 H (11.5-15.5) % Neutrophils # 8.9 H (1.3-7.7) k/uL Lymphocytes # 0.4 L (1.0-4.8) k/uL Sodium 136 L 136 L (137-145) mmol/L Chloride 92 L 95 L (98-107) mmol/L Carbon Dioxide 33 H 32 H (22-30) mmol/L BUN 42 H 38 H (9-20) mg/dL Creatinine 1.29 H (0.66-1.25) mg/dL Glucose 112 H 110 H (74-99) mg/dL Microbiology - Last 24 Hours (Table) 06/23/16 13:45 Gram Stain - Preliminary Ascites Fluid Body Fluid Culture - Preliminary Assessment and Plan Plan: Assessment #1 liver cirrhosis #2 congestive heart failure #3 severe cardiomyopathy #4 chronic atrial fibrillation #5 alcohol abuse #6 COPD #7 multiple comorbid conditions you Plan #1 increase the dose of metoprolol for better heart rate control and continue watch the blood pressure #2 continue the current medical treatment with lisinopril and aldactone #3 consider anticoagulation if he is not going to have any other procedure
[2016-06-26] MEDS ORDERED: METOPROLOL TARTRATE 12.5 MG TAB PO ONE (12:15)
--- NOTE | 2016-06-26 13:10 | P.PN ---
Subjective This is a 71-year-old gentleman who follows with Dr. Andersen as his primary care physician. He has a past medical history of hyperlipidemia, hypertension, atrial fibrillation, congestive heart failure, DVT and alcoholic liver disease. He has had paracentesis in the past, most recently 5-6 months ago at [facility]. He also has a 50 pack per day smoking history and he only utilizes pro-air in the outpatient setting. He is oxygen dependent at home, usually 3-4 L. The patient appears chronically ill. He has significant lower extremity edema with weeping and redness with suspected cellulitis. He has significant abdominal distention. He is also found to be in atrial fibrillation with a rapid ventricular response. His proBNP level was greater than 36,000, TSH 11.0. His chest x-ray does reveal a right basilar pleural effusion with associated atelectasis and possible infiltrate. Abdominal ultrasound is pending. He may require paracentesis on this admission. Presently he is seen in the selective care unit. He is awake and alert and slight respiratory distress. He is maintaining O2 saturations in the low 90s on 10 L of high flow nasal cannula. His been initiated on Lasix drip currently at 10 mg per hour. He is also on Aldactone. We will continue with bronchodilators and antibiotics in the form of vancomycin. I would also go ahead and add Zosyn in conjunction with vancomycin regarding the right lower lobe pulmonary infiltrates/pneumonia. On 06/23/2016, the patient is being seen in follow-up. He is still on IV Lasix drip at 10 mg an hour. His urine output is however rather slow and is producing approximately 2 70 mL over the past 12 hours. As such as urine output is somewhat limited. His abdomen remains quite distended and he will be undergoing a therapeutic paracentesis this morning. This will be done by interventional radiology. The patient also has a right lower lobe consolidation for which she is still on a combination of Zosyn and vancomycin. He has a congested cough. No leukocytosis. No fever. His renal function is impaired with a creatinine of 1.48. Potassium level is at 5.3 and the patient is still on Aldactone. Hemoglobin is 11.8. On 06/24/2016, the patient is doing much better. His chest x-ray from today shows improvement in the volume status and the right lower lobe pulmonary infiltration. The patient underwent a large volume paracentesis and a total of 12 L of ascitic fluid was drained from the abdomen. Subsequently his condition improved. His abdomen is less tense on today's evaluation. He is less short of breath. No cough or sputum production. No chest that is no wheezing. No other complaints otherwise for now. He still has some edema in lower extremity is bilaterally. No chills. No night sweats. He is on empiric antibiotic coverage with IV Zosyn. On 06/25/2016 the patient is being seen in follow-up. He is doing better. His FiO2 has been cut down to 5 L of oxygen by nasal cannula and his saturation is order of 94-95%. His baseline oxygen requirement is at 3 L/m nasal cannula. His abdomen is less distended. He underwent a large volume paracentesis yesterday. He is responding to oral Lasix and there is a negative fluid balance of more than 1 L over the past 24 hours. No chest pain. No cough or sputum production. Antibiotics have been switched to IV Rocephin per IDs recommendations. On 06/26/2016 the patient is doing well. He still diuresing. He is on high flow oxygen at 5 L. No respiratory distress. No abdominal distention. No change in mental status. No other complaints otherwise. Objective - Vital Signs Vital signs: Vital Signs Temp 97.1 F L 06/26/16 10:00 Pulse 118 H 06/26/16 11:36 Resp 20 06/26/16 10:00 BP 112/64 06/26/16 10:00 Pulse Ox 92 L 06/26/16 10:00 Intake & Output 06/25/16 06/26/16 06/26/16 18:59 06:59 18:59 Intake Total 987 400 298 Output Total 200 1150 400 Balance 477 -750 -102 Intake: IV 50 cefTRIAXone 1,000 mg In 50 Sodium Chloride 0.9% 50 ml @ 100 mls/hr IVPB Q24HR [facility] Rx#:[id number] Oral 937 400 298 Output: Urine 200 1150 400 Other: Voiding Method Indwelling Catheter Indwelling Catheter Indwelling Catheter # Bowel Movements 1 - Exam GENERAL EXAM: Alert, comfortable at rest in no acute distress. HEAD: Normocephalic. EYES: Normal reaction of pupils, equal size. NOSE: Clear with pink turbinates. THROAT: No erythema or exudates. NECK: No masses, positive JVD. CHEST: No chest wall deformity. LUNGS: Equal air entry with crackles in the bilateral posterior bases, more so on the right. CVS: S1 and S2 normal with no audible murmurs, regular rhythm. ABDOMEN: Less Distended compared to yesterday and there has been marked improvement in the ascitic fluid, positive fluid wave. Normal bowel sounds, no guarding or rigidity. Extremities: There is 2-3+ lower extremity peripheral edema. Redness and changes of chronic venous stasis. Peripheral pulses are intact. - Labs CBC & Chem 7: 06/26/16 06:00 06/26/16 06:00 Labs: Abnormal Lab Results - Last 24 Hours (Table) 06/25/16 06/26/16 06/26/16 Range/Units 15:41 06:00 06:00 RBC 4.17 L (4.30-5.90) m/uL Hgb 12.7 L (13.0-17.5) gm/dL RDW 16.7 H (11.5-15.5) % Neutrophils # 8.9 H (1.3-7.7) k/uL Lymphocytes # 0.4 L (1.0-4.8) k/uL Sodium 136 L 136 L (137-145) mmol/L Chloride 92 L 95 L (98-107) mmol/L Carbon Dioxide 33 H 32 H (22-30) mmol/L BUN 42 H 38 H (9-20) mg/dL Creatinine 1.29 H (0.66-1.25) mg/dL Glucose 112 H 110 H (74-99) mg/dL Microbiology - Last 24 Hours (Table) 06/23/16 13:45 Gram Stain - Preliminary Ascites Fluid Body Fluid Culture - Preliminary Assessment and Plan Plan: Plan: Impression: #1 Dyspnea, multifactorial in a patient found to have significant abdominal ascites, acute exacerbation of chronic obstructive pulmonary disease complicated by right lower lobe atelectasis/infiltrate, acute exacerbation of suspected diastolic congestive heart failure, atrial fibrillation with rapid ventricular response. The patient is awaiting a diagnostic and neuropathic paracentesis this morning. Meanwhile he is right lung pneumonia is also being treated with a combination of Zosyn and vancomycin. There is persistent infiltration of the right lung base along with possibly development of a small right-sided pleural effusion. On 06/24/2016, the patient is status post large volume paracentesis. His all her status improved significantly. His abdomen is less tense. Less short of breath. We are in the process of weaning his FiO2 down and currently is on 8 L/ m nasal cannula and his saturations around 97% and I think is more room for improvement. On 06/25/2016, the patient is still quite stable and his FiO2 is been gradually weaned down to 5 L of oxygen by nasal cannula. No major respiratory distress. He is on IV Rocephin. He is on oral Lasix. He is diuresing well and he is producing adequate amount of urine output and is a negative fluid balance. On 06/26/2016, the patient remains essentially stable on high flow oxygen at 5 L. No signs of any respiratory distress. He still diuresing. Renal function stable creatinine of 1.1. #2 Acute exacerbation of suspected chronic obstructive pulmonary disease. #3 renal failure with a creatinine of 1.4. On 06/24/2016, the renal function remains stable on diuretics in the creatinine remains stable at 1.39. On 06/26/2016, the renal function improved creatinine is down to 1.1 and the patient is still on Lasix. #4 Basilar pleural effusion with associated atelectasis/infiltrate. #5 ascites secondary to alcoholic liver disease, status post large void paracentesis #6 Daily alcohol use. #7 Atrial fibrillation with rapid ventricular response, not anticoagulated in the outpatient setting. #8 Chronic lower extremity edema or #9 Acute on chronic suspected diastolic versus systolic congestive heart failure. #10 Hyperlipidemia. #11 History of DVT. #12 Hyperlipidemia. #13 Coronary artery disease. #14 Poor overall functional performance secondary to the above-mentioned multiple comorbidities. #15 nicotine addiction/smoking is the patient carries more than [id number] smoking history. Plan Continue oral Lasix. Keep the patient in a negative fluid balance. Cut down the salt intake. The Fluid Intake. Monitor the Renal Function. Wean down the FiO2 As Tolerated. Sit up on a Chair. We'll Continue to Follow. No additional recommendations from a weight standpoint. Repeat one final chest x- ray by Tuesday.
--- NOTE | 2016-06-26 20:06 | PN ---
DATE OF SERVICE: 06/26/2016 PRESENTING COMPLAINT: Short of breath. INTERVAL HISTORY: This patient admitted with alcoholic cirrhosis and severe ascites, status post paracentesis, 4 L removed. Abdominal distention has occurred again. Patient also acute renal failure, COPD, pneumonia, severe cellulitis. Patient's abdomen is more distended. Patient is again losing his appetite. Yesterday, Lasix was added and fluid restriction was done. Review of systems done for constitutional, cardiovascular, GI, pulmonary; dermatologic; relevant findings as above. The patient does feel really weak and tired. Current medications are reviewed that include: 1. IV ceftriaxone. 2. Silvadene cream. On examination, temperature 97.7, pulse 108, respirations 20, blood pressure 102/50, pulse ox 91% on 4L. GENERAL APPEARANCE: Sitting up, tired-appearing. EYES: Pupils equal. Conjunctivae normal. NECK: JVD possibly raised. RESPIRATORY: Effort increased. LUNGS: Decreased breath sounds and crackles at bases. CARDIOVASCULAR: Heart sounds irregular. Edema present. ABDOMEN: More distended. Liver, spleen not palpable. PSYCHIATRY: Awake, answering questions, tired-appearing. DERMATOLOGICAL: Diffuse light-headedness, some improvement. Dry skin also present. INVESTIGATIONS: White count 10.3, hemoglobin 12.7. Potassium 4.4, BUN 38, creatinine 1.19. ASSESSMENT: 1. Acute on chronic congestive heart failure exacerbation from systolic dysfunction, could be underlying alcoholic cardiomyopathy; ejection fraction is 20% to 25%. 2. Acute respiratory failure, hypoxic, on admission, from underlying chronic obstructive pulmonary disease, slow to respond. 3. Acute chronic obstructive pulmonary disease exacerbation in a smoker. 4. Chronic nicotine dependence. Patient is an active cigarette smoker. 5. Persistent atrial fibrillation. Patient not felt to be a candidate for anticoagulation because of prolonged pro-time from alcoholism. Overall poor functional status. High risk of falls. 6. Acute on chronic renal failure, probably multifactorial. 7. Chronic alcoholism. 8. Troponin leak ( ) mismatch. 9. Acute severe cellulitis in all 4 extremities. 10. Tense ascites on presentation from alcoholic cirrhosis, status post 2 L being removed. Patient's ascites has now come back again, getting worse. 11. Possible acute on chronic cor pulmonale. 12. Chronic obstructive pulmonary disease. 13. Alcoholic liver disease, cirrhosis. 14. Hyperkalemia in the setting of renal failure on presentation. PLAN: Patient was put on fluid restriction yesterday. Overall prognosis remains guarded. Will have the patient to be tapped again by Interventional Radiology. I talked with the patient. Overall prognosis is rather guarded. Continue current medication and treatment plan. Will also increase patient's Lasix and hold off DANIELA inhibitor to get a better blood pressure ahead. Will also hold off Lipitor right now because of muscle weakness. Overall prognosis remains to be guarded.
[2016-06-26] MEDS: METOPROLOL TARTRATE 25 MG TAB PO SCH (21:45)
[2016-06-26] MEDS: SPIRONOLACTONE 25 MG TAB PO SCH (21:47)
[2016-06-26] MEDS: FUROSEMIDE 40 MG TAB PO SCH (21:47)
--- NOTE | 2016-06-26 22:27 | P.PN ---
Subjective Principal diagnosis: edema 11-year-old male with chronic alcoholism who has many medical troubles include alcoholic cardiomyopathy with ejection fraction of 20%, cirrhosis with recurrent ascites and chronic upper and lower extremity edema. Presents to Hospital feeling very poorly. Having significant worsening overall edema and much worsening ascites. Because of this he presented to Hospital. He relates in the past he was having paracentesis performed on an ongoing basis. But has now been several months since occurred she's had a marked worsening of his status. At presentation there is evidence of the extensive ascites, acute on chronic renal failure as well as extensive edema with changes to his skin. The patient is somewhat of a poor historian. Relates that he just feels poorly overall but does feel better after the 12 L high-volume paracentesis.he is denying fevers chills or rigors. Appetite somewhat improved today and is eating his meals better. Objective - Vital Signs Vital signs: Vital Signs Temp 98.3 F 06/26/16 17:51 Pulse 110 H 06/26/16 17:51 Resp 20 06/26/16 17:51 BP 114/62 06/26/16 17:51 Pulse Ox 91 L 06/26/16 17:51 Intake & Output 06/26/16 06/26/16 06/27/16 06:59 18:59 06:59 Intake Total 400 1023 Output Total 1150 750 Balance -750 273 Intake: IV 100 cefTRIAXone 1,000 mg In 100 Sodium Chloride 0.9% 50 ml @ 100 mls/hr IVPB Q24HR [facility] Rx#:[id number] Oral 400 923 Output: Urine 1150 750 Other: Voiding Method Indwelling Catheter Indwelling Catheter # Bowel Movements 1 - Exam 71-year-old male doing very poorly due to his chronic alcoholism. HEENT: Mildly icteric conjunctiva are pink and moist nasal mucosa grossly intact without significant lesions, there is no thrush. Dentition very poor Neck: The neck is supple without significant lymphadenopathy or thyromegaly. Lungs: Symmetrical air entry with few basilar crackles and expiratory wheezes are scattered no egophony or changes of tactile fremitus Heart: Irregular with an audible S1-S2, no S3 positive S4. 2 over 6 systolic murmur is noted without click or rub Abdomen: Positive bowel sounds soft and nontender without palpable masses or organomegaly. There was no guarding or rebound. Extremities: The upper and lower extremities show evidence of significant edema. The skin is dry and cracked with significant flaking. Evaluation there are no open or weeping areas. The skin however has generalized erythema. He relates it's minimally pruritic and just feels dry. Neuro: Awake alert oriented to person place and time. Is aware that his sister in law and daughter have come to visit. He however is very slow and a poor historian - Labs CBC & Chem 7: 06/26/16 06:00 06/26/16 06:00 Labs: Abnormal Lab Results - Last 24 Hours (Table) 06/26/16 06/26/16 Range/Units 06:00 06:00 RBC 4.17 L (4.30-5.90) m/uL Hgb 12.7 L (13.0-17.5) gm/dL RDW 16.7 H (11.5-15.5) % Neutrophils # 8.9 H (1.3-7.7) k/uL Lymphocytes # 0.4 L (1.0-4.8) k/uL Sodium 136 L (137-145) mmol/L Chloride 95 L (98-107) mmol/L Carbon Dioxide 32 H (22-30) mmol/L BUN 38 H (9-20) mg/dL Glucose 110 H (74-99) mg/dL Microbiology - Last 24 Hours (Table) 06/23/16 13:45 Gram Stain - Preliminary Ascites Fluid Body Fluid Culture - Preliminary Laboratory Results WBC 10.3 k/uL (3.8-10.6) 06/26/16 06:00 RBC 4.17 m/uL (4.30-5.90) L 06/26/16 06:00 Hgb 12.7 gm/dL (13.0-17.5) L 06/26/16 06:00 Hct 40.4 % (39.0-53.0) 06/26/16 06:00 MCV 96.8 fL (80.0-100.0) 06/26/16 06:00 MCH 30.5 pg (25.0-35.0) 06/26/16 06:00 MCHC 31.5 g/dL (31.0-37.0) 06/26/16 06:00 RDW 16.7 % (11.5-15.5) H 06/26/16 06:00 Plt Count 228 k/uL (150-450) 06/26/16 06:00 Neutrophils % 86 % 06/26/16 06:00 Lymphocytes % 4 % 06/26/16 06:00 Monocytes % 7 % 06/26/16 06:00 Eosinophils % 1 % 06/26/16 06:00 Basophils % 1 % 06/26/16 06:00 Neutrophils # 8.9 k/uL (1.3-7.7) H 06/26/16 06:00 Lymphocytes # 0.4 k/uL (1.0-4.8) L 06/26/16 06:00 Monocytes # 0.7 k/uL (0-1.0) 06/26/16 06:00 Eosinophils # 0.2 k/uL (0-0.7) 06/26/16 06:00 Basophils # 0.1 k/uL (0-0.2) 06/26/16 06:00 Hypochromasia Moderate 06/26/16 06:00 Poikilocytosis Slight 06/26/16 06:00 Anisocytosis Slight 06/26/16 06:00 Macrocytosis Slight 06/26/16 06:00 PT 14.6 sec (9.0-12.0) H 06/23/16 05:51 INR 1.5 (<1.1) 06/23/16 05:51 APTT 50.9 sec (22.0-30.0) H 06/22/16 02:24 Sodium 136 mmol/L (137-145) L 06/26/16 06:00 Potassium 4.4 mmol/L (3.5-5.1) 06/26/16 06:00 Chloride 95 mmol/L (98-107) L 06/26/16 06:00 Carbon Dioxide 32 mmol/L (22-30) H 06/26/16 06:00 Anion Gap 9 mmol/L 06/26/16 06:00 BUN 38 mg/dL (9-20) H 06/26/16 06:00 Creatinine 1.19 mg/dL (0.66-1.25) 06/26/16 06:00 Est GFR (MDRD) Af Amer >60 (>60 ml/min/1.73 sqM) 06/26/16 06:00 Est GFR (MDRD) Non-Af >60 (>60 ml/min/1.73 sqM) 06/26/16 06:00 Glucose 110 mg/dL (74-99) H 06/26/16 06:00 Calcium 8.8 mg/dL (8.4-10.2) 06/26/16 06:00 Phosphorus 4.0 mg/dL (2.5-4.5) 06/21/16 18:08 Magnesium 2.3 mg/dL (1.6-2.3) 06/23/16 05:51 Total Bilirubin 1.3 mg/dL (0.2-1.3) 06/23/16 05:51 AST 28 U/L (17-59) 06/23/16 05:51 ALT 32 U/L (21-72) 06/23/16 05:51 Alkaline Phosphatase 155 U/L (38-126) H 06/23/16 05:51 Ammonia 23 umol/L (<30) 06/23/16 05:51 Total Creatine Kinase 125 U/L (55-170) 06/21/16 18:08 CK-MB (CK-2) 10.0 ng/mL (0.0-2.4) H* 06/21/16 18:08 CK-MB (CK-2) Rel Index 8.0 06/21/16 18:08 Troponin I 0.052 ng/mL (0.000-0.034) H* 06/22/16 08:20 NT-Pro-B Natriuret Pep 15069 pg/mL 06/21/16 18:08 Total Protein 6.7 g/dL (6.3-8.2) 06/23/16 05:51 Albumin 3.5 g/dL (3.5-5.0) 06/23/16 05:51 Tumor Marker AFP 2.3 ng/mL (0.0-7.9) 06/23/16 09:27 TSH 11.000 mIU/L (0.465-4.680) H 06/22/16 08:20 Free T4 1.33 ng/dL (0.78-2.19) 06/22/16 08:20 Urine Color Yellow 06/22/16 00:00 Urine Appearance Clear (Clear) 06/22/16 00:00 Urine pH 5.0 (5.0-8.0) 06/22/16 00:00 Ur Specific Lucien 1.011 (1.001-1.035) 06/22/16 00:00 Urine Protein Trace (Negative) H 06/22/16 00:00 Urine Glucose (UA) Negative (Negative) 06/22/16 00:00 Urine Ketones Negative (Negative) 06/22/16 00:00 Urine Blood Negative (Negative) 06/22/16 00:00 Urine Nitrate Negative (Negative) 06/22/16 00:00 Urine Bilirubin Negative (Negative) 06/22/16 00:00 Urine Urobilinogen 3.0 mg/dL (<2.0) 06/22/16 00:00 Ur Leukocyte Esterase Negative (Negative) 06/22/16 00:00 Fluid Source Peritoneal 06/23/16 13:45 Fluid Appearance Clear 06/23/16 13:45 Fluid RBC 325 /uL 06/23/16 13:45 Fluid Nucleated Cells 65 /uL 06/23/16 13:45 Fluid Polynuclear WBCs 28 % 06/23/16 13:45 Fluid Mononuclear WBCs 72 % 06/23/16 13:45 Fluid Comment Few Mesothelial 06/23/16 13:45 Vancomycin Trough 21.0 ug/mL 06/23/16 19:16 Hepatitis A IgM Ab NEGATIVE 06/23/16 05:51 Hep Bs Antigen Negative 06/23/16 05:51 Hep B Core IgM Ab NEGATIVE 06/23/16 05:51 Hep C IgG Ab Negative (Negative) 06/23/16 05:51 Microbiology 06/23/16 13:45 Ascites Fluid Gram Stain - Preliminary 06/23/16 13:45 Ascites Fluid Body Fluid Culture - Preliminary Assessment and Plan (1) Bilateral lower leg cellulitis Narrative/Plan: 71-year-old male presents to Hospital with worsening of his overall status especially of his ascites and the effects was having on him. Because of the been quite sometime since his last paracentesis sought care for this. He is now status post a high-volume 12 L paracentesis and he relates he feels considerably better. Still feels a bit bloated. He has been seen by nephrology because of his acute renal failure concerns of the hepatorenal syndrome. Fortunately showing some slight improvement today. He has hypoalbuminemia, alcoholism and significant chronic edema. This is cause significant changes to his skin which is resulted in the very dried cracking appearance. At this time local skin care with moisturizer should be utilize Silvadene is being applied and is reasonable and can be wrapped into place of the lower extremities. He been on Aldactone that is now discontinued. The patient did have a paracentesis and that fluid has been sent to the laboratory. While cultures are pending antibiotic therapy has begun. When utilize ceftriaxone which will give us coverage for both infection of the peritoneal cavity as well as difficulties with his skin. If he becomes febrile blood cultures will be helpful. Overall the patient has quite a poor prognosis. seems to doing well with the current antibiotic therapy Peritoneal culture is negative so far.will likely need some follow-up therapy for the very dry skin Status: Acute (2) Alcoholic liver disease Status: Chronic (3) Leukocytosis Status: Acute
[2016-06-27 05:47] LABS: Anisocytosis Slight; Basophils # (A) 0.1 k/uL (0-0.2); Basophils % (A) 1 %; CH 30.9; CHCM 32.4; Eosinophils # (A) 0.2 k/uL (0-0.7); Eosinophils % (A) 2 %; HCT 38.9 % (39.0-53.0); HDW 3.28; HGB 12.3 gm/dL (13.0-17.5); Hypochromasia Slight; Luc # (Auto) 0.15; Luc % (Auto) 2; Lymphocytes # (A) 0.5 k/uL (1.0-4.8); Lymphocytes % (A) 5 %; MCH 30.4 pg (25.0-35.0); MCHC 31.5 g/dL (31.0-37.0); MCV 96.3 fL (80.0-100.0); Macrocytosis Slight; Mean Platelet Volume 8.6; Monocytes # (A) 0.7 k/uL (0-1.0); Monocytes % (A) 8 %; Neutrophils # (A) 7.6 k/uL (1.3-7.7); Neutrophils % (A) 83 %; RBC 4.04 m/uL (4.30-5.90); RDW 16.6 % (11.5-15.5); WBC 9.2 k/uL (3.8-10.6); WBC (Perox) 9.72
[2016-06-27 05:57] LABS: Anion Gap 6 mmol/L; Blood Urea Nitrogen 39 mg/dL (9-20); Calcium 8.6 mg/dL (8.4-10.2); Carbon Dioxide 35 mmol/L (22-30); Chloride 94 mmol/L (98-107); Glucose 87 mg/dL (74-99); Non-African American GFR(MDRD) >60 (>60 ml/min/1.73 sqM); Potassium 4.6 mmol/L (3.5-5.1); Sodium 135 mmol/L (137-145)
[2016-06-27] MEDS: METOPROLOL TARTRATE 25 MG TAB PO SCH ×2 (08:03→22:01)
[2016-06-27] MEDS: FUROSEMIDE 40 MG TAB PO SCH ×2 (08:03→16:07)
[2016-06-27] MEDS: DIGOXIN 125 MCG TAB PO SCH (08:03)
[2016-06-27] MEDS: SPIRONOLACTONE 25 MG TAB PO SCH ×2 (08:03→22:00)
[2016-06-27] MEDS: NICOTINE 21MG/24HR PATCH TRANSDERM SCH (08:03)
[2016-06-27] MEDS: IPRATROPIUM-ALBUTEROL 3 ML NEB INHALATION SCH ×4 (08:23→21:01)
[2016-06-27] MEDS: BUDESONIDE 1 MG/2 ML NEBU INHALATION SCH ×2 (08:23→21:01)
[2016-06-27] MEDS: FORMOTEROL FUMARATE 20 MCG/2 ML NEBU INHALATION SCH ×2 (08:23→21:01)
--- NOTE | 2016-06-27 10:20 | P.PN ---
Rosamaria Becerra is a 71-year-old male with acute kidney injury secondary to compartment syndrome from tight ascites. He has severe cardiomyopathy ejection fraction is 20% as well as cirrhosis therefore he has 3 main organ dysfunction. His acute kidney injury improved after He had paracentesis 12 L were taken off dated 06/23/2016. His urine output picked up. He was given albumin 25 g twice once before and once after the tap. Since then although subjectively he is doing well, his ascites is reaccumulating rapidly. On 06/25/2016 Lasix was resumed at 40 mg twice a day as well as Aldactone 25 twice a day. His urine output is marginal, has been recorded as 7 and 50 mL and 350 mL for the last 2 shifts. He is on metformin 25 mg twice a day because of the atrial fibrillation and cardiomyopathy with blood pressure running in the 80s.. On exam today he has mild cough. No nausea vomiting abdomen is distended. Appetite is fair no diarrhea. He is awake and alert. . 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 Additionally he has possible pneumonia on the right lower lung zone. Objective - Vital Signs Vital signs: Vital Signs Temp 98.5 F 06/27/16 08:00 Pulse 110 H 06/27/16 08:00 Resp 19 06/27/16 08:00 BP 108/52 06/27/16 08:00 Pulse Ox 91 L 06/27/16 08:00 Intake & Output 06/26/16 06/27/16 06/27/16 18:59 06:59 18:59 Intake Total 1023 450 388 Output Total 750 350 Balance 273 100 388 Weight 104.5 kg Intake: IV 100 cefTRIAXone 1,000 mg In 100 Sodium Chloride 0.9% 50 ml @ 100 mls/hr IVPB Q24HR [facility] Rx#:[id number] Oral 923 450 388 Output: Urine 750 350 Other: Voiding Method Indwelling Catheter Indwelling Catheter Indwelling Catheter Is awake alert oriented Seems to be comfortable. HEENT exam no JVP is noted neck is supple no facial asymmetry Lungs are clear to auscultation and good air entry bilaterally normal to percussion Heart sounds are unremarkable no murmur rub gallop Abdomen is distended with moderate ascites Nontender Extremity exam was minimal to trace edema. He has scaly skin. Her graft neurologically awake alert oriented no asterixis - Labs CBC & Chem 7: 06/27/16 05:35 06/27/16 05:35 Labs: Abnormal Lab Results - Last 24 Hours (Table) 06/27/16 06/27/16 Range/Units 05:35 05:35 RBC 4.04 L (4.30-5.90) m/uL Hgb 12.3 L (13.0-17.5) gm/dL Hct 38.9 L (39.0-53.0) % RDW 16.6 H (11.5-15.5) % Lymphocytes # 0.5 L (1.0-4.8) k/uL Sodium 135 L (137-145) mmol/L Chloride 94 L (98-107) mmol/L Carbon Dioxide 35 H (22-30) mmol/L BUN 39 H (9-20) mg/dL Microbiology - Last 24 Hours (Table) 06/23/16 13:45 Gram Stain - Preliminary Ascites Fluid Body Fluid Culture - Preliminary Assessment and Plan Plan: Impression. 1. Acute kidney injury secondary to compartment syndrome. Creatinine peaked to 1.48 on 06/23/2016. Urine output and creatinine improved to 1.2 as of this morning. He is on Lasix 40 twice a day and Aldactone 25 twice a day started urine output is acceptable. 2. Possible chronic kidney disease but no previous creatinines available etiology could be chronic liver disease. 3. Severe ascites status post paracentesis of 12 L dated 06/23/2016. Vital signs are stable. Ascites is the rapidly reaccumulating. 4. History of liver cirrhosis for the last 1 year with ascites needing frequent paracentesis. Last paracentesis before this was supposedly 06/18/2016. Labs dated 06/23/2016 Bilirubin is 1.3 AST and AST are normal PT/INR is 1.5 and PTT is 50.9. Albumin is 3.5 and ammonia is 23. 5. Mild hyponatremia secondary to chronic liver disease and acute kidney injury. Sodium is 135 6. Hyperkalemia with potassium of 6.1, improved to 5.3 06/23/2016 and down to 4.4 this morning . Etiology is Aldactone. He was off of it, has been resumed on 06/26/2016. 7. Atrial fibrillation on metoprolol with low blood pressure. 8. Significant cardiac myopathy ejection fraction 20%, alcoholic etiology Recommendation. 1. Maintain current diuretic regimen of Lasix 40 mg po 2. He is on Aldactone, watch for hyperkalemia as he had experienced severe hyperkalemia. In spite of this try to maintain him on Aldactone. 3. Watch potassium closely electrolytes urine output and blood pressure 4. Discussed with him his prognosis is very poor given 3 organ dysfunction
--- NOTE | 2016-06-27 13:27 | P.PN ---
Subjective This is a 71-year-old gentleman who follows with Dr. Andersen as his primary care physician. He has a past medical history of hyperlipidemia, hypertension, atrial fibrillation, congestive heart failure, DVT and alcoholic liver disease. He has had paracentesis in the past, most recently 5-6 months ago at [facility]. He also has a 50 pack per day smoking history and he only utilizes pro-air in the outpatient setting. He is oxygen dependent at home, usually 3-4 L. The patient appears chronically ill. He has significant lower extremity edema with weeping and redness with suspected cellulitis. He has significant abdominal distention. He is also found to be in atrial fibrillation with a rapid ventricular response. His proBNP level was greater than 36,000, TSH 11.0. His chest x-ray does reveal a right basilar pleural effusion with associated atelectasis and possible infiltrate. Abdominal ultrasound is pending. He may require paracentesis on this admission. Presently he is seen in the selective care unit. He is awake and alert and slight respiratory distress. He is maintaining O2 saturations in the low 90s on 10 L of high flow nasal cannula. His been initiated on Lasix drip currently at 10 mg per hour. He is also on Aldactone. We will continue with bronchodilators and antibiotics in the form of vancomycin. I would also go ahead and add Zosyn in conjunction with vancomycin regarding the right lower lobe pulmonary infiltrates/pneumonia. On 06/23/2016, the patient is being seen in follow-up. He is still on IV Lasix drip at 10 mg an hour. His urine output is however rather slow and is producing approximately 2 70 mL over the past 12 hours. As such as urine output is somewhat limited. His abdomen remains quite distended and he will be undergoing a therapeutic paracentesis this morning. This will be done by interventional radiology. The patient also has a right lower lobe consolidation for which she is still on a combination of Zosyn and vancomycin. He has a congested cough. No leukocytosis. No fever. His renal function is impaired with a creatinine of 1.48. Potassium level is at 5.3 and the patient is still on Aldactone. Hemoglobin is 11.8. On 06/24/2016, the patient is doing much better. His chest x-ray from today shows improvement in the volume status and the right lower lobe pulmonary infiltration. The patient underwent a large volume paracentesis and a total of 12 L of ascitic fluid was drained from the abdomen. Subsequently his condition improved. His abdomen is less tense on today's evaluation. He is less short of breath. No cough or sputum production. No chest that is no wheezing. No other complaints otherwise for now. He still has some edema in lower extremity is bilaterally. No chills. No night sweats. He is on empiric antibiotic coverage with IV Zosyn. On 06/25/2016 the patient is being seen in follow-up. He is doing better. His FiO2 has been cut down to 5 L of oxygen by nasal cannula and his saturation is order of 94-95%. His baseline oxygen requirement is at 3 L/m nasal cannula. His abdomen is less distended. He underwent a large volume paracentesis yesterday. He is responding to oral Lasix and there is a negative fluid balance of more than 1 L over the past 24 hours. No chest pain. No cough or sputum production. Antibiotics have been switched to IV Rocephin per IDs recommendations. On 06/26/2016 the patient is doing well. He still diuresing. He is on high flow oxygen at 5 L. No respiratory distress. No abdominal distention. No change in mental status. No other complaints otherwise. On 06/27/2016, the patient is resting comfortably in bed. He is on 5 L of oxygen nasal cannula. Abdomen is getting again distended's slowly as the patient is recommended awaiting ascitic fluid. No nausea. No vomiting. No change in mental status. No worsening shortness of breath. No other complaints otherwise. Objective - Vital Signs Vital signs: Vital Signs Temp 98.8 F 06/27/16 12:00 Pulse 94 06/27/16 12:00 Resp 20 06/27/16 12:00 BP 100/58 06/27/16 12:00 Pulse Ox 91 L 06/27/16 12:00 Intake & Output 06/26/16 06/27/16 06/27/16 18:59 06:59 18:59 Intake Total 1023 450 588 Output Total 750 350 Balance 273 100 588 Weight 104.5 kg Intake: IV 100 cefTRIAXone 1,000 mg In 100 Sodium Chloride 0.9% 50 ml @ 100 mls/hr IVPB Q24HR [facility] Rx#:[id number] Oral 923 450 588 Output: Urine 750 350 Other: Voiding Method Indwelling Catheter Indwelling Catheter Indwelling Catheter - Exam GENERAL EXAM: Alert, comfortable at rest in no acute distress. HEAD: Normocephalic. EYES: Normal reaction of pupils, equal size. NOSE: Clear with pink turbinates. THROAT: No erythema or exudates. NECK: No masses, positive JVD. CHEST: No chest wall deformity. LUNGS: Equal air entry with crackles in the bilateral posterior bases, more so on the right. CVS: S1 and S2 normal with no audible murmurs, regular rhythm. ABDOMEN: Less Distended compared to yesterday and there has been marked improvement in the ascitic fluid, positive fluid wave. Normal bowel sounds, no guarding or rigidity. Extremities: There is 2-3+ lower extremity peripheral edema. Redness and changes of chronic venous stasis. Peripheral pulses are intact. - Labs CBC & Chem 7: 06/27/16 05:35 06/27/16 05:35 Labs: Abnormal Lab Results - Last 24 Hours (Table) 06/27/16 06/27/16 Range/Units 05:35 05:35 RBC 4.04 L (4.30-5.90) m/uL Hgb 12.3 L (13.0-17.5) gm/dL Hct 38.9 L (39.0-53.0) % RDW 16.6 H (11.5-15.5) % Lymphocytes # 0.5 L (1.0-4.8) k/uL Sodium 135 L (137-145) mmol/L Chloride 94 L (98-107) mmol/L Carbon Dioxide 35 H (22-30) mmol/L BUN 39 H (9-20) mg/dL Microbiology - Last 24 Hours (Table) 06/23/16 13:45 Gram Stain - Preliminary Ascites Fluid Body Fluid Culture - Preliminary Assessment and Plan Plan: Plan: Impression: #1 Dyspnea, multifactorial in a patient found to have significant abdominal ascites, acute exacerbation of chronic obstructive pulmonary disease complicated by right lower lobe atelectasis/infiltrate, acute exacerbation of suspected diastolic congestive heart failure, atrial fibrillation with rapid ventricular response. The patient is awaiting a diagnostic and neuropathic paracentesis this morning. Meanwhile he is right lung pneumonia is also being treated with a combination of Zosyn and vancomycin. There is persistent infiltration of the right lung base along with possibly development of a small right-sided pleural effusion. On 06/24/2016, the patient is status post large volume paracentesis. His all her status improved significantly. His abdomen is less tense. Less short of breath. We are in the process of weaning his FiO2 down and currently is on 8 L/ m nasal cannula and his saturations around 97% and I think is more room for improvement. On 06/25/2016, the patient is still quite stable and his FiO2 is been gradually weaned down to 5 L of oxygen by nasal cannula. No major respiratory distress. He is on IV Rocephin. He is on oral Lasix. He is diuresing well and he is producing adequate amount of urine output and is a negative fluid balance. On 06/26/2016, the patient remains essentially stable on high flow oxygen at 5 L. No signs of any respiratory distress. He still diuresing. Renal function stable creatinine of 1.1. On 06/27/2016, respiratory status remains stable on high flow oxygen at 5 L per minute nasal cannula. Chest x-ray is to follow in a.m. #2 Acute exacerbation of suspected chronic obstructive pulmonary disease. #3 renal failure with a creatinine of 1.4. On 06/24/2016, the renal function remains stable on diuretics in the creatinine remains stable at 1.39. On 06/26/2016, the renal function improved creatinine is down to 1.1 and the patient is still on Lasix. On 06/27/2016, the renal function remains stable with a creatinine of 1.2. #4 Basilar pleural effusion with associated atelectasis/infiltrate. #5 ascites secondary to alcoholic liver disease, status post large void paracentesis #6 Daily alcohol use. #7 Atrial fibrillation with rapid ventricular response, not anticoagulated in the outpatient setting. #8 Chronic lower extremity edema or #9 Acute on chronic suspected diastolic versus systolic congestive heart failure. #10 Hyperlipidemia. #11 History of DVT. #12 Hyperlipidemia. #13 Coronary artery disease. #14 Poor overall functional performance secondary to the above-mentioned multiple comorbidities. #15 nicotine addiction/smoking is the patient carries more than 80-[id number] smoking history. Plan Continue oral Lasix. Keep the patient in a negative fluid balance. Cut down the salt intake. The Fluid Intake. Monitor the Renal Function. Wean down the FiO2 As Tolerated. Continue IV Rocephin. Chest x-ray in a.m.
--- NOTE | 2016-06-27 13:47 | P.PN ---
Subjective Principal diagnosis: CHF/cardiomyopathy This is a pleasant 71-year-old gentleman with a past medical history significant for alcohol abuse, nicotine abuse, cardiomyopathy, chronic atrial fib ablation, COPD, chronic kidney disease, and multiple comorbid conditions who was admitted to the hospital with fluid overload and evidence of congestive heart failure. Initially he was started on Lasix IV without significant improvement in the symptoms. He was found to have a site this and he underwent paracentesis with significant improvement in the shortness of breath. He underwent an echocardiogram which showed severe cardiomyopathy with an ejection fraction off 25%. Hemodynamically, he continues to be stable with a slightly uncontrolled heart rates. The blood pressure has been marginal. I will continue the current medical treatment. Continue monitor the kidney function and electrolytes. If the patient is not going to have any other procedure I would consider starting him on anticoagulation. Objective - Vital Signs Vital signs: Vital Signs Temp 98.8 F 06/27/16 12:00 Pulse 94 06/27/16 12:00 Resp 20 06/27/16 12:00 BP 100/58 06/27/16 12:00 Pulse Ox 91 L 06/27/16 12:00 Intake & Output 06/26/16 06/27/16 06/27/16 18:59 06:59 18:59 Intake Total 1023 450 588 Output Total 750 350 Balance 273 100 588 Weight 104.5 kg Intake: IV 100 cefTRIAXone 1,000 mg In 100 Sodium Chloride 0.9% 50 ml @ 100 mls/hr IVPB Q24HR [facility] Rx#:[id number] Oral 923 450 588 Output: Urine 750 350 Other: Voiding Method Indwelling Catheter Indwelling Catheter Indwelling Catheter - Constitutional General appearance: Present: no acute distress - Respiratory Respiratory: bilateral: CTA - Cardiovascular Rhythm: irregularly irregular Heart sounds: normal: S1, S2 - Labs CBC & Chem 7: 06/27/16 05:35 06/27/16 05:35 Labs: Abnormal Lab Results - Last 24 Hours (Table) 06/27/16 06/27/16 Range/Units 05:35 05:35 RBC 4.04 L (4.30-5.90) m/uL Hgb 12.3 L (13.0-17.5) gm/dL Hct 38.9 L (39.0-53.0) % RDW 16.6 H (11.5-15.5) % Lymphocytes # 0.5 L (1.0-4.8) k/uL Sodium 135 L (137-145) mmol/L Chloride 94 L (98-107) mmol/L Carbon Dioxide 35 H (22-30) mmol/L BUN 39 H (9-20) mg/dL Microbiology - Last 24 Hours (Table) 06/23/16 13:45 Gram Stain - Preliminary Ascites Fluid Body Fluid Culture - Preliminary Assessment and Plan Plan: Assessment #1 liver cirrhosis #2 congestive heart failure #3 severe cardiomyopathy #4 chronic atrial fibrillation #5 alcohol abuse #6 COPD #7 multiple comorbid conditions you Plan #1 currently the patient is on Lasix by mouth we'll continue that #2 continue current medical treatment for cardiomyopathy. The patient is on metoprolol, and aldactone. I just added lisinopril #3address the anticoagulation regarding the A. fib
--- NOTE | 2016-06-27 14:35 | P.PN ---
Subjective Principal diagnosis: edema 11-year-old male with chronic alcoholism who has many medical troubles include alcoholic cardiomyopathy with ejection fraction of 20%, cirrhosis with recurrent ascites and chronic upper and lower extremity edema. Presents to Hospital feeling very poorly. Having significant worsening overall edema and much worsening ascites. Because of this he presented to Hospital. He relates in the past he was having paracentesis performed on an ongoing basis. But has now been several months since occurred she's had a marked worsening of his status. At presentation there is evidence of the extensive ascites, acute on chronic renal failure as well as extensive edema with changes to his skin. The patient is somewhat of a poor historian. Relates that he just feels poorly overall did feel better after the 12 L high-volume paracentesis, but has had fluid again building and plans for paracentsis tomorrow.he is denying fevers chills or rigors. Appetite somewhat improved today and is eating his meals better. Objective - Vital Signs Vital signs: Vital Signs Temp 98.8 F 06/27/16 12:00 Pulse 94 06/27/16 12:00 Resp 20 06/27/16 12:00 BP 100/58 06/27/16 12:00 Pulse Ox 91 L 06/27/16 12:00 Intake & Output 06/26/16 06/27/16 06/27/16 18:59 06:59 18:59 Intake Total 1023 450 588 Output Total 750 350 Balance 273 100 588 Weight 104.5 kg Intake: IV 100 cefTRIAXone 1,000 mg In 100 Sodium Chloride 0.9% 50 ml @ 100 mls/hr IVPB Q24HR [facility] Rx#:[id number] Oral 923 450 588 Output: Urine 750 350 Other: Voiding Method Indwelling Catheter Indwelling Catheter Indwelling Catheter - Exam 71-year-old male doing very poorly due to his chronic alcoholism. HEENT: Mildly icteric conjunctiva are pink and moist nasal mucosa grossly intact without significant lesions, there is no thrush. Dentition very poor Neck: The neck is supple without significant lymphadenopathy or thyromegaly. Lungs: Symmetrical air entry with few basilar crackles and expiratory wheezes are scattered no egophony or changes of tactile fremitus Heart: Irregular with an audible S1-S2, no S3 positive S4. 2 over 6 systolic murmur is noted without click or rub Abdomen: Positive bowel sounds soft and nontender without palpable masses or organomegaly. There was no guarding or rebound. increased girth Neuro: Awake alert oriented to person place and time. There are no acute new gross focal sensory motor deficits.ed girth Extremities: The upper and lower extremities show evidence of significant edema. The skin is dry and cracked with significant flaking. Evaluation there are no open or weeping areas. The skin however has generalized erythema. He relates it's minimally pruritic and just feels dry. Neuro: Awake alert oriented to person place and time. Is aware that his sister in law and daughter have come to visit. He however is very slow and a poor historian - Labs CBC & Chem 7: 06/27/16 05:35 06/27/16 05:35 Labs: Abnormal Lab Results - Last 24 Hours (Table) 06/27/16 06/27/16 Range/Units 05:35 05:35 RBC 4.04 L (4.30-5.90) m/uL Hgb 12.3 L (13.0-17.5) gm/dL Hct 38.9 L (39.0-53.0) % RDW 16.6 H (11.5-15.5) % Lymphocytes # 0.5 L (1.0-4.8) k/uL Sodium 135 L (137-145) mmol/L Chloride 94 L (98-107) mmol/L Carbon Dioxide 35 H (22-30) mmol/L BUN 39 H (9-20) mg/dL Microbiology - Last 24 Hours (Table) 06/23/16 13:45 Gram Stain - Preliminary Ascites Fluid Body Fluid Culture - Preliminary Assessment and Plan (1) Bilateral lower leg cellulitis Narrative/Plan: 71-year-old male presents to Hospital with worsening of his overall status especially of his ascites and the effects was having on him. Because of the been quite sometime since his last paracentesis sought care for this. He is now status post a high-volume 12 L paracentesis and he relates he feels considerably better. Still feels a bit bloated. He has been seen by nephrology because of his acute renal failure concerns of the hepatorenal syndrome. Fortunately showing some slight improvement today. He has hypoalbuminemia, alcoholism and significant chronic edema. This is cause significant changes to his skin which is resulted in the very dried cracking appearance. At this time local skin care with moisturizer should be utilize Silvadene is being applied and is reasonable and can be wrapped into place of the lower extremities. He been on Aldactone that is now discontinued. The patient did have a paracentesis and that fluid has been sent to the laboratory. While cultures are pending antibiotic therapy has begun. When utilize ceftriaxone which will give us coverage for both infection of the peritoneal cavity as well as difficulties with his skin. If he becomes febrile blood cultures will be helpful. Overall the patient has quite a poor prognosis. seems to doing well with the current antibiotic therapy Peritoneal culture is negative so far. If negative then will discontinue the rocephin will likely need some follow-up therapy for the very dry skin Status: Acute (2) Alcoholic liver disease Status: Chronic (3) Leukocytosis Status: Acute
--- NOTE | 2016-06-27 16:34 | PN ---
DATE OF SERVICE: 06/27/2016 PRESENTING COMPLAINT: Short of breath. INTERVAL HISTORY: This patient has alcoholic cirrhosis, severe ascites, status post paracenteses, 12 L were removed. Patient has got recurrent abdominal distention, also got acute renal failure, possibly chronic kidney disease, COPD, pneumonia, severe cellulitis. Abdomen is distended, awaiting large-volume repeat paracentesis. Patient tolerating some diet. Review of systems done for constitutional, cardiovascular, GI, pulmonary; dermatologic; relevant findings as above. Current medications are reviewed that include IV ceftriaxone, p.o. Lasix 40 mg b.i.d. and Aldactone 24 b.i.d., Silvadene topical. On examination, temperature 98.8, pulse 94, respirations 20, blood pressure 100/58, pulse ox 91% on 4 L. GENERAL APPEARANCE: Sitting up, tired-appearing. EYES: Pupils equal, conjunctivae are pale. NECK: JVD possibly raised. Respiratory effort increased. LUNGS: Diminished breath sounds at the bases, crackles. CARDIOVASCULAR: Heart size irregular, edema present. ABDOMEN: Distended, liver and spleen not palpable. PSYCHIATRY: Awake, answering simple questions. DERMATOLOGICAL: Diffuse cellulitis, no improvement from presentation. INVESTIGATIONS: White count 9.2, potassium 4.6, BUN 39, creatinine 1.20. I's and O's are pretty much balanced right now. ASSESSMENT: 1. Acute on chronic congestive heart failure exacerbation from systolic dysfunction, could be alcoholic cardiomyopathy; ejection fraction 20% to 25%. 2. Acute respiratory failure, hypoxic on admission, from underlying chronic obstructive pulmonary disease, slow to respond. 3. Acute chronic obstructive pulmonary disease exacerbation in a smoker. 4. Chronic nicotine dependence. Patient is an active cigarette smoker. 5. Persistent atrial fibrillation, patient not felt to be carried from anticoagulation from prolonged pro time and high risk of falls and a poor functional status. 6. Acute on chronic renal failure, probably multifactorial. 7. Chronic alcoholism. 8. Troponin leak from hemodynamic mismatch. 9. Acute severe cellulitis of all the 4 extremities. 10. Tense ascites on presentation, from alcoholic cirrhosis. Patient had 12 L removed. Awaiting a repeat paracentesis. 11. Possibly acute on chronic cor pulmonale. 12. Chronic obstructive pulmonary disease in a current smoker. 13. Alcoholic cirrhosis. 14. Hyperkalemia in the setting of renal failure on presentation, now resolved. PLAN: Prognosis remains fairly guarded. Awaiting repeat thoracentesis tomorrow. Care was discussed with the patient. Will follow. Fluid restriction to be continued.
[2016-06-28] MEDS: IPRATROPIUM-ALBUTEROL 3 ML NEB INHALATION PRN (03:39)
[2016-06-28 06:33] LABS: Anion Gap 8 mmol/L; Blood Urea Nitrogen 42 mg/dL (9-20); Calcium 8.6 mg/dL (8.4-10.2); Carbon Dioxide 34 mmol/L (22-30); Chloride 93 mmol/L (98-107); Glucose 97 mg/dL (74-99); Magnesium 1.7 mg/dL (1.6-2.3); Non-African American GFR(MDRD) 54 (>60 ml/min/1.73 sqM); Sodium 135 mmol/L (137-145)
[2016-06-28] MEDS: BUDESONIDE 1 MG/2 ML NEBU INHALATION SCH ×2 (07:30→20:28)
[2016-06-28] MEDS: FORMOTEROL FUMARATE 20 MCG/2 ML NEBU INHALATION SCH ×2 (07:30→20:28)
[2016-06-28] MEDS: IPRATROPIUM-ALBUTEROL 3 ML NEB INHALATION SCH ×4 (07:30→20:28)
[2016-06-28] MEDS: METOPROLOL TARTRATE 25 MG TAB PO SCH ×2 (08:13→20:53)
[2016-06-28] MEDS: LISINOPRIL 2.5 MG TAB PO SCH (08:13)
[2016-06-28] MEDS: DIGOXIN 125 MCG TAB PO SCH (08:13)
[2016-06-28] MEDS: NICOTINE 21MG/24HR PATCH TRANSDERM SCH (08:13)
[2016-06-28] MEDS: FUROSEMIDE 40 MG TAB PO SCH ×2 (08:13→16:03)
[2016-06-28] MEDS: SPIRONOLACTONE 25 MG TAB PO SCH ×2 (08:14→20:53)
--- NOTE | 2016-06-28 08:38 | XR ---
EXAMINATION TYPE: XR chest 1V DATE OF EXAM: 06/28/2016 7:05 AM COMPARISON: Prior chest x-ray 24 June 2016 HISTORY: Abnormal chest x-ray, right lung pneumonia, COPD and fluid TECHNIQUE: Single frontal view of the chest is obtained. FINDINGS: The heart is markedly enlarged. Pleural-parenchymal changes are stable. No evident pneumot horax. There are overlying cardiac leads. IMPRESSION: Correlate to exclude pulmonary venous hypertension and interstitial edema, there may be basilar atelectasis versus edema, effusion. Marked cardiomegaly. Pneumonia not excluded. Follow-up is recommended.
--- NOTE | 2016-06-28 08:44 | P.PN ---
Subjective Principal diagnosis: Patient is seen in follow-up for acute kidney injury. Renal function is mildly worsened with creatinine at 1.32 today. He is a Wilder catheter in place and is nonoliguric. Patient denies any chest pain or shortness of breath. He does have history of severe systolic dysfunction with ejection fraction of 20% as well as liver cirrhosis. His last paracentesis was on June 23 112 L were drained. He is currently maintained on Lasix as well as Aldactone. He's complaining of distended abdomen. Vital signs are stable. General: The patient appeared well nourished and normally developed. HEENT: Head exam is unremarkable. Neck is without jugular venous distension. LUNGS: Lungs are clear to auscultation and percussion. Breath sounds decreased. HEART: Rate and Rhythm are regular. First and second heart sounds normal. No murmurs, rubs or gallops. ABDOMEN: Abdominal exam reveals normal bowel sounds. Moderately distended. EXTREMITITES: No clubbing, cyanosis, or edema. Objective - Vital Signs Vital signs: Vital Signs Temp 97.5 F L 06/28/16 03:38 Pulse 88 06/28/16 03:41 Resp 20 06/28/16 03:38 BP 91/52 06/28/16 03:38 Pulse Ox 93 L 06/28/16 03:38 Intake & Output 06/27/16 06/28/16 06/28/16 18:59 06:59 18:59 Intake Total 1410 180 Output Total 525 400 Balance 885 -400 180 Weight 106 kg Intake: IV 100 cefTRIAXone 1,000 mg In 100 Sodium Chloride 0.9% 50 ml @ 100 mls/hr IVPB Q24HR [facility] Rx#:[id number] Oral 1310 180 Output: Urine 525 400 Other: Voiding Method Indwelling Catheter Indwelling Catheter # Bowel Movements 1 - Labs CBC & Chem 7: 06/27/16 05:35 06/28/16 05:40 Labs: Abnormal Lab Results - Last 24 Hours (Table) 06/28/16 Range/Units 05:40 Sodium 135 L (137-145) mmol/L Chloride 93 L (98-107) mmol/L Carbon Dioxide 34 H (22-30) mmol/L BUN 42 H (9-20) mg/dL Creatinine 1.32 H (0.66-1.25) mg/dL Microbiology - Last 24 Hours (Table) 06/23/16 13:45 Gram Stain - Final Ascites Fluid Body Fluid Culture - Final Assessment and Plan Plan: Assessment: #1. Nonoliguric acute kidney injury related to compartment syndrome from tense ascites. There may be underlying chronic kidney disease stage II with baseline creatinine near 1.2 related to hepatorenal syndrome as well as cardiorenal syndrome. Urinalysis is quite benign. #2. Ascites. #3. Systolic CHF with ejection fraction of 20%. #4. Hyperkalemia secondary to Aldactone. #5. Hypervolemic hyponatremia. #6. Hypotension related to cardiac and liver dysfunction. Plan: Continue Lasix 40 mg twice daily along with Aldactone 25 mg twice daily. Monitor potassium. Check potassium level at 6 PM today. To hold Aldactone if rising. Scheduled for paracentesis today. He is to get 25 g of albumin prior to the procedure as well as 25 g post paracentesis. Repeat electrolytes in the morning. Monitor hemodynamics. May need to start Midodrine.
[2016-06-28 11:40] LABS: Mean Platelet Volume 8.8
[2016-06-28 12:06] LABS: INR 1.3 (<1.1); Prothrombin Time 13.2 sec (9.0-12.0)
[2016-06-28] MEDS: ALBUMIN HUMAN 25% 50 ML in EMPTY BAG 1 BAG IVPB SCH ×4 (12:34→16:02)
--- NOTE | 2016-06-28 12:36 | P.PN ---
Subjective Principal diagnosis: Congestive heart failure This is a 71-year-old gentleman with known history of EtOH abuse, nicotine dependence, ascites, liver failure, hypertension, hyperlipidemia, COPD with home O2 use,, he presents to the hospital with symptoms of progressive shortness of breath as well as significant fluid overload abdominally. Patient has undergone prior paracentesis in the past at [facility]. He also underwent a paracentesis here, for 12 L removed. Creatinine today 1.3. Currently on Lasix and Aldactone. Does feel that his abdomen is more distended today. Objective - Vital Signs Vital signs: Vital Signs Temp 98.8 F 06/28/16 08:00 Pulse 103 H 06/28/16 08:00 Resp 20 06/28/16 08:00 BP 115/64 06/28/16 08:00 Pulse Ox 91 L 06/28/16 08:00 Intake & Output 06/27/16 06/28/16 06/28/16 18:59 06:59 18:59 Intake Total 1410 180 Output Total 525 400 Balance 885 -400 180 Weight 106 kg Intake: IV 100 cefTRIAXone 1,000 mg In 100 Sodium Chloride 0.9% 50 ml @ 100 mls/hr IVPB Q24HR JOSLYN Rx#:[id number] Oral 1310 180 Output: Urine 525 400 Other: Voiding Method Indwelling Catheter Indwelling Catheter Indwelling Catheter # Bowel Movements 1 - Exam PHYSICAL EXAMINATION: HEENT: Head is atraumatic, normocephalic. Pupils equal, round. Neck is supple. There is elevated jugular venous pressure. HEART EXAMINATION: Heart S1 and S2 irregular irregular a systolic murmur is heard. CHEST EXAMINATION: Lungs reveal scattered coarse wheezes throughout . ABDOMEN: Mildly Distended, firm, bowel sounds heard. . EXTREMITIES: 1+ peripheral pulses with 2+ evidence of peripheral edema and no calf tenderness noted. Evidence of venous stasis and chronic ulcerations bilaterally. NEUROLOGIC patient is awake, alert and oriented -3. . - Labs CBC & Chem 7: 06/28/16 05:40 06/28/16 05:40 Labs: Abnormal Lab Results - Last 24 Hours (Table) 06/28/16 06/28/16 Range/Units 05:40 05:40 PT 13.2 H (9.0-12.0) sec Sodium 135 L (137-145) mmol/L Chloride 93 L (98-107) mmol/L Carbon Dioxide 34 H (22-30) mmol/L BUN 42 H (9-20) mg/dL Creatinine 1.32 H (0.66-1.25) mg/dL Microbiology - Last 24 Hours (Table) 06/23/16 13:45 Gram Stain - Final Ascites Fluid Body Fluid Culture - Final Assessment and Plan Plan: Assessment and plan #1 systolic congestive cardiac failure, acute on chronic. Lasix currently on hold. #2 ascites, patient has history of liver failure with prior paracentesis in the past. Patient underwent a paracentesis here for 12 L. #3 hypertension #4 COPD # 5 hyperlipidemia #6 chronic persistent atrial fibrillation, not on anticoagulation at home. Eliquis has been resumed.. #7 nicotine dependence #8 EtOH abuse #9 hyperkalemia #10 troponin abnormality, not consistent with acute coronary syndrome, likely secondary to oxygen supply and demand mismatch. Plan From cardiology's perspective, we'll follow this patient with you now on an as- needed basis only, please don't hesitate to call with any questions. DNP note has been reviewed, I agree with a documented findings and plan of care. Patient was seen and examined.
--- NOTE | 2016-06-28 15:45 | US ---
EXAMINATION TYPE: US paracentesis abd w/image DATE OF EXAM: 06/28/2016 3:04 PM COMPARISON: Ultrasound abdomen 25 June 2016 HISTORY: Ascites. PROCEDURE: Maximal barrier technique was utilized. The skin overlying a suitable pocket of fluid was localized with ultrasound and the overlying skin was prepped and draped. Ultrasound was utilized with sterile technique. Lidocaine was used for local anesthesia and a skin alexandra made with a scalpel. Catheter was advanced under direct ultrasound guidance into a suitable pocket of fluid and approximately 7.5 liter s of serous fluid were removed. Catheter was withdrawn and hemostasis achieved. There is no immedia te complication; the patient is discharged in stable condition. IMPRESSION: STATUS POST ULTRASOUND GUIDED PARACENTESIS FOR PALLIATION OF ASCITES. THIS PROCEDURE WA S PERFORMED BY THE UNDERSIGNED.
--- NOTE | 2016-06-28 21:13 | PN ---
DATE OF SERVICE: 06/28/2016 PRESENTING COMPLAINT: Short of breath. INTERVAL HISTORY: This is a patient who has alcoholic cirrhosis, severe ascites; had repeat paracentesis done today of about 7.5 L. Twelve liters were removed previously. Patient also has acute renal failure, chronic kidney disease, COPD, pneumonia, severe cellulitis. Patient is getting some albumin today. He is keen to go home but pretty much has been in bed. He states he buys his food and all the food is bought and he is really keen to go home. Review of systems done for constitutional, cardiovascular, GI, pulmonary; dermatologic; relevant findings as above. Current medications are reviewed. Ceftriaxone has been discontinued. Patient is on day 6. Aldactone and Zestril were started today per Cardiology. On examination, temperature 98.4, pulse 97, respiration 20, blood pressure 108/60, pulse ox 92% on 5 L. GENERAL APPEARANCE: Sitting up, tired-appearing. EYES: Pupils equal. Conjunctivae pale. NECK: JVD unable to assess. RESPIRATORY: Effort increased. LUNGS: Decreased breath sounds. CARDIOVASCULAR: Heart sounds regular. Decreased edema. ABDOMEN: Less distended, soft. Liver and spleen not palpable. PSYCHIATRY: Alert and oriented x3. Mood and affect normal. DERMATOLOGICAL: Diffuse cellulitis, cracked skin, improved from admission. INVESTIGATIONS: Potassium 5. BUN 42, creatinine 1.32. ASSESSMENT: 1. Acute on chronic congestive heart failure exacerbation from systolic dysfunction, likely alcoholic cardiomyopathy; ejection fraction 20% to 25%. 2. Acute respiratory failure, hypoxic, on admission, from underlying chronic obstructive pulmonary disease and pulmonary edema. 3. Acute chronic obstructive pulmonary disease exacerbation in a smoker. 4. Chronic nicotine dependence. Patient is an active cigarette smoker. 5. Persistent atrial fibrillation. Patient is not felt to be a candidate for anticoagulation with a very high risk of falls. 6. Acute on chronic renal failure, probably multifactorial. 7. Chronic alcoholism. 8. Troponin leak from hemodynamic mismatch. 9. Acute severe cellulitis of lower extremities. 10. Ichthyosis. 11. Tense ascites on presentation from alcoholic cirrhosis. Patient initially had 12 liters removed; today 7.5 liters removed. 12. Acute on chronic cor pulmonale on presentation. 13. Chronic obstructive pulmonary disease in a current smoker. PLAN: Continue current medication and treatment plan. Will have social research assistant try to coordinate patient's discharge planning. Overall prognosis still remains guarded. Patient is to remain on fluid restriction.
--- NOTE | 2016-06-28 21:39 | P.PN ---
Subjective Principal diagnosis: edema 11-year-old male with chronic alcoholism who has many medical troubles include alcoholic cardiomyopathy with ejection fraction of 20%, cirrhosis with recurrent ascites and chronic upper and lower extremity edema. Presents to Hospital feeling very poorly. Having significant worsening overall edema and much worsening ascites. Because of this he presented to Hospital. He relates in the past he was having paracentesis performed on an ongoing basis. But has now been several months since occurred she's had a marked worsening of his status. At presentation there is evidence of the extensive ascites, acute on chronic renal failure as well as extensive edema with changes to his skin. The patient is somewhat of a poor historian. Relates that he just feels poorly overall did feel better after the 12 L high-volume paracentesis, but has had fluid again building and plans for paracentsis tomorrow.he is denying fevers chills or rigors. Appetite somewhat improved today and is eating his meals better. a second paracentesis was performed. 7 a half liters of fluid were removed. He definitely feels better this afternoon Objective - Vital Signs Vital signs: Vital Signs Temp 98.4 F 06/28/16 12:57 Pulse 88 06/28/16 20:30 Resp 20 06/28/16 17:37 BP 85/64 06/28/16 17:37 Pulse Ox 92 L 06/28/16 17:37 Intake & Output 06/28/16 06/28/16 06/29/16 06:59 18:59 06:59 Intake Total 1060 Output Total 400 8300 Balance -400 -7240 Weight 106 kg Intake: IV 100 cefTRIAXone 1,000 mg In 100 Sodium Chloride 0.9% 50 ml @ 100 mls/hr IVPB Q24HR JOSLYN Rx#:[id number] Intake, IV Titration 50 Amount Albumin Human 25% 50 ml 50 In Empty Bag 1 bag @ 200 mls/hr IVPB Q15M JOSLYN Rx#: [id number] Oral 910 Output: Urine 400 800 Other 7500 Other: Voiding Method Indwelling Catheter Indwelling Catheter # Bowel Movements 1 - Exam 71-year-old male doing very poorly due to his chronic alcoholism. HEENT: Mildly icteric conjunctiva are pink and moist nasal mucosa grossly intact without significant lesions, there is no thrush. Dentition very poor Neck: The neck is supple without significant lymphadenopathy or thyromegaly. Lungs: Symmetrical air entry with few basilar crackles and expiratory wheezes are scattered no egophony or changes of tactile fremitus Heart: Irregular with an audible S1-S2, no S3 positive S4. 2 over 6 systolic murmur is noted without click or rub Abdomen: Positive bowel sounds soft and nontender without palpable masses or organomegaly. There was no guarding or rebound. increased girth Neuro: Awake alert oriented to person place and time. There are no acute new gross focal sensory motor deficits.ed girth Extremities: The upper and lower extremities show evidence of significant edema. The skin is dry and cracked with significant flaking. Evaluation there are no open or weeping areas. The skin however has generalized dryness. He relates it's minimally pruritic and just feels dry. Neuro: Awake alert oriented to person place and time. brighter affect - Labs CBC & Chem 7: 06/28/16 05:40 06/28/16 20:33 Labs: Abnormal Lab Results - Last 24 Hours (Table) 06/28/16 06/28/16 Range/Units 05:40 05:40 PT 13.2 H (9.0-12.0) sec Sodium 135 L (137-145) mmol/L Chloride 93 L (98-107) mmol/L Carbon Dioxide 34 H (22-30) mmol/L BUN 42 H (9-20) mg/dL Creatinine 1.32 H (0.66-1.25) mg/dL Microbiology - Last 24 Hours (Table) 06/23/16 13:45 Gram Stain - Final Ascites Fluid Body Fluid Culture - Final Laboratory Results WBC 9.2 k/uL (3.8-10.6) 06/27/16 05:35 RBC 4.04 m/uL (4.30-5.90) L 06/27/16 05:35 Hgb 12.3 gm/dL (13.0-17.5) L 06/27/16 05:35 Hct 38.9 % (39.0-53.0) L 06/27/16 05:35 MCV 96.3 fL (80.0-100.0) 06/27/16 05:35 MCH 30.4 pg (25.0-35.0) 06/27/16 05:35 MCHC 31.5 g/dL (31.0-37.0) 06/27/16 05:35 RDW 16.6 % (11.5-15.5) H 06/27/16 05:35 Plt Count 213 k/uL (150-450) 06/28/16 05:40 Neutrophils % 83 % 06/27/16 05:35 Lymphocytes % 5 % 06/27/16 05:35 Monocytes % 8 % 06/27/16 05:35 Eosinophils % 2 % 06/27/16 05:35 Basophils % 1 % 06/27/16 05:35 Neutrophils # 7.6 k/uL (1.3-7.7) 06/27/16 05:35 Lymphocytes # 0.5 k/uL (1.0-4.8) L 06/27/16 05:35 Monocytes # 0.7 k/uL (0-1.0) 06/27/16 05:35 Eosinophils # 0.2 k/uL (0-0.7) 06/27/16 05:35 Basophils # 0.1 k/uL (0-0.2) 06/27/16 05:35 Hypochromasia Slight 06/27/16 05:35 Poikilocytosis Slight 06/26/16 06:00 Anisocytosis Slight 06/27/16 05:35 Macrocytosis Slight 06/27/16 05:35 PT 13.2 sec (9.0-12.0) H 06/28/16 05:40 INR 1.3 (<1.1) 06/28/16 05:40 APTT 50.9 sec (22.0-30.0) H 06/22/16 02:24 Sodium 135 mmol/L (137-145) L 06/28/16 05:40 Potassium 4.7 mmol/L (3.5-5.1) 06/28/16 20:33 Chloride 93 mmol/L (98-107) L 06/28/16 05:40 Carbon Dioxide 34 mmol/L (22-30) H 06/28/16 05:40 Anion Gap 8 mmol/L 06/28/16 05:40 BUN 42 mg/dL (9-20) H 06/28/16 05:40 Creatinine 1.32 mg/dL (0.66-1.25) H 06/28/16 05:40 Est GFR (MDRD) Af Amer >60 (>60 ml/min/1.73 sqM) 06/28/16 05:40 Est GFR (MDRD) Non-Af 54 (>60 ml/min/1.73 sqM) 06/28/16 05:40 Glucose 97 mg/dL (74-99) 06/28/16 05:40 Calcium 8.6 mg/dL (8.4-10.2) 06/28/16 05:40 Phosphorus 4.0 mg/dL (2.5-4.5) 06/21/16 18:08 Magnesium 1.7 mg/dL (1.6-2.3) 06/28/16 05:40 Total Bilirubin 1.3 mg/dL (0.2-1.3) 06/23/16 05:51 AST 28 U/L (17-59) 06/23/16 05:51 ALT 32 U/L (21-72) 06/23/16 05:51 Alkaline Phosphatase 155 U/L (38-126) H 06/23/16 05:51 Ammonia 23 umol/L (<30) 06/23/16 05:51 Total Creatine Kinase 125 U/L (55-170) 06/21/16 18:08 CK-MB (CK-2) 10.0 ng/mL (0.0-2.4) H* 06/21/16 18:08 CK-MB (CK-2) Rel Index 8.0 06/21/16 18:08 Troponin I 0.052 ng/mL (0.000-0.034) H* 06/22/16 08:20 NT-Pro-B Natriuret Pep 07980 pg/mL 06/21/16 18:08 Total Protein 6.7 g/dL (6.3-8.2) 06/23/16 05:51 Albumin 3.5 g/dL (3.5-5.0) 06/23/16 05:51 Tumor Marker AFP 2.3 ng/mL (0.0-7.9) 06/23/16 09:27 TSH 11.000 mIU/L (0.465-4.680) H 06/22/16 08:20 Free T4 1.33 ng/dL (0.78-2.19) 06/22/16 08:20 Urine Color Yellow 06/22/16 00:00 Urine Appearance Clear (Clear) 06/22/16 00:00 Urine pH 5.0 (5.0-8.0) 06/22/16 00:00 Ur Specific [place] 1.011 (1.001-1.035) 06/22/16 00:00 Urine Protein Trace (Negative) H 06/22/16 00:00 Urine Glucose (UA) Negative (Negative) 06/22/16 00:00 Urine Ketones Negative (Negative) 06/22/16 00:00 Urine Blood Negative (Negative) 06/22/16 00:00 Urine Nitrate Negative (Negative) 06/22/16 00:00 Urine Bilirubin Negative (Negative) 06/22/16 00:00 Urine Urobilinogen 3.0 mg/dL (<2.0) 06/22/16 00:00 Ur Leukocyte Esterase Negative (Negative) 06/22/16 00:00 Fluid Source Peritoneal 06/23/16 13:45 Fluid Appearance Clear 06/23/16 13:45 Fluid RBC 325 /uL 06/23/16 13:45 Fluid Nucleated Cells 65 /uL 06/23/16 13:45 Fluid Polynuclear WBCs 28 % 06/23/16 13:45 Fluid Mononuclear WBCs 72 % 06/23/16 13:45 Fluid Comment Few Mesothelial 06/23/16 13:45 Vancomycin Trough 21.0 ug/mL 06/23/16 19:16 Hepatitis A IgM Ab NEGATIVE 06/23/16 05:51 Hep Bs Antigen Negative 06/23/16 05:51 Hep B Core IgM Ab NEGATIVE 06/23/16 05:51 Hep C IgG Ab Negative (Negative) 06/23/16 05:51 Microbiology 06/23/16 13:45 Ascites Fluid Gram Stain - Final 06/23/16 13:45 Ascites Fluid Body Fluid Culture - Final Assessment and Plan (1) Bilateral lower leg cellulitis Narrative/Plan: 71-year-old male presents to Hospital with worsening of his overall status especially of his ascites and the effects was having on him. Because of the been quite sometime since his last paracentesis sought care for this. He is now status post a high-volume 12 L paracentesis and he relates he feels considerably better. Still feels a bit bloated. He has been seen by nephrology because of his acute renal failure concerns of the hepatorenal syndrome. Fortunately showing some slight improvement today. He has hypoalbuminemia, alcoholism and significant chronic edema. This is cause significant changes to his skin which is resulted in the very dried cracking appearance. At this time local skin care with moisturizer should be utilize Silvadene is being applied and is reasonable and can be wrapped into place of the lower extremities. He been on Aldactone that is now discontinued. The patient did have a paracentesis and that fluid has been sent to the laboratory. While cultures are pending antibiotic therapy has begun. When utilize ceftriaxone which will give us coverage for both infection of the peritoneal cavity as well as difficulties with his skin. If he becomes febrile blood cultures will be helpful. Overall the patient has quite a poor prognosis. The peritoneal cultures are now negative and the Rocephin is discontinued. A follow-up paracentesis was performed with no evidence of any spontaneous bacterial peritonitis occurring. The patient does not have significant renal failure and does not have an elevated bilirubin. He has not had evidence of this prior bouts of spontaneous bacteria peritonitis in would not need prophylaxis at this point in time. will likely need some follow-up therapy for the very dry skin Status: Acute (2) Alcoholic liver disease Status: Chronic (3) Leukocytosis Status: Acute
[2016-06-29 07:07] LABS: Anion Gap 7 mmol/L; Blood Urea Nitrogen 34 mg/dL (9-20); Calcium 8.5 mg/dL (8.4-10.2); Carbon Dioxide 34 mmol/L (22-30); Chloride 94 mmol/L (98-107); Glucose 116 mg/dL (74-99); Magnesium 1.7 mg/dL (1.6-2.3); Non-African American GFR(MDRD) >60 (>60 ml/min/1.73 sqM); Potassium 4.5 mmol/L (3.5-5.1); Sodium 135 mmol/L (137-145)
[2016-06-29] MEDS: DIGOXIN 125 MCG TAB PO SCH (08:25)
[2016-06-29] MEDS: NICOTINE 21MG/24HR PATCH TRANSDERM SCH (08:25)
[2016-06-29] MEDS: METOPROLOL TARTRATE 25 MG TAB PO SCH ×2 (08:25→21:32)
[2016-06-29] MEDS: SPIRONOLACTONE 25 MG TAB PO SCH ×2 (08:25→21:32)
[2016-06-29] MEDS: FUROSEMIDE 40 MG TAB PO SCH ×2 (08:25→17:37)
[2016-06-29] MEDS: IPRATROPIUM-ALBUTEROL 3 ML NEB INHALATION SCH ×4 (08:37→19:31)
--- NOTE | 2016-06-29 10:02 | P.PN ---
Subjective Principal diagnosis: Patient is seen in follow-up for acute kidney injury. Renal function is improved today with creatinine at 1.1. Admits to good urine output. Patient denies any chest pain or shortness of breath. He does have history of severe systolic dysfunction with ejection fraction of 20% as well as liver cirrhosis. His last paracentesis was on June 28 and 7.5 L was drained. He did receive albumin. He is currently maintained on Lasix as well as Aldactone. He' s here to go home. Vital signs are stable. General: The patient appeared well nourished and normally developed. HEENT: Head exam is unremarkable. Neck is without jugular venous distension. LUNGS: Lungs are clear to auscultation and percussion. Breath sounds decreased. HEART: Rate and Rhythm are regular. First and second heart sounds normal. No murmurs, rubs or gallops. ABDOMEN: Abdominal exam reveals normal bowel sounds. Moderately distended. EXTREMITITES: No clubbing, cyanosis, or edema. Objective - Vital Signs Vital signs: Vital Signs Temp 97.5 F L 06/29/16 08:00 Pulse 104 H 06/29/16 08:51 Resp 20 06/29/16 08:00 BP 95/73 06/29/16 08:00 Pulse Ox 92 L 06/29/16 08:00 Intake & Output 06/28/16 06/29/16 06/29/16 18:59 06:59 18:59 Intake Total 1060 150 Output Total 8300 500 Balance -7240 -350 Weight 106.5 kg Intake: IV 100 cefTRIAXone 1,000 mg In 100 Sodium Chloride 0.9% 50 ml @ 100 mls/hr IVPB Q24HR [facility]OSLYN Rx#:[id number] Intake, IV Titration 50 Amount Albumin Human 25% 50 ml 50 In Empty Bag 1 bag @ 200 mls/hr IVPB Q15M JOSLYN Rx#: [id number] Oral 910 150 Output: Urine 800 500 Other 7500 Other: Voiding Method Indwelling Catheter Urinal # Voids 1 - Labs CBC & Chem 7: 06/28/16 05:40 06/29/16 06:30 Labs: Abnormal Lab Results - Last 24 Hours (Table) 06/28/16 06/29/16 Range/Units 05:40 06:30 PT 13.2 H (9.0-12.0) sec Sodium 135 L (137-145) mmol/L Chloride 94 L (98-107) mmol/L Carbon Dioxide 34 H (22-30) mmol/L BUN 34 H (9-20) mg/dL Glucose 116 H (74-99) mg/dL Assessment and Plan Plan: Assessment: #1. Nonoliguric acute kidney injury related to compartment syndrome from tense ascites. There may be underlying chronic kidney disease stage II with baseline creatinine near 1.1-1.2 related to hepatorenal syndrome as well as cardiorenal syndrome. Urinalysis is quite benign. #2. Ascites. Improved post paracentesis on June 28. #3. Systolic CHF with ejection fraction of 20%. #4. Hyperkalemia secondary to Aldactone. Resolved. #5. Hypervolemic hyponatremia. Stable. #6. Hypotension related to cardiac and liver dysfunction. Plan: Continue Lasix 40 mg twice daily along with Aldactone 25 mg twice daily. Start Midodrine 5 mg twice daily. Avoid nephrotoxic agents and hypotensive episodes. Will need weekly scheduled paracentesis.
[2016-06-29] MEDS: MIDODRINE 5 MG TAB PO SCH ×2 (12:00→17:37)
--- NOTE | 2016-06-29 14:23 | P.PN ---
Progress Note - Text Mr. Anderson has significant penile edema, making Wilder catheter insertion difficult. The catheter was removed yesterday, and he states that he is voiding without difficulty. Bladder Scan has shown volumes exceeding 400 mL, suggestive of urinary retention. However, this is unreliable in patients with ascites, as the ascitic fluid is measured and gives an erroneously high result. I would recommend that the catheter not be replaced due to a Bladder Scan result which is likely inaccurate. The catheter should be replaced only if he experiences voiding difficulty.
[2016-06-29] MEDS: LISINOPRIL 2.5 MG TAB PO SCH (17:37)
--- NOTE | 2016-06-29 19:50 | PN ---
DATE OF SERVICE: 06/29/2016 PRESENTING COMPLAINT: Short of breath. INTERVAL HISTORY: This is a patient with alcoholic cirrhosis, severe ascites, had paracentesis x2 totalling about 18 liters, also had acute renal failure, chronic kidney disease, COPD, pneumonia, severe cellulitis. Patient actually did better. Did walk with a walker. Took about 20 steps in the hallway. Patient is very keen to go home, does not want to go to rehab categorically. Review of systems done for constitutional, cardiovascular, GI, pulmonary, dermatologic; relevant findings as above. Current medications are reviewed. On examination, temperature 96.9, pulse 101, respiration 20, blood pressure 100/55, pulse ox 90% on 5 liters. GENERAL APPEARANCE: Sitting up, awake. EYES: Conjunctivae pale. NECK: JVD not raised. Mass not palpable. RESPIRATORY: Effort increased. LUNGS: Decreased breath sounds. CARDIOVASCULAR: Heart sounds irregular. Decreased edema. ABDOMEN: Slightly distended, soft. Liver and spleen not palpable. PSYCHIATRY: Awake, answering questions. DERMATOLOGICAL: Diffuse dry skin. INVESTIGATIONS: Potassium 4.5. BUN 34, creatinine 1.10. ASSESSMENT: 1. Acute on chronic congestive heart failure exacerbation from systolic dysfunction likely alcoholic cardiomyopathy; ejection fraction 20% to 25%. 2. Acute respiratory failure, hypoxic, on admission, from underlying chronic obstructive pulmonary disease and pulmonary edema. 3. Acute chronic obstructive pulmonary disease exacerbation in a smoker. 4. Chronic nicotine dependence. Patient is an active cigarette smoker. 5. Persistent atrial fibrillation not a candidate for anticoagulation for multiple reasons including falls and alcoholism. 6. Acute on chronic renal failure, probably multifactorial. 7. Chronic alcoholism. 8. Troponin leak from hemodynamic mismatch. 9. Acute severe cellulitis of lower extremity. 10. Ichthyosis. 11. Tenses ascites on presentation. 12. Alcoholic cirrhosis, total of about 18 liters has been removed. 13. Acute on chronic cor pulmonale on presentation. 14. Chronic obstructive pulmonary disease in a current smoker. PLAN: I spoke to patient's daughter, Yana Chavez, telephone number [phone] over the phone. She is a highly hesitant about patient coming home given his social factors including alcohol and smoking. She thinks he will go rapidly downhill. I did talk to patient and even touched upon possible hospice given his multiple comorbidities. Patient is disagreeable to same. Patient is able to carry out a conversation and does not want to go to rehab and definitely wants to go home. I have asked the daughter to come in tomorrow. Patient will need sequential paracentesis. Overall prognosis remains guarded.
--- NOTE | 2016-06-29 21:55 | P.PN ---
Subjective Principal diagnosis: edema 11-year-old male with chronic alcoholism who has many medical troubles include alcoholic cardiomyopathy with ejection fraction of 20%, cirrhosis with recurrent ascites and chronic upper and lower extremity edema. Presents to Hospital feeling very poorly. Having significant worsening overall edema and much worsening ascites. Because of this he presented to Hospital. He relates in the past he was having paracentesis performed on an ongoing basis. But has now been several months since occurred she's had a marked worsening of his status. At presentation there is evidence of the extensive ascites, acute on chronic renal failure as well as extensive edema with changes to his skin. The patient is somewhat of a poor historian. Relates that he just feels poorly overall did feel better after the 12 L high-volume paracentesis, but has had fluid again building and plans for paracentsis tomorrow.he is denying fevers chills or rigors. Appetite somewhat improved today and is eating his meals better. a second paracentesis was performed. 7 a half liters of fluid were removed. He definitely feels better Objective - Vital Signs Vital signs: Vital Signs Temp 96.9 F L 06/29/16 16:00 Pulse 78 06/29/16 19:41 Resp 20 06/29/16 16:00 BP 100/55 06/29/16 16:00 Pulse Ox 90 L 06/29/16 16:00 Intake & Output 06/29/16 06/29/16 06/30/16 06:59 18:59 06:59 Intake Total 150 420 4 Output Total 500 100 400 Balance -350 320 -396 Weight 106.5 kg Intake: Oral 150 420 4 Output: Urine 500 100 400 Other: Voiding Method Urinal # Voids 1 1 - Exam 71-year-old male doing very poorly due to his chronic alcoholism. HEENT: Mildly icteric conjunctiva are pink and moist nasal mucosa grossly intact without significant lesions, there is no thrush. Dentition very poor Neck: The neck is supple without significant lymphadenopathy or thyromegaly. Lungs: Symmetrical air entry with few basilar crackles and expiratory wheezes are scattered no egophony or changes of tactile fremitus Heart: Irregular with an audible S1-S2, no S3 positive S4. 2 over 6 systolic murmur is noted without click or rub Abdomen: Positive bowel sounds soft and nontender without palpable masses or organomegaly. There was no guarding or rebound. increased girth Neuro: Awake alert oriented to person place and time. There are no acute new gross focal sensory motor deficits.ed girth Extremities: The upper and lower extremities show evidence of significant edema. The skin is dry and cracked with significant flaking. Evaluation there are no open or weeping areas. The skin however has generalized dryness. He relates it's minimally pruritic and just feels dry. Neuro: Awake alert oriented to person place and time. brighter affect - Labs CBC & Chem 7: 06/28/16 05:40 06/29/16 06:30 Labs: Abnormal Lab Results - Last 24 Hours (Table) 06/29/16 Range/Units 06:30 Sodium 135 L (137-145) mmol/L Chloride 94 L (98-107) mmol/L Carbon Dioxide 34 H (22-30) mmol/L BUN 34 H (9-20) mg/dL Glucose 116 H (74-99) mg/dL Laboratory Results WBC 9.2 k/uL (3.8-10.6) 06/27/16 05:35 RBC 4.04 m/uL (4.30-5.90) L 06/27/16 05:35 Hgb 12.3 gm/dL (13.0-17.5) L 06/27/16 05:35 Hct 38.9 % (39.0-53.0) L 06/27/16 05:35 MCV 96.3 fL (80.0-100.0) 06/27/16 05:35 MCH 30.4 pg (25.0-35.0) 06/27/16 05:35 MCHC 31.5 g/dL (31.0-37.0) 06/27/16 05:35 RDW 16.6 % (11.5-15.5) H 06/27/16 05:35 Plt Count 213 k/uL (150-450) 06/28/16 05:40 Neutrophils % 83 % 06/27/16 05:35 Lymphocytes % 5 % 06/27/16 05:35 Monocytes % 8 % 06/27/16 05:35 Eosinophils % 2 % 06/27/16 05:35 Basophils % 1 % 06/27/16 05:35 Neutrophils # 7.6 k/uL (1.3-7.7) 06/27/16 05:35 Lymphocytes # 0.5 k/uL (1.0-4.8) L 06/27/16 05:35 Monocytes # 0.7 k/uL (0-1.0) 06/27/16 05:35 Eosinophils # 0.2 k/uL (0-0.7) 06/27/16 05:35 Basophils # 0.1 k/uL (0-0.2) 06/27/16 05:35 Hypochromasia Slight 06/27/16 05:35 Poikilocytosis Slight 06/26/16 06:00 Anisocytosis Slight 06/27/16 05:35 Macrocytosis Slight 06/27/16 05:35 PT 13.2 sec (9.0-12.0) H 06/28/16 05:40 INR 1.3 (<1.1) 06/28/16 05:40 APTT 50.9 sec (22.0-30.0) H 06/22/16 02:24 Sodium 135 mmol/L (137-145) L 06/29/16 06:30 Potassium 4.5 mmol/L (3.5-5.1) 06/29/16 06:30 Chloride 94 mmol/L (98-107) L 06/29/16 06:30 Carbon Dioxide 34 mmol/L (22-30) H 06/29/16 06:30 Anion Gap 7 mmol/L 06/29/16 06:30 BUN 34 mg/dL (9-20) H 06/29/16 06:30 Creatinine 1.10 mg/dL (0.66-1.25) 06/29/16 06:30 Est GFR (MDRD) Af Amer >60 (>60 ml/min/1.73 sqM) 06/29/16 06:30 Est GFR (MDRD) Non-Af >60 (>60 ml/min/1.73 sqM) 06/29/16 06:30 Glucose 116 mg/dL (74-99) H 06/29/16 06:30 Osmolality 287 mosm/kg (280-301) 06/29/16 06:30 Calcium 8.5 mg/dL (8.4-10.2) 06/29/16 06:30 Phosphorus 4.0 mg/dL (2.5-4.5) 06/21/16 18:08 Magnesium 1.7 mg/dL (1.6-2.3) 06/29/16 06:30 Total Bilirubin 1.3 mg/dL (0.2-1.3) 06/23/16 05:51 AST 28 U/L (17-59) 06/23/16 05:51 ALT 32 U/L (21-72) 06/23/16 05:51 Alkaline Phosphatase 155 U/L (38-126) H 06/23/16 05:51 Ammonia 23 umol/L (<30) 06/23/16 05:51 Total Creatine Kinase 125 U/L (55-170) 06/21/16 18:08 CK-MB (CK-2) 10.0 ng/mL (0.0-2.4) H* 06/21/16 18:08 CK-MB (CK-2) Rel Index 8.0 06/21/16 18:08 Troponin I 0.052 ng/mL (0.000-0.034) H* 06/22/16 08:20 NT-Pro-B Natriuret Pep 91891 pg/mL 06/21/16 18:08 Total Protein 6.7 g/dL (6.3-8.2) 06/23/16 05:51 Albumin 3.5 g/dL (3.5-5.0) 06/23/16 05:51 Tumor Marker AFP 2.3 ng/mL (0.0-7.9) 06/23/16 09:27 TSH 11.000 mIU/L (0.465-4.680) H 06/22/16 08:20 Free T4 1.33 ng/dL (0.78-2.19) 06/22/16 08:20 Urine Color Yellow 06/22/16 00:00 Urine Appearance Clear (Clear) 06/22/16 00:00 Urine pH 5.0 (5.0-8.0) 06/22/16 00:00 Ur Specific [place] 1.011 (1.001-1.035) 06/22/16 00:00 Urine Protein Trace (Negative) H 06/22/16 00:00 Urine Glucose (UA) Negative (Negative) 06/22/16 00:00 Urine Ketones Negative (Negative) 06/22/16 00:00 Urine Blood Negative (Negative) 06/22/16 00:00 Urine Nitrate Negative (Negative) 06/22/16 00:00 Urine Bilirubin Negative (Negative) 06/22/16 00:00 Urine Urobilinogen 3.0 mg/dL (<2.0) 06/22/16 00:00 Ur Leukocyte Esterase Negative (Negative) 06/22/16 00:00 Fluid Source Peritoneal 06/23/16 13:45 Fluid Appearance Clear 06/23/16 13:45 Fluid RBC 325 /uL 06/23/16 13:45 Fluid Nucleated Cells 65 /uL 06/23/16 13:45 Fluid Polynuclear WBCs 28 % 06/23/16 13:45 Fluid Mononuclear WBCs 72 % 06/23/16 13:45 Fluid Comment Few Mesothelial 06/23/16 13:45 Vancomycin Trough 21.0 ug/mL 06/23/16 19:16 Hepatitis A IgM Ab NEGATIVE 06/23/16 05:51 Hep Bs Antigen Negative 06/23/16 05:51 Hep B Core IgM Ab NEGATIVE 06/23/16 05:51 Hep C IgG Ab Negative (Negative) 06/23/16 05:51 Microbiology 06/23/16 13:45 Ascites Fluid Gram Stain - Final 06/23/16 13:45 Ascites Fluid Body Fluid Culture - Final Assessment and Plan (1) Bilateral lower leg cellulitis Narrative/Plan: 71-year-old male presents to Hospital with worsening of his overall status especially of his ascites and the effects was having on him. Because of the been quite sometime since his last paracentesis sought care for this. He is now status post a high-volume 12 L paracentesis and he relates he feels considerably better. Still feels a bit bloated. He has been seen by nephrology because of his acute renal failure concerns of the hepatorenal syndrome. Fortunately showing some slight improvement today. He has hypoalbuminemia, alcoholism and significant chronic edema. This is cause significant changes to his skin which is resulted in the very dried cracking appearance. At this time local skin care with moisturizer should be utilize Silvadene is being applied and is reasonable and can be wrapped into place of the lower extremities. He been on Aldactone that is now discontinued. The patient did have a paracentesis and that fluid has been sent to the laboratory. While cultures are pending antibiotic therapy has begun. When utilize ceftriaxone which will give us coverage for both infection of the peritoneal cavity as well as difficulties with his skin. If he becomes febrile blood cultures will be helpful. Overall the patient has quite a poor prognosis. The peritoneal cultures are now negative and the Rocephin is discontinued. A follow-up paracentesis was performed with no evidence of any spontaneous bacterial peritonitis occurring. The patient does not have significant renal failure and does not have an elevated bilirubin. He has not had evidence of this prior bouts of spontaneous bacteria peritonitis in would not need prophylaxis at this point in time. will likely need some follow-up therapy for the very dry skin Status: Acute (2) Alcoholic liver disease Status: Chronic (3) Leukocytosis Status: Acute
[2016-06-30] MEDS: MIDODRINE 5 MG TAB PO SCH ×2 (06:55→16:23)
[2016-06-30] MEDS: IPRATROPIUM-ALBUTEROL 3 ML NEB INHALATION SCH ×4 (08:45→19:44)
[2016-06-30] MEDS: SPIRONOLACTONE 25 MG TAB PO SCH ×2 (09:08→20:05)
[2016-06-30] MEDS: NICOTINE 21MG/24HR PATCH TRANSDERM SCH (09:08)
[2016-06-30] MEDS: DIGOXIN 125 MCG TAB PO SCH (09:08)
[2016-06-30] MEDS: FUROSEMIDE 40 MG TAB PO SCH ×2 (09:09→16:23)
[2016-06-30] MEDS: METOPROLOL TARTRATE 25 MG TAB PO SCH ×2 (09:15→20:05)
[2016-06-30] MEDS: LISINOPRIL 2.5 MG TAB PO SCH (09:15)
--- NOTE | 2016-06-30 12:46 | P.PN ---
Subjective Principal diagnosis: Patient is seen in follow-up for acute kidney injury. Renal function is improved since admission with creatinine at 1.1 as of yesterday. Admits to good urine output. Patient denies any chest pain or shortness of breath. He does have history of severe systolic dysfunction with ejection fraction of 20% as well as liver cirrhosis. His last paracentesis was on June 28 and 7.5 L was drained. He did receive albumin. He is currently maintained on Lasix as well as Aldactone. He's here to go home. Appetite is good. No vomiting or diarrhea. Vital signs are stable. General: The patient appeared well nourished and normally developed. HEENT: Head exam is unremarkable. Neck is without jugular venous distension. LUNGS: Lungs are clear to auscultation and percussion. Breath sounds decreased. HEART: Rate and Rhythm are regular. First and second heart sounds normal. No murmurs, rubs or gallops. ABDOMEN: Abdominal exam reveals normal bowel sounds. Moderately distended. EXTREMITITES: No clubbing, cyanosis, or edema. Objective - Vital Signs Vital signs: Vital Signs Temp 97.5 F L 06/30/16 11:44 Pulse 88 06/30/16 12:13 Resp 18 06/30/16 11:44 BP 108/85 06/30/16 11:44 Pulse Ox 91 L 06/30/16 11:44 Intake & Output 06/29/16 06/30/16 06/30/16 18:59 06:59 18:59 Intake Total 420 4 Output Total 100 1500 Balance 320 -1496 Weight 99.9 kg Intake: Oral 420 4 Output: Urine 100 1500 Other: Voiding Method Urinal Urinal # Voids 1 # Bowel Movements 1 - Labs CBC & Chem 7: 06/28/16 05:40 06/29/16 06:30 Assessment and Plan Plan: Assessment: #1. Nonoliguric acute kidney injury related to compartment syndrome from tense ascites. There may be underlying chronic kidney disease stage II with baseline creatinine near 1.1-1.2 related to hepatorenal syndrome as well as cardiorenal syndrome. Urinalysis is quite benign. #2. Ascites. Improved post paracentesis on June 28. #3. Systolic CHF with ejection fraction of 20%. #4. Hyperkalemia secondary to Aldactone. Resolved. #5. Hypervolemic hyponatremia. Stable. #6. Hypotension related to cardiac and liver dysfunction. Plan: Continue Lasix 40 mg twice daily along with Aldactone 25 mg twice daily. Maintain Midodrine 5 mg twice daily. Avoid nephrotoxic agents and hypotensive episodes. Will need weekly scheduled paracentesis. Possible home with hospice today.
--- NOTE | 2016-06-30 21:14 | P.PN ---
Subjective Principal diagnosis: edema 11-year-old male with chronic alcoholism who has many medical troubles include alcoholic cardiomyopathy with ejection fraction of 20%, cirrhosis with recurrent ascites and chronic upper and lower extremity edema. Presents to Hospital feeling very poorly. Having significant worsening overall edema and much worsening ascites. Because of this he presented to Hospital. He relates in the past he was having paracentesis performed on an ongoing basis. But has now been several months since occurred she's had a marked worsening of his status. At presentation there is evidence of the extensive ascites, acute on chronic renal failure as well as extensive edema with changes to his skin. The patient is somewhat of a poor historian. Relates that he just feels poorly overall did feel better after the 12 L high-volume paracentesis, but has had fluid again building and plans for paracentsis tomorrow.he is denying fevers chills or rigors. Appetite somewhat improved today and is eating his meals better. a second paracentesis was performed. 7 a half liters of fluid were removed. He definitely feels better likely being discharged tomorrow Objective - Vital Signs Vital signs: Vital Signs Temp 96.3 F L 06/30/16 20:11 Pulse 104 H 06/30/16 20:11 Resp 18 06/30/16 20:11 BP 105/57 06/30/16 20:11 Pulse Ox 95 06/30/16 20:11 Intake & Output 06/30/16 06/30/16 07/01/16 06:59 18:59 06:59 Intake Total 4 402 Output Total 1500 Balance -1496 402 Weight 99.9 kg Intake: Oral 4 402 Output: Urine 1500 Other: Voiding Method Urinal Urinal Urinal # Voids 1 1 # Bowel Movements 1 1 - Exam 71-year-old male doing very poorly due to his chronic alcoholism. HEENT: Mildly icteric conjunctiva are pink and moist nasal mucosa grossly intact without significant lesions, there is no thrush. Dentition very poor Neck: The neck is supple without significant lymphadenopathy or thyromegaly. Lungs: Symmetrical air entry with few basilar crackles and expiratory wheezes are scattered no egophony or changes of tactile fremitus Heart: Irregular with an audible S1-S2, no S3 positive S4. 2 over 6 systolic murmur is noted without click or rub Abdomen: Positive bowel sounds soft and nontender without palpable masses or organomegaly. There was no guarding or rebound. increased girth Neuro: Awake alert oriented to person place and time. There are no acute new gross focal sensory motor deficits.ed girth Extremities: The upper and lower extremities show evidence of significant edema. The skin is dry and cracked with significant flaking. Evaluation there are no open or weeping areas. The skin however has generalized dryness. He relates it's minimally pruritic and just feels dry. Neuro: Awake alert oriented to person place and time. brighter affect - Labs CBC & Chem 7: 06/28/16 05:40 06/29/16 06:30 Labs: Laboratory Results WBC 9.2 k/uL (3.8-10.6) 06/27/16 05:35 RBC 4.04 m/uL (4.30-5.90) L 06/27/16 05:35 Hgb 12.3 gm/dL (13.0-17.5) L 06/27/16 05:35 Hct 38.9 % (39.0-53.0) L 06/27/16 05:35 MCV 96.3 fL (80.0-100.0) 06/27/16 05:35 MCH 30.4 pg (25.0-35.0) 06/27/16 05:35 MCHC 31.5 g/dL (31.0-37.0) 06/27/16 05:35 RDW 16.6 % (11.5-15.5) H 06/27/16 05:35 Plt Count 213 k/uL (150-450) 06/28/16 05:40 Neutrophils % 83 % 06/27/16 05:35 Lymphocytes % 5 % 06/27/16 05:35 Monocytes % 8 % 06/27/16 05:35 Eosinophils % 2 % 06/27/16 05:35 Basophils % 1 % 06/27/16 05:35 Neutrophils # 7.6 k/uL (1.3-7.7) 06/27/16 05:35 Lymphocytes # 0.5 k/uL (1.0-4.8) L 06/27/16 05:35 Monocytes # 0.7 k/uL (0-1.0) 06/27/16 05:35 Eosinophils # 0.2 k/uL (0-0.7) 06/27/16 05:35 Basophils # 0.1 k/uL (0-0.2) 06/27/16 05:35 Hypochromasia Slight 06/27/16 05:35 Poikilocytosis Slight 06/26/16 06:00 Anisocytosis Slight 06/27/16 05:35 Macrocytosis Slight 06/27/16 05:35 PT 13.2 sec (9.0-12.0) H 06/28/16 05:40 INR 1.3 (<1.1) 06/28/16 05:40 APTT 50.9 sec (22.0-30.0) H 06/22/16 02:24 Sodium 135 mmol/L (137-145) L 06/29/16 06:30 Potassium 4.5 mmol/L (3.5-5.1) 06/29/16 06:30 Chloride 94 mmol/L (98-107) L 06/29/16 06:30 Carbon Dioxide 34 mmol/L (22-30) H 06/29/16 06:30 Anion Gap 7 mmol/L 06/29/16 06:30 BUN 34 mg/dL (9-20) H 06/29/16 06:30 Creatinine 1.10 mg/dL (0.66-1.25) 06/29/16 06:30 Est GFR (MDRD) Af Amer >60 (>60 ml/min/1.73 sqM) 06/29/16 06:30 Est GFR (MDRD) Non-Af >60 (>60 ml/min/1.73 sqM) 06/29/16 06:30 Glucose 116 mg/dL (74-99) H 06/29/16 06:30 Osmolality 287 mosm/kg (280-301) 06/29/16 06:30 Calcium 8.5 mg/dL (8.4-10.2) 06/29/16 06:30 Phosphorus 4.0 mg/dL (2.5-4.5) 06/21/16 18:08 Magnesium 1.7 mg/dL (1.6-2.3) 06/29/16 06:30 Total Bilirubin 1.3 mg/dL (0.2-1.3) 06/23/16 05:51 AST 28 U/L (17-59) 06/23/16 05:51 ALT 32 U/L (21-72) 06/23/16 05:51 Alkaline Phosphatase 155 U/L (38-126) H 06/23/16 05:51 Ammonia 23 umol/L (<30) 06/23/16 05:51 Total Creatine Kinase 125 U/L (55-170) 06/21/16 18:08 CK-MB (CK-2) 10.0 ng/mL (0.0-2.4) H* 06/21/16 18:08 CK-MB (CK-2) Rel Index 8.0 06/21/16 18:08 Troponin I 0.052 ng/mL (0.000-0.034) H* 06/22/16 08:20 NT-Pro-B Natriuret Pep 45535 pg/mL 06/21/16 18:08 Total Protein 6.7 g/dL (6.3-8.2) 06/23/16 05:51 Albumin 3.5 g/dL (3.5-5.0) 06/23/16 05:51 Tumor Marker AFP 2.3 ng/mL (0.0-7.9) 06/23/16 09:27 TSH 11.000 mIU/L (0.465-4.680) H 06/22/16 08:20 Free T4 1.33 ng/dL (0.78-2.19) 06/22/16 08:20 Urine Color Yellow 06/22/16 00:00 Urine Appearance Clear (Clear) 06/22/16 00:00 Urine pH 5.0 (5.0-8.0) 06/22/16 00:00 Ur Specific [place] 1.011 (1.001-1.035) 06/22/16 00:00 Urine Protein Trace (Negative) H 06/22/16 00:00 Urine Glucose (UA) Negative (Negative) 06/22/16 00:00 Urine Ketones Negative (Negative) 06/22/16 00:00 Urine Blood Negative (Negative) 06/22/16 00:00 Urine Nitrate Negative (Negative) 06/22/16 00:00 Urine Bilirubin Negative (Negative) 06/22/16 00:00 Urine Urobilinogen 3.0 mg/dL (<2.0) 06/22/16 00:00 Ur Leukocyte Esterase Negative (Negative) 06/22/16 00:00 Fluid Source Peritoneal 06/23/16 13:45 Fluid Appearance Clear 06/23/16 13:45 Fluid RBC 325 /uL 06/23/16 13:45 Fluid Nucleated Cells 65 /uL 06/23/16 13:45 Fluid Polynuclear WBCs 28 % 06/23/16 13:45 Fluid Mononuclear WBCs 72 % 06/23/16 13:45 Fluid Comment Few Mesothelial 06/23/16 13:45 Vancomycin Trough 21.0 ug/mL 06/23/16 19:16 Hepatitis A IgM Ab NEGATIVE 06/23/16 05:51 Hep Bs Antigen Negative 06/23/16 05:51 Hep B Core IgM Ab NEGATIVE 06/23/16 05:51 Hep C IgG Ab Negative (Negative) 06/23/16 05:51 Miscellaneous Test Albumin,Peritoneal 06/23/16 13:45 Misc Test Result See Comment 06/23/16 13:45 Microbiology 06/23/16 13:45 Ascites Fluid Gram Stain - Final 06/23/16 13:45 Ascites Fluid Body Fluid Culture - Final Assessment and Plan (1) Bilateral lower leg cellulitis Narrative/Plan: 71-year-old male presents to Hospital with worsening of his overall status especially of his ascites and the effects was having on him. Because of the been quite sometime since his last paracentesis sought care for this. He is now status post a high-volume 12 L paracentesis and he relates he feels considerably better. Still feels a bit bloated. He has been seen by nephrology because of his acute renal failure concerns of the hepatorenal syndrome. Fortunately showing some slight improvement today. He has hypoalbuminemia, alcoholism and significant chronic edema. This is cause significant changes to his skin which is resulted in the very dried cracking appearance. At this time local skin care with moisturizer should be utilize Silvadene is being applied and is reasonable and can be wrapped into place of the lower extremities. He been on Aldactone that is now discontinued. The patient did have a paracentesis and that fluid has been sent to the laboratory. While cultures are pending antibiotic therapy has begun. When utilize ceftriaxone which will give us coverage for both infection of the peritoneal cavity as well as difficulties with his skin. If he becomes febrile blood cultures will be helpful. Overall the patient has quite a poor prognosis. The peritoneal cultures are now negative and the Rocephin was discontinued. A follow-up paracentesis was performed with no evidence of any spontaneous bacterial peritonitis occurring. The patient does not have significant renal failure and does not have an elevated bilirubin. He has not had evidence of this prior bouts of spontaneous bacteria peritonitis in would not need prophylaxis at this point in time. will likely need some follow-up therapy for the very dry skin Laboratory for discharge to home on diabetic therapy is required. Status: Acute (2) Alcoholic liver disease Status: Chronic (3) Leukocytosis Status: Acute
--- NOTE | 2016-06-30 22:04 | PN ---
DATE OF SERVICE: 06/30/2016 PRESENTING COMPLAINT: Short of breath. INTERVAL HISTORY: This patient has alcoholic cirrhosis, severe ascites, had paracentesis and a total of about 18 L removed; also had acute renal failure, chronic kidney disease, COPD, pneumonia, severe cellulitis. I met with the patient's daughter earlier today. Patient has been tolerating a diet. Review of systems done for constitutional, cardiovascular, GI, pulmonary; relevant findings as above. Current medications are reviewed. On examination, temperature 97.1, pulse 91, respirations 18, blood pressure 89/40, pulse ox 92% on 4L GENERAL: Sitting up, tired-appearing. EYES: Pupils equal. Conjunctivae pale. NECK: JVD not raised. Mass not palpable. RESPIRATORY: Effort increased. LUNGS: Decreased breath sounds. CARDIOVASCULAR: Heart sounds regular. Decreased edema. ABDOMEN: Distended, soft. Liver and spleen not palpable. PSYCHIATRY: Awake, answering questions. INVESTIGATIONS: Potassium 4.5, BUN 34, creatinine 1.10. ASSESSMENT: 1. Acute and chronic congestive heart failure exacerbation from systolic dysfunction, alcoholic cardiomyopathy; ejection fraction 20% to 25%. 2. Acute respiratory failure, hypoxic on admission from underlying chronic obstructive pulmonary disease and pulmonary edema. 3. Chronic hypoxic respiratory failure. Patient has oxygen at home. 4. Acute chronic obstructive pulmonary disease exacerbation in a smoker. 5. Chronic nicotine dependence. Patient is an active cigarette smoker. 6. Persistent atrial fibrillation, not a candidate for anticoagulation for multiple reasons, including falls and alcoholism. 7. Acute on chronic renal failure, probably multifactorial. 8. Chronic alcoholism. 9. Acute ( ) lower extremity, improved. 10. Ichthyosis. 11. Tense ascites on presentation. 12. Alcoholic cirrhosis, total of 18 L has been removed. 13. Acute on chronic cor pulmonale on presentation. 14. Chronic obstructive pulmonary disease in a current smoker. PLAN: I had a very lengthy discussion with the daughter earlier and then had a second discussion with the patient. Looking at discharge planning, will arrange for a home bed with a mattress. I reinforced about not smoking, alcohol. Advanced care planning was discussed again with the patient at length and talked over overall poor prognosis and he did agree that if the patient went downhill at home, then hospice will be consulted. He understands overall poor prognosis. Total time for advanced care planning in addition to the progress note was about 20 to 25 minutes.
[2016-07-01] MEDS: MIDODRINE 5 MG TAB PO SCH (06:55)
[2016-07-01 07:28] LABS: Anion Gap 9 mmol/L; Blood Urea Nitrogen 35 mg/dL (9-20); Calcium 8.6 mg/dL (8.4-10.2); Carbon Dioxide 28 mmol/L (22-30); Chloride 98 mmol/L (98-107); Glucose 94 mg/dL (74-99); Non-African American GFR(MDRD) >60 (>60 ml/min/1.73 sqM); Potassium 4.8 mmol/L (3.5-5.1); Sodium 135 mmol/L (137-145)
[2016-07-01] MEDS: LISINOPRIL 2.5 MG TAB PO SCH (08:50)
[2016-07-01] MEDS: METOPROLOL TARTRATE 25 MG TAB PO SCH (08:55)
[2016-07-01] MEDS: FUROSEMIDE 40 MG TAB PO SCH (08:55)
[2016-07-01] MEDS: NICOTINE 21MG/24HR PATCH TRANSDERM SCH (08:55)
[2016-07-01] MEDS: SPIRONOLACTONE 25 MG TAB PO SCH (08:55)
[2016-07-01] MEDS: DIGOXIN 125 MCG TAB PO SCH (08:56)
[2016-07-01] MEDS: IPRATROPIUM-ALBUTEROL 3 ML NEB INHALATION SCH ×2 (09:03→12:48)
[2016-07-01 09:17] VITALS: RESP 20
--- NOTE | 2016-07-01 09:33 | P.PN ---
Subjective Principal diagnosis: Patient is seen in follow-up for acute kidney injury. Renal function is improved since admission with creatinine at 1.05 today. Admits to good urine output. Patient denies any chest pain or shortness of breath. He does have history of severe systolic dysfunction with ejection fraction of 20% as well as liver cirrhosis. His last paracentesis was on June 28 and 7.5 L was drained. He did receive albumin. He is currently maintained on Lasix as well as Aldactone. He's here to go home. Appetite is good. No vomiting or diarrhea. Vital signs are stable. General: The patient appeared well nourished and normally developed. HEENT: Head exam is unremarkable. Neck is without jugular venous distension. LUNGS: Lungs are clear to auscultation and percussion. Breath sounds decreased. HEART: Rate and Rhythm are regular. First and second heart sounds normal. No murmurs, rubs or gallops. ABDOMEN: Abdominal exam reveals normal bowel sounds. Moderately distended. EXTREMITITES: No clubbing, cyanosis, or edema. Objective - Vital Signs Vital signs: Vital Signs Temp 97 F L 07/01/16 08:55 Pulse 80 07/01/16 09:13 Resp 20 07/01/16 08:55 BP 95/58 07/01/16 08:55 Pulse Ox 93 L 07/01/16 08:55 Intake & Output 06/30/16 07/01/16 07/01/16 18:59 06:59 18:59 Intake Total 402 240 Output Total 1000 Balance 402 -1000 240 Weight 100.5 kg Intake: Oral 402 240 Output: Urine 1000 Other: Voiding Method Urinal Urinal Urinal # Voids 1 1 # Bowel Movements 1 1 - Labs CBC & Chem 7: 06/28/16 05:40 07/01/16 06:07 Labs: Abnormal Lab Results - Last 24 Hours (Table) 07/01/16 Range/Units 06:07 Sodium 135 L (137-145) mmol/L BUN 35 H (9-20) mg/dL Assessment and Plan Plan: Assessment: #1. Nonoliguric acute kidney injury related to compartment syndrome from tense ascites. There may be underlying chronic kidney disease stage II with baseline creatinine near 1.1-1.2 related to hepatorenal syndrome as well as cardiorenal syndrome. Urinalysis is quite benign. #2. Ascites. Improved post paracentesis on June 28. #3. Systolic CHF with ejection fraction of 20%. #4. Hyperkalemia secondary to Aldactone. Resolved. #5. Hypervolemic hyponatremia. Stable. #6. Hypotension related to cardiac and liver dysfunction. Plan: Continue Lasix 40 mg twice daily along with Aldactone 25 mg twice daily. Maintain Midodrine 5 mg twice daily. Avoid nephrotoxic agents and hypotensive episodes. Will need weekly scheduled paracentesis. Stable to be discharged home from nephrology standpoint. He is currently refusing hospice at this time. I strongly advised him to avoid alcohol and to be compliant with his medications. He will need to follow-up as an outpatient in the next 1-2 weeks.
[2016-07-01 11:57] VITALS: BP 89/62; TEMP 96.8
[2016-07-01] MEDS ORDERED: LISINOPRIL 2.5 MG TAB PO SCH (12:00)
[2016-07-01 12:59] VITALS: PULSE 84
[2016-07-01 13:50] VITALS: BMI 29.2
--- NOTE | 2016-07-02 15:26 | DS ---
DATE OF ADMISSION: 06/21/2016 DATE OF DISCHARGE: 07/01/2016 FINAL DIAGNOSES: 1. 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 2. Acute respiratory failure, hypoxic on admission from underlying chronic obstructive pulmonary disease exacerbation and pulmonary edema. 3. Chronic hypoxic respiratory failure. The patient is on oxygen at home. 4. Acute chronic obstructive pulmonary disease exacerbated in a smoker. 5. Chronic nicotine dependence. Patient is an active cigarette smoker. 6. Persistent atrial fibrillation not a candidate for anticoagulation for multiple reasons including falls or alcoholism. 7. Acute on chronic renal failure, probably failure. 8. Chronic alcoholism. 9. Acute severe cellulitis, bilateral lower extremity. 10. Ichthyosis. 11. Tense ascites on presentation. 12. 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 13. Acute on chronic cor pulmonale on admission. 14. Chronic obstructive pulmonary disease in a current smoker. CONSULTATION: 1. Dr. Gomez from Nephrology. 2. Dr. Higgins from Infectious Disease. 3. Dr. Mcgee from Urology. 4. Dr. Nash from Cardiology. HOSPITAL COURSE: This is a patient with a significant history of alcoholism and smoking, ( ) and so presented with multiple problems including CHF exacerbation, COPD exacerbation and also has cor pulmonale, underlying cirrhosis. Patient had paracentesis type 2 totally about 18 liters. Patient's 2-D echocardiogram showed EF of 20 and 25%. Patient's right ventricle is moderate to severely enlarged. I had multiple discussions with the patient. Initially patient is very sick, but plan was discharge. The patient was mentally with it and able to carry out a conversation. Patient overall poor prognosis was discussed with him, which he understood. I did talk to patient several times about going to rehab, but he declined and he simply wanted to go home. I also talked to him about hospice. He did not want hospice until his health further deteriorated. He told me not to talk to him further. Today, patient's daughter had called. She was upset that while father is not going home on hospice. I did explain to her clearly that patient's wishes had to be respected and patient did not want hospice and he was mentally competent. Again, this was discussed with the patient in the presence of nurses and patient is clear that he wants to go home. Home care will be added. Home care will be done and if he deteriorates then he will take hospice, but not at the present time. Patient is actually able to walk a few steps and able to carry out a conversation. On examination: LUNGS: Decreased breath sounds. CARDIOVASCULAR: First and second sounds. ABDOMEN: Slightly distended. PSYCH: Alert and oriented x3. Mood and affect normal. DISCHARGE MEDICATIONS: 1. ProAir HFA 2 puffs q.6 p.r.n. 2. Lipitor 10 mg q.h.s. 3. Artificial Tears one drop to both eyes t.i.d. p.r.n. 4. Digoxin 125 mcg p.o. daily. 5. Lasix 40 mg p.o. daily. 6. DuoNeb q.i.d. 120. 7. Lopressor 25 mg p.o. b.i.d. 8. Midodrine 5 mg p.o. b.i.d. 9. Nicotine 20 mg patch daily. 10. Silvadene cream topically b.i.d. 11. Aldactone 50 mg p.o. daily. 12. Patient's DANIELA inhibitor has been held because of low blood pressure. Follow with Dr. Rodríguez on 07/14/2016, follow with Darien Andersen on 07/09/16, follow with Dr. Gomez on 07/26/16. Discharge planning more than 35 minutes.
== END 2016-07-01 15:03 | disposition home health service (06) | DRG 291 ==
LOC: EC 17:43 → 6SEL 19:50
PROVIDERS: ADMIT Hospitalist; ATTEND Hospitalist
PROC: 0T9B8ZZ Drainage of Bladder, Via Natural or Artificial Opening Endoscopic (ICD-10-PCS; principal; 2016-06-22)
PROC: 0W9G3ZZ Drainage of Peritoneal Cavity, Percutaneous Approach (ICD-10-PCS; 2016-06-28)
DX: I13.0 Hypertensive heart and chronic kidney disease with heart failure and stage 1 through stage 4 chronic kidney disease, or unspecified chronic kidney disease (principal); I50.23 Acute on chronic systolic (congestive) heart failure; J96.21 Acute and chronic respiratory failure with hypoxia; N17.9 Acute kidney failure, unspecified; J18.9 Pneumonia, unspecified organism; D68.9 Coagulation defect, unspecified; K76.6 Portal hypertension; I42.6 Alcoholic cardiomyopathy; J44.0 Chronic obstructive pulmonary disease with (acute) lower respiratory infection; E87.1 Hypo-osmolality and hyponatremia; I48.1 Persistent atrial fibrillation; J44.1 Chronic obstructive pulmonary disease with (acute) exacerbation; J98.11 Atelectasis; L03.114 Cellulitis of left upper limb; L03.115 Cellulitis of right lower limb; L03.116 Cellulitis of left lower limb; T79.A0XA Compartment syndrome, unspecified, initial encounter; I27.81 Cor pulmonale (chronic); K70.31 Alcoholic cirrhosis of liver with ascites; I48.2 Chronic atrial fibrillation; E88.09 Other disorders of plasma-protein metabolism, not elsewhere classified; E87.5 Hyperkalemia; E78.00 Pure hypercholesterolemia, unspecified; E78.5 Hyperlipidemia, unspecified; F10.20 Alcohol dependence, uncomplicated; F17.210 Nicotine dependence, cigarettes, uncomplicated; I25.10 Atherosclerotic heart disease of native coronary artery without angina pectoris; K70.40 Alcoholic hepatic failure without coma; N18.9 Chronic kidney disease, unspecified; N40.0 Benign prostatic hyperplasia without lower urinary tract symptoms; N50.89 Other specified disorders of the male genital organs; T50.2X5A Adverse effect of carbonic-anhydrase inhibitors, benzothiadiazides and other diuretics, initial encounter; Z86.14 Personal history of Methicillin resistant Staphylococcus aureus infection; Z86.718 Personal history of other venous thrombosis and embolism; Z99.81 Dependence on supplemental oxygen
CPT/HCPCS: 36415; 49083; 71010; 71020; 76700; 76705; 80048; 80053; 80074; 80202; 81003; 82042; 82105; 82140; 82550; 82553; 82945; 83735; 83880; 83930; 84100; 84132; 84157; 84439; 84443; 84484; 85025; 85049; 85610; 85730; 87070; 87205; 88108; 88305; 89050; 93005; 93306; 94640; 94760; 96365; 96366; 96367; 96375; 96376; 99285